=== PATIENT | male | born 1955 | race Caucasian/White ===

== ENCOUNTER 2018-01-02 11:51 | Day surgery (SDC) | payer BC ==
[2018-01-02 12:20] LABS: Absolute Lymphocytes (CBC) 0.6 K/uL (0.7-4.9); Absolute Monocytes 0.5 K/uL (0.1-1.3); Absolute Neutrophil 2.5 K/uL (1.8-8.0); Basophils % 0.7 % (0-1.3); Eosinophils % 2.8 % (0-4.4); Hematocrit 35.1 % (39.6-49.0); Lymphocytes % 15.8 % (15.3-44.8); MCH 28.7 pg (27.0-35.0); MCV 91.2 fL (80-100); Monocytes % 14.2 % (3.3-12.3); RBC Red Blood Cell Count 3.85 M/uL (4.33-5.43)
[2018-01-02 12:25] LABS: BUN Blood Urea Nitrogen 12 mg/dL (6-20); Bicarbonate 28 mEq/L (21-31); Glucose Level 103 mg/dL (65-120); Potassium 4.2 mEq/L (3.6-5.0); Sodium Level 137 mEq/L (135-145)
[2018-01-02] MEDS ORDERED: BUPIVACAINE 0.5% Inj,MDV 50 mL VIAL ONE (12:34)
[2018-01-02] MEDS ORDERED: Ringers Lactate 1,000 ML IV ONE (12:43)
[2018-01-02] MEDS ORDERED: CEFAZOLIN/SWI 1gm 1 GM/10 ML SYR ONE (12:43)
[2018-01-02] MEDS ORDERED: MIDAZOLAM HCL 2 MG/2 ML INJ ONE (12:54)
--- NOTE | 2018-01-02 13:01 | RAD REPORT ---
EXAM DESCRIPTION: RAD - Chest Pa And Lat (2 Views) - 01/02/2018 12:50 pm CLINICAL HISTORY: Preop chest, port removal and/ or replacement COMPARISON: None. TECHNIQUE: PA and lateral views of the chest were obtained. FINDINGS: The lungs are clear. Right-sided Port-A-Cath is in place. No suspicious port findings not ed. Heart size is normal and central vasculature is within normal limits. No pleural effusion or pne umothorax seen. No acute bony finding noted. No aortic abnormality. IMPRESSION: No acute cardiopulmonary process.
[2018-01-02] MEDS ORDERED: FENTANYL CITR 100 MCG/2 ML ONE (13:09)
[2018-01-02] MEDS ORDERED: PROPOFOL 200 MG/20 ML VIAL IV ONE (13:09)
[2018-01-02] MEDS ORDERED: ONDANSETRON HCL 40 MG/20 ML VIAL ONE (13:10)
--- NOTE | 2018-01-02 13:19 | EKG ---
Test Date: 2018-01-02 Test Time: 12:00:19 Envelope Fold Operator: KELLY MEASUREMENT RESULTS: Intervals: Rate: 53 NC: 160 QRSD: 90 QT: 430 QTc: 403 [place]: P: 63 NC: 160 QRS: 78 T: 70 INTERPRETIVE STATEMENTS: Sinus bradycardia Otherwise normal ECG Compared to ECG 08/07/2001 09:04:00 Sinus rhythm no longer present Electronically Signed On 01-02-18 13:18:47 CDT by Wes Rowell
--- NOTE | 2018-01-02 13:27 | P.BOP ---
Preoperative diagnosis: pancreatic cancer Postoperative diagnosis: same Primary procedure: Removal of portacath Estimated blood loss: <5cc Specimen: intact portacath Anesthesia: General Complications: None Drain(s): Other Transferred to: Recovery Room Condition: Good
--- NOTE | 2018-01-03 01:03 | OP ---
Date of Procedure: 01/02/2018 Surgeon: Brent Cruz MD Foreman Or Supervisor And Operator: None. Postoperative Diagnosis: Pancreatic cancer. Postoperative Diagnosis: Pancreatic cancer. Procedures: Pre removal of Port-A-Cath. Estimated Blood Loss: Less than 10 cc. Specimens: Port-A-Cath. Indications: This is a case of a 62-year-old patient, receiving chemotherapy through a Port-A-Cath b ut that Port-A-Cath, at least half of that is exposed. The skin on top of that disappear and needs t o be removed. The benefits, alternatives, and removal fully explained to the patient, which include but are not limited to infection, bleeding, damage to adjacent structures, anesthesia complication, M I, and even . He also understands this may not relieve any symptoms. He might need more than o ne surgical intervention. He understands he will require wound care. He signed a consent. Description Of Procedure: The patient was brought to the operating room, placed in the supine positi on. Anesthesia was done without complication. Right chest was prepped and draped in a sterile fashi on. A time-out was called. An incision was made in the skin. The Port-A-Cath was identified, so re ally identified with the skin because of the skin is necrotic already, so I removed the connection of the Port-A-Cath to the subcutaneous tissue and then pulled a Port-A-Cath intact and put pressure for 15 minutes in insertion site. The area was irrigated. No bleeding. The area was left to close by secondary intention put in a triple antibiotics and sterile dressings over the area. The patient glenna erated the procedure well. The patient was sent to recovery in stable condition. DISCHARGE SUMMARY Diagnosis: Pancreatic cancer. Procedure: Removal of Port-A-Cath. Disposition: Home. Activity: As tolerated. No heavy lifting. Followup: Followup in my office in 1 week. Call for appointment [phone]. Medications: The patient will use triple antibiotics that might need over the area twice a day may c lean the area with soap and water. MODESTO/ADRIANNA Voice ID: [id number] Report ID: [id number]
== END 2018-01-02 15:00 | disposition home or self-care (01) ==
LOC: OR 11:51
PROVIDERS: ATTEND Surgery
PROC: 0JPT0WZ Removal of Totally Implantable Vascular Access Device from Trunk Subcutaneous Tissue and Fascia, Open Approach (ICD-10-PCS; principal; 2018-01-02 13:15)
DX: Z45.2 Encounter for adjustment and management of vascular access device (principal); C25.9 Malignant neoplasm of pancreas, unspecified; Z88.6 Allergy status to analgesic agent
CPT/HCPCS: 36415; 71046; 80048; 85025; 88300; 93005; J0690; J2250; J2405; J3010

== ENCOUNTER 2018-01-11 08:33 | Day surgery (SDC) | payer BC ==
[2018-01-11] MEDS ORDERED: Ringers Lactate 1,000 ML IV ONE (08:46)
[2018-01-11] MEDS ORDERED: CEFAZOLIN/SWI 1gm 1 GM/10 ML SYR ONE (08:46)
[2018-01-11 09:01] LABS: Absolute Lymphocytes (CBC) 0.5 K/uL (0.7-4.9); Absolute Monocytes 0.4 K/uL (0.1-1.3); Absolute Neutrophil 1.8 K/uL (1.8-8.0); Basophils % 0.6 % (0-1.3); Hematocrit 35.1 % (39.6-49.0); Lymphocytes % 17.4 % (15.3-44.8); MCH 29.6 pg (27.0-35.0); MCV 89.5 fL (80-100); MPV 7.6 fL (7.6-11.3); Monocytes % 14.8 % (3.3-12.3); RBC Red Blood Cell Count 3.93 M/uL (4.33-5.43)
[2018-01-11 09:33] LABS: Bicarbonate 28 mEq/L (21-31); Glucose Level 116 mg/dL (65-120); Potassium 4.7 mEq/L (3.6-5.0); Sodium Level 139 mEq/L (135-145)
[2018-01-11 09:34] LABS: BUN Blood Urea Nitrogen 17 mg/dL (6-20)
[2018-01-11] MEDS ORDERED: NS 0.9% VIAL 20 ML ONE (11:11)
[2018-01-11] MEDS: LIDOCAINE 1% 20 ML MDV ONE ×2 (11:54→13:03)
[2018-01-11] MEDS: HEPARIN 5000 UNIT/ML 1 ML VIAL ONE ×2 (11:55→13:12)
[2018-01-11] MEDS ORDERED: MIDAZOLAM HCL 2 MG/2 ML INJ ONE (12:42)
[2018-01-11] MEDS ORDERED: PROPOFOL 200 MG/20 ML VIAL IV ONE (12:49)
[2018-01-11] MEDS ORDERED: FENTANYL CITR 100 MCG/2 ML ONE (12:49)
[2018-01-11] MEDS ORDERED: LIDOCAINE 1% MPF 5 ML VIAL ONE (12:49)
[2018-01-11] MEDS ORDERED: NEOSTIGMINE 1 MG/ML -5 ML SYRINGE ONE (13:23)
[2018-01-11] MEDS ORDERED: GLYCOPYRROLATE 0.2 MG/ML SYR ONE (13:23)
--- NOTE | 2018-01-11 13:30 | P.BOP ---
Preoperative diagnosis: pancratic cancer Postoperative diagnosis: same Primary procedure: 1. Placement of Portacath Secondary procedure: 2. interpretation of fluoroscopy Estimated blood loss: <10cc Specimen: none Anesthesia: General Complications: None Implants: single lumen portacath Transferred to: Recovery Room Condition: Good
--- NOTE | 2018-01-11 13:31 | RAD REPORT ---
EXAM DESCRIPTION: RAD - Fluoroscopy <1 Hour - 01/11/2018 1:25 pm FINDINGS: Fluoroscopy of the upper chest performed. Multiple portable C-arm views were obtained during fluoroscopic assisted placement of left subclavian Port-A-Cath. No suspicious or unexpected findings.
[2018-01-11] MEDS: MORPHINE 4 MG/ML SYR ONE ×2 (13:49→14:12)
--- NOTE | 2018-01-11 14:20 | RAD REPORT ---
EXAM DESCRIPTION: RAD - Chest Single View - 01/11/2018 2:06 pm CLINICAL HISTORY: Port-A-Cath placement COMPARISON: January 02, 2018 TECHNIQUE: AP portable chest image was obtained 1358 hours . FINDINGS: Since the last examination the right-sided Port-A-Cath has been removed. Left-sided Port-A -Cath has been placed. Tip is at the proximal most SVC. There is no left-sided pneumothorax or pleura l fluid collection. Lung lopez are clear. Cardiomediastinal silhouette within normal limits. IMPRESSION: Left subclavian Port-A-Cath with the tip in the proximal most SVC. No pneumothorax.
--- NOTE | 2018-01-13 05:24 | OP ---
Date of Procedure: 01/11/2018 Surgeon: Brent Cruz MD Preoperative Diagnosis: Pancreatic cancer. Postoperative Diagnosis: Pancreatic cancer. Procedures: 1.Placement of Port-A-Cath. 2.Interpretation of fluoroscopy. Estimated Blood Loss: Less than 10 cc. Specimen: None. Anesthesia: General plus local. Implant: A single-lumen Port-A-Cath in the left subclavian vein. Indications: This is the case of a 62-year-old patient with history of pancreatic cancer. He is rec eiving chemotherapy in another institution. Has a Port-A-Cath placed in another institution that hav e to be removed because of malfunction about a week ago. The patient was trying to see if he talks t o his oncologist about no chemotherapy or even using a PICC line. That was unsuccessful. He was sen t to us to have a Port-A-Cath placement. He was fully explained the benefits, alternatives, and risk s of Port-A-Cath placement which include, but not limited to infection, bleeding, damage to adjacent structures, anesthesia complication, pulmonary emboli, endocarditis, breaking of the catheter, deep v ein thrombosis, pneumothorax, CT, or even . He also understands this may not relieve the sympto ms. He might need more than one surgical intervention. He understood and signed the consent. Description Of Procedure: The patient was brought to the operating room, placed in supine position. Anesthesia was without complication. Left chest was prepped and draped in usual sterile fashion. A time-out was called. The patient was placed in Trendelenburg position. An 18-gauge needle was plac ed in the left subclavian vein at the first attempt. A guidewire was passed through, guided into the superior vena cava using fluoroscopy. The needle was removed. A small incision was made in the lef t upper chest with a cavity to allow the Port-A-Cath to be in. I placed an introducer sheath through the guidewire under direct fluoroscopy visualization, removed the guidewire, placed the catheter in, removed the introducer sheath. Then, the catheter was tunneled underneath the skin to meet the new incision to the left upper chest cut to proper size and connected to the Port-A-Cath using the manu cturer's specifications. Fluoroscopy once again was used. Looks to have good placement. Excellent backflow and inflow. The catheter was packed with heparin. The catheter was secured to the subcutan eous tissue and sutured to the subcutaneous tissue. The area was irrigated. Then after that we proc eeded to close the subcutaneous tissue with 3-0 chromic and skin in a subcuticular fashion with 3-0 c hromic and Steri-Strips on top. Sponge count and instrument counts were correct. The patient tolera latanya the procedure well. The patient was sent to recovery in stable condition. Chest x-ray was order ed stat. DISCHARGE SUMMARY Diagnosis: Pancreatic cancer. Procedure: Placement of a Port-A-Cath, interpretation under fluoroscopy. Disposition: Home. Activity: As tolerated. No heavy lifting. Followup: Follow up in my office in 1 week. Call for appointment [phone]. Keep area dry for 48 ho urs, then may shower. Keep Steri-Strips intact. May use the Port-A-Cath at any time. We are waitin g for labs pending and a chest x-ray to be negative. MODESTO/ADRIANNA Voice ID: [id number] Report ID: [id number]
== END 2018-01-11 14:50 | disposition home or self-care (01) ==
LOC: OR 08:33
PROVIDERS: ATTEND Surgery
PROC: 0JH60WZ Insertion of Totally Implantable Vascular Access Device into Chest Subcutaneous Tissue and Fascia, Open Approach (ICD-10-PCS; principal; 2018-01-11 11:30)
DX: C25.9 Malignant neoplasm of pancreas, unspecified (principal); Z88.6 Allergy status to analgesic agent
CPT/HCPCS: 36415; 71045; 76000; 80048; 85025; C1788; J0690; J1644; J2250; J2710; J3010

== ENCOUNTER 2018-05-02 16:45 | Emergency (ER) | payer BC ==
[2018-05-02 18:16] LABS: Absolute Lymphocytes (CBC) 0.3 K/uL (0.7-4.9); Absolute Monocytes 0.9 K/uL (0.1-1.3); Absolute Neutrophil 6.5 K/uL (1.8-8.0); Basophils % 0.2 % (0-1.3); Eosinophils % 0.2 % (0-4.4); Hematocrit 25.4 % (39.6-49.0); Lymphocytes % 3.8 % (15.3-44.8); MCV 83.1 fL (80-100); MPV 7.5 fL (7.6-11.3); Monocytes % 11.2 % (3.3-12.3); RBC Red Blood Cell Count 3.05 M/uL (4.33-5.43)
[2018-05-02 18:17] LABS: Protime INR 1.18
--- NOTE | 2018-05-02 18:26 | RAD REPORT ---
EXAM DESCRIPTION: CT - Head Brain Wo Cont - 05/02/2018 6:18 pm CLINICAL HISTORY: SYNCOPE Drowsiness COMPARISON: No comparisons TECHNIQUE: All CT scans are performed using dose optimization technique as appropriate and may inclu de automated exposure control or mA/KV adjustment according to patient size. FINDINGS: No intracranial hemorrhage, hydrocephalus or extra-axial fluid collection.No areas of brai n edema or evidence of midline shift. The paranasal sinuses and mastoids are clear. The calvarium is intact. IMPRESSION: No acute intracranial abnormality.
[2018-05-02 19:02] LABS: ALT/SGPT 37 U/L (12-78); AST/SGOT 25 U/L (15-37); Albumin 3.1 g/dL (3.4-5.0); Alkaline Phosphatase 109 U/L (45-117); BUN Blood Urea Nitrogen 20 mg/dL (7-18); Bicarbonate 23 mmol/L (21-32); Bilirubin Direct 0.1 mg/dL (0-0.2); Bilirubin Total 0.4 mg/dL (0.2-1.0); Glucose Level 201 mg/dL (74-106); Lipase 29 U/L (73-393); NT PRO-BNP 92 pg/mL (<125); Potassium 3.8 mmol/L (3.5-5.1); Sodium Level 141 mmol/L (136-145); Troponin (Emerg Dept Use Only) < 0.02 ng/mL (0.0-0.045)
[2018-05-02] MEDS ORDERED: NA CHLORIDE 0.9% 1,000 ML ONE ×2 (19:16→22:20)
--- NOTE | 2018-05-02 19:27 | RAD REPORT ---
EXAM DESCRIPTION: RAD - Chest Single View - 05/02/2018 7:01 pm CLINICAL HISTORY: COUGH Chest pain. COMPARISON: Chest Single View dated 01/11/2018; Chest Pa And Lat (2 Views) dated 01/02/2018 FINDINGS: Portable technique limits examination quality. The lungs are grossly clear. The heart is normal in size. No displaced fractures.Left-sided port cath eter its tip in the SVC. IMPRESSION: No acute intrathoracic process suspected.
--- NOTE | 2018-05-02 20:03 | RAD REPORT ---
EXAM DESCRIPTION: CT - Chest For Pe Angio - 05/02/2018 7:51 pm CLINICAL HISTORY: Chest pain. DYSPNEA COMPARISON: No comparisons TECHNIQUE: CT angiogram of the pulmonary arteries was performed with MIP. All CT scans are performed using dose optimization technique as appropriate and may include automated exposure control or mA/KV adjustment according to patient size. FINDINGS: No evidence of pulmonary thromboembolism. No acute aortic finding demonstrated. The lungs are clear. No significant pericardial or pleural fluid. No concerning bony finding. Poorly defined soft tissue is seen in the upper abdomen surrounding the region of the pancreas. 15 x 10 mm oval area of enhancement within these soft tissues likely represents a pseudoaneurysm. Thickeni ng of the distal esophagus is seen with mild dilatation. All of these findings are presumed to be rel ated to the given history of pancreatic carcinoma. No abdominal cross-sectional imaging is available for this patient at this institution. IMPRESSION: No evidence of pulmonary thromboembolism.
[2018-05-02 22:27] LABS: Urine Blood NEGATIVE (NEG); Urine Glucose NEGATIVE (NEG); Urine Protein NEGATIVE (NEG); Urine pH 6.5 (5.0-7.0)
--- NOTE | 2018-05-02 23:51 | ER ---
Nurse's Notes [facility] Name: Camden Soto Age: 62 yrs Sex: Male : 1955 Arrival Date: 05/02/2018 Time: 16:55 Bed 28 Private MD: Diagnosis: Weakness;Syncope and collapse;Volume depletion;Anemia, unspecified Presentation: 05/02 16:57 Presenting complaint: EMS states: patient was driving and became very weak, kr2 light-headed and nauseated. His blood pressure was 94/70s. He has a history of pancreatic cancer, diagnosed in August. Transition of care: patient was not received from another setting of care. Onset of symptoms was May 02, 2018. Risk Assessment: Do you want to hurt yourself or someone else? Patient reports no desire to harm self or others. Initial Sepsis Screen: Does the patient meet any 2 criteria? No. Patient's initial sepsis screen is negative. Does the patient have a suspected source of infection? No. Patient's initial sepsis screen is negative. Care prior to arrival: Medication(s) given: Normal saline infusion, 500 mL, zofran 4 mg. 16:57 Method Of Arrival: EMS: [facility] kr2 16:57 Acuity: MARIA TERESA 3 kr2 Triage Assessment: 17:02 General: Appears in no apparent distress. uncomfortable, slender, Behavior is kr2 cooperative, anxious, restless. Respiratory: Reports shortness of breath at rest on exertion Onset: The symptoms/episode began/occurred suddenly, the patient has mild shortness of breath. Historical: - Allergies: 17:06 No Known Allergies; kr2 - Home Meds: 17:06 Cipro Oral [Active]; kr2 - PMHx: 17:06 Cancer; Pancreatic; kr2 - Immunization history:: Adult Immunizations unknown. - Social history:: Smoking status: Patient/guardian denies using tobacco. - Ebola Screening: : No symptoms or risks identified at this time. - Family history:: not pertinent. Screenin:12 Abuse screen: Denies threats or abuse. Denies injuries from another. Nutritional kr2 screening: No deficits noted. Tuberculosis screening: No symptoms or risk factors identified. Fall Risk IV access (20 points). Assessment: 17:02 Pain: Denies pain. Cardiovascular: Rhythm is regular. Respiratory: Airway is patent kr2 Respiratory effort is even, unlabored, Respiratory pattern is regular, symmetrical, Breath sounds are clear bilaterally. 17:10 Reassessment: Patient was calm until family came to bedside, became anxious and stating kr2 that he needs his Cipro, "If I just get my Cipro the pain will go away in 5 minutes. He has a port-a-cath to left chest with catheter access in place but not secured. When asked what medication he receives through the port he stated, "My own stuff, that's none of your damn business, its my body I will do whatever I damn well please." Charge nurse notified. 19:15 Reassessment: Patient appears in no apparent distress at this time. Patient and/or rv family updated on plan of care and expected duration. Pain level reassessed. Patient is alert, oriented x 3, equal unlabored respirations, skin warm/dry/pink. 19:19 Reassessment: LEFT CONTACT NUMBER [id number]. rv 20:08 Reassessment: Patient appears in no apparent distress at this time. Patient and/or rv family updated on plan of care and expected duration. Pain level reassessed. Patient is alert, oriented x 3, equal unlabored respirations, skin warm/dry/pink. 21:19 Reassessment: Patient appears in no apparent distress at this time. Patient and/or rv family updated on plan of care and expected duration. Pain level reassessed. Patient is alert, oriented x 3, equal unlabored respirations, skin warm/dry/pink. 23:50 Reassessment: Patient appears in no apparent distress at this time. Patient and/or rv family updated on plan of care and expected duration. Pain level reassessed. Patient is alert, oriented x 3, equal unlabored respirations, skin warm/dry/pink. Vital Signs: 17:00 BP 104 / 70; Pulse 53; Resp 19; Temp 97.6; Pulse Ox 100% ; kr2 19:15 BP 98 / 63; Pulse 73; Resp 14; Pulse Ox 100% on R/A; rv 20:07 BP 112 / 54; Pulse 88; Pulse Ox 98% on R/A; rv 21:17 BP 103 / 69 Supine; Pulse 79; rv 21:17 BP 104 / 69 Sitting; Pulse 83; rv 21:17 BP 94 / 63 Standing; Pulse 102; rv 23:49 BP 105 / 64; Pulse 76; Resp 11; Pulse Ox 100% on R/A; rv 21:17 NO DIZZINESS rv 21:17 NO DIZZINESS rv 21:17 NO DIZZINESS rv ED Course: 16:55 Patient arrived in ED. kr2 16:57 Stephen Winchester MD is Attending Physician. douglas 16:59 Triage completed. kr2 17:01 Arm band placed on. kr2 17:05 Vee Larsen, RN is Primary Nurse. kr2 17:09 EKG done, by manufacturing process technician. reviewed by Stephen Winchester MD. sm3 17:13 Patient has correct armband on for positive identification. Bed in low position. Call kr2 light in reach. Side rails up X2. Adult w/ patient. configuration engineer on. Pulse ox on. NIBP on. Door closed. Warm blanket given. Head of bed elevated. 18:17 CT completed. Patient tolerated procedure well. Patient moved back from CT. jg6 18:18 CT Head Brain wo Cont In Process Unspecified. EDMS 18:40 Inserted saline lock: 20 gauge in right antecubital area, using aseptic technique. rv Blood collected. 19:01 XRAY Chest (1 view) In Process Unspecified. EDMS 19:18 Syed Michelle, MARILU is PHCP. pm1 19:[address] nj 19:51 CT Chest For PE Angio In Process Unspecified. EDMS 10 00:01 No provider procedures requiring assistance completed. IV discontinued, bleeding rv controlled, No redness/swelling at site. Pressure dressing applied. Administered Medications: 05/02 19:00 Drug: NS 0.9% 1000 ml Route: IV; Rate: 1 bolus; Site: right antecubital; rv 20:09 Follow up: IV Status: Completed infusion rv 22:18 Drug: NS 0.9% 1000 ml Route: IV; Rate: 1000 ml; Site: right antecubital; rv Outcome: 23:50 Discharge ordered by . pm1 05/03 00:02 Discharged to home via wheelchair. rv Condition: improved Discharge instructions given to patient, Instructed on discharge instructions, follow up and referral plans. medication usage, Demonstrated understanding of instructions, follow-up care, medications, Prescriptions given X 1. 00:02 Patient left the ED. rv Signatures: Dispatcher [employer] EDSC Stephen Winchester MD MD cha Marinas, Patrick, ADMINISTRATIVE ASSISTANT ADMINISTRATIVE ASSISTANT pm1 Mahendra Juarez Karey, RN RN kr2 Yamilak Henson 3 Zachary Suarez, RN RN Agustina Temple6 Corrections: (The following items were deleted from the chart) 05/02 17:16 17:10 Reassessment: Patient has a port-a-cath to left chest with catheter access in kr2 place. When asked what medication he receives through the port he stated, "My own stuff, that's none of your damn business, its my body I will do whatever I damn well please." kr2
--- NOTE | 2018-05-02 23:51 | EDPHYS ---
Physician Documentation [facility] Name: Camden Soto Age: 62 yrs Sex: Male : 1955 Arrival Date: 05/02/2018 Time: 16:55 Bed 28 Private MD: ED Physician Stephen Winchester HPI: 05/02 17:50 This 62 yrs old Male presents to ER via EMS with complaints of Near Syncope, douglas Shortness Of Breath. 17:50 The patient has experienced syncope, The patient has experienced near-syncope. Onset: douglas The symptoms/episode began/occurred just prior to arrival. Duration: This was a single episode, that lasted 20 second(s). Duration: This was a single episode. Context: the episode(s) was witnessed, by a bystander. Associated injury: The patient did not suffer any apparent associated injury. Associated signs and symptoms: The patient has no apparent associated signs or symptoms. Current symptoms: Currently, the patient is not experiencing any symptoms. The patient has experienced similar episodes in the past, a few times. Historical: - Allergies: 17:06 No Known Allergies; kr2 - Home Meds: 17:06 Cipro Oral [Active]; kr2 - PMHx: 17:06 Cancer; Pancreatic; kr2 - Immunization history:: Adult Immunizations unknown. - Social history:: Smoking status: Patient/guardian denies using tobacco. - Ebola Screening: : No symptoms or risks identified at this time. - Family history:: not pertinent. ROS: 17:50 Constitutional: Negative for fever, chills, and weight loss, Eyes: Negative for injury, douglas pain, redness, and discharge, ENT: Negative for injury, pain, and discharge, Neck: Negative for injury, pain, and swelling, Cardiovascular: Negative for chest pain, palpitations, and edema, Respiratory: Negative for shortness of breath, cough, wheezing, and pleuritic chest pain, Abdomen/GI: Negative for abdominal pain, nausea, vomiting, diarrhea, and constipation, Back: Negative for injury and pain, : Negative for injury, bleeding, discharge, and swelling, MS/Extremity: Negative for injury and deformity, Skin: Negative for injury, rash, and discoloration, Psych: Negative for depression, anxiety, suicide ideation, homicidal ideation, and hallucinations, Allergy/Immunology: Negative for hives, rash, and allergies, Endocrine: Negative for neck swelling, polydipsia, polyuria, polyphagia, and marked weight changes, Hematologic/Lymphatic: Negative for swollen nodes, abnormal bleeding, and unusual bruising. 17:50 Neuro: Positive for syncope, near syncope, weakness. Exam: 17:50 Constitutional: This is a well developed, well nourished patient who is awake, alert, douglas and in no acute distress. Head/Face: Normocephalic, atraumatic. Eyes: Pupils equal round and reactive to light, extra-ocular motions intact. Lids and lashes normal. Conjunctiva and sclera are non-icteric and not injected. Cornea within normal limits. Periorbital areas with no swelling, redness, or edema. ENT: Nares patent. No nasal discharge, no septal abnormalities noted. Tympanic membranes are normal and external auditory canals are clear. Oropharynx with no redness, swelling, or masses, exudates, or evidence of obstruction, uvula midline. Mucous membranes moist. Neck: Trachea midline, no thyromegaly or masses palpated, and no cervical lymphadenopathy. Supple, full range of motion without nuchal rigidity, or vertebral point tenderness. No Meningismus. Chest/axilla: Normal chest wall appearance and motion. Nontender with no deformity. No lesions are appreciated. Cardiovascular: Regular rate and rhythm with a normal S1 and S2. No gallops, murmurs, or rubs. Normal PMI, no JVD. No pulse deficits. Respiratory: Lungs have equal breath sounds bilaterally, clear to auscultation and percussion. No rales, rhonchi or wheezes noted. No increased work of breathing, no retractions or nasal flaring. Abdomen/GI: Soft, non-tender, with normal bowel sounds. No distension or tympany. No guarding or rebound. No evidence of tenderness throughout. Back: No spinal tenderness. No costovertebral tenderness. Full range of motion. Male : Normal genitalia with no discharge or lesions. Skin: Warm, dry with normal turgor. Normal color with no rashes, no lesions, and no evidence of cellulitis. MS/ Extremity: Pulses equal, no cyanosis. Neurovascular intact. Full, normal range of motion. Neuro: Awake and alert, GCS 15, oriented to person, place, time, and situation. Cranial nerves II-XII grossly intact. Motor strength 5/5 in all extremities. Sensory grossly intact. Cerebellar exam normal. Normal gait. Psych: Awake, alert, with orientation to person, place and time. Behavior, mood, and affect are within normal limits. 17:52 Chest/axilla: port a cath left , pt uses himself. douglas 19:19 Musculoskeletal/extremity: DVT Exam: No signs of deep vein thrombosis. no pain, no pm1 swelling, no tenderness, negative Homans' sign noted on exam, no appreciated bluish discoloration, no erythema, no increased warmth. Vital Signs: 17:00 BP 104 / 70; Pulse 53; Resp 19; Temp 97.6; Pulse Ox 100% ; kr2 19:15 BP 98 / 63; Pulse 73; Resp 14; Pulse Ox 100% on R/A; rv 20:07 BP 112 / 54; Pulse 88; Pulse Ox 98% on R/A; rv 21:17 BP 103 / 69 Supine; Pulse 79; rv 21:17 BP 104 / 69 Sitting; Pulse 83; rv 21:17 BP 94 / 63 Standing; Pulse 102; rv 23:49 BP 105 / 64; Pulse 76; Resp 11; Pulse Ox 100% on R/A; rv 21:17 NO DIZZINESS rv 21:17 NO DIZZINESS rv 21:17 NO DIZZINESS rv MDM: 16:57 Patient medically screened. douglas 17:53 Data reviewed: vital signs, nurses notes, lab test result(s), EKG, radiologic studies, douglas CT scan, plain films. 22:15 Counseling: I had a detailed discussion with the patient and/or guardian regarding: the pm1 historical points, exam findings, and any diagnostic results supporting the discharge/admit diagnosis, lab results, radiology results, the need for outpatient follow up, to return to the emergency department if symptoms worsen or persist or if there are any questions or concerns that arise at home. 23:49 Counseling: I had a detailed discussion with the patient and/or guardian regarding: the pm1 need for further work-up and treatment in the hospital. 23:49 Refusal of service: The patient/guardian displays adequate decision making capability pm1 and despite a detailed discussion of alternatives, benefits, risks, and consequences refuses: Admission to the hospital for further work-up and treatment, Does not want transfusion of blood or admission. Want to go home to continue his homeopathic medication regimen. 05/02 17:50 Order name: Basic Metabolic Panel; Complete Time: 19:03 [facility] 05/02 17:50 Order name: CBC with Diff; Complete Time: 18:20 douglas 05/02 17:50 Order name: LFT's; Complete Time: 19:03 [facility] 05/02 17:50 Order name: Magnesium; Complete Time: 19:03 [facility] 05/02 17:50 Order name: NT PRO-BNP; Complete Time: 19:03 [facility] 05/02 17:50 Order name: PT-INR; Complete Time: 18:20 [facility] 05/02 17:50 Order name: Troponin (emerg Dept Use Only); Complete Time: 19:03 [facility] 05/02 17:50 Order name: Lipase; Complete Time: 19:03 [facility] 05/02 17:50 Order name: Urine Culture [facility] 05/02 17:50 Order name: Blood Culture Adult (2) [facility] 05/02 18:22 Order name: D-Dimer; Complete Time: 19:02 [facility] 05/02 18:52 Order name: Type And Screen; Complete Time: 21:55 [facility] 05/02 20:28 Order name: ABO/RH no charge; Complete Time: 21:55 EDMS 05/02 22:06 Order name: Urine Dipstick--Ancillary (enter results); Complete Time: 22:36 mw2 05/02 17:50 Order name: XRAY Chest (1 view); Complete Time: 21:55 [facility] 05/02 17:50 Order name: EKG; Complete Time: 17:51 [facility] 05/02 17:50 Order name: Cardiac monitoring; Complete Time: 18:30 [facility] 05/02 17:50 Order name: EKG - Nurse/Tech; Complete Time: 22:21 [facility] 05/02 17:50 Order name: IV Saline Lock; Complete Time: 18:30 [facility] 05/02 17:50 Order name: Labs collected and sent; Complete Time: 18:30 [facility] 05/02 17:50 Order name: O2 Per Protocol; Complete Time: 18:30 [facility] 05/02 17:50 Order name: O2 Sat Monitoring; Complete Time: 18:30 [facility] 05/02 17:50 Order name: Urine Dipstick-Ancillary (obtain specimen); Complete Time: 22:21 [facility] 05/02 17:50 Order name: CT Head Brain wo Cont; Complete Time: 18:52 [facility] 05/02 18:53 Order name: Orthostatic Blood Pressure; Complete Time: 21:19 [facility] 05/02 19:03 Order name: CT Chest For PE Angio; Complete Time: 21:55 [facility] Administered Medications: 19:00 Drug: NS 0.9% 1000 ml Route: IV; Rate: 1 bolus; Site: right antecubital; rv 20:09 Follow up: IV Status: Completed infusion rv 22:18 Drug: NS 0.9% 1000 ml Route: IV; Rate: 1000 ml; Site: right antecubital; rv Disposition: 05/03 07:29 Co-signature as Attending Physician, Stephen Winchester MD I agree with the assessment and [facility] plan of care. Disposition: 05/02/18 23:50 Discharged to Home. Impression: Weakness, Syncope and collapse, Volume depletion, Anemia, unspecified. - Condition is Stable. - Discharge Instructions: Iron Deficiency Anemia, Adult, Anemia, Nonspecific, Syncope, Weakness, Near-Syncope, Mxfv-[id number]-Ishd, Syncope, Xzpc-qh-Ybyd, Weakness, Zzyx-vg-Sfuy, Iron Deficiency Anemia, Adult, Kkit-tb-Mgsi. - Prescriptions for Ferrous Sulfate 325 mg (65 mg Iron) Oral Tablet - take 1 tablet by ORAL route every 12 hours; 60 tablet. - Medication Reconciliation Form, Thank You Letter, Antibiotic Education, Prescription Opioid Use form. - Follow up: Private Physician; When: 2 - 3 days; Reason: Recheck today's complaints, Continuance of care, Re-evaluation by your physician. - Problem is new. - Symptoms have improved. Signatures: Dispatcher [employer] Stephen Sharp MD MD cha Marinas, Patrick, CHILD STUDY TEAM DIRECTOR CHILD STUDY TEAM DIRECTOR pm1 Vee Larsen RN RN kr2 Zachary Suarez RN RN rv Corrections: (The following items were deleted from the chart) 00:02 05/02 23:50 05/02/2018 23:50 Discharged to Home. Impression: Weakness; Syncope and rv collapse; Volume depletion; Anemia, unspecified. Condition is Stable. Discharge Instructions: Syncope, Weakness, Near-Syncope, Mquo-vo-Lnvn, Syncope, Bzmu-ke-Hksl, Weakness, Yndd-ns-Ymyj, Iron Deficiency Anemia, Adult, Anemia, Nonspecific, Iron Deficiency Anemia, Adult, Sazw-bm-Buws. Prescriptions for Ferrous Sulfate 325 mg (65 mg Iron) Oral Tablet - take 1 tablet by ORAL route every 12 hours; 60 tablet. and Forms are Medication Reconciliation Form, Thank You Letter, Antibiotic Education, Prescription Opioid Use. Follow up: Private Physician; When: 2 - 3 days; Reason: Recheck today's complaints, Continuance of care, Re-evaluation by your physician. Problem is new. Symptoms have improved. pm1
--- NOTE | 2018-05-03 06:51 | EKG ---
Test Date: 2018-05-02 Test Time: 17:04:56 Marketing Clerk: ARMANDO MEASUREMENT RESULTS: Intervals: Rate: 83 MD: 148 QRSD: 90 QT: 400 QTc: 470 [place]: P: 54 MD: 148 QRS: 62 T: 45 INTERPRETIVE STATEMENTS: Normal sinus rhythm Normal ECG Compared to ECG 01/02/2018 12:00:19 Sinus bradycardia no longer present Electronically Signed On 05-03-18 06:50:25 CDT by Shiv Bustos
== END 2018-05-03 00:02 | disposition home or self-care (01) ==
LOC: ER 16:45
DX: E86.9 Volume depletion, unspecified (principal); R53.1 Weakness; D64.9 Anemia, unspecified; Z85.07 Personal history of malignant neoplasm of pancreas
CPT/HCPCS: 36415; 70450; 71045; 71275; 80048; 80076; 81003; 83690; 83735; 83880; 84484; 85025; 85379; 85610; 86850; 86900; 86901; 87040; 87086; 87088; 93005; 96360; 99285; J7030; Q9967

== ENCOUNTER 2018-05-06 23:58 | Emergency (ER) | payer BC ==
[2018-05-07] MEDS ORDERED: LIDOCAINE VISCOUS 2% SOLN 15 ML UDC ONE (00:51)
[2018-05-07] MEDS ORDERED: PANTOPRAZOLE 40 MG INJ ONE (00:51)
[2018-05-07] MEDS ORDERED: NA CHLORIDE 0.9% 1,000 ML ONE (01:30)
[2018-05-07] MEDS ORDERED: NA CHLORIDE 0.9% 500 ML ONE ×2 (01:30→02:38)
[2018-05-07 01:32] LABS: Absolute Lymphocytes (CBC) 0.4 K/uL (0.7-4.9); Absolute Monocytes 0.5 K/uL (0.1-1.3); Basophils % 0.2 % (0-1.3); Eosinophils % 0.1 % (0-4.4); Lymphocytes % 7.4 % (15.3-44.8); MCH 28.8 pg (27.0-35.0); MCV 84.9 fL (80-100); MPV 7.7 fL (7.6-11.3); Monocytes % 10.1 % (3.3-12.3); RBC Red Blood Cell Count 1.84 M/uL (4.33-5.43)
[2018-05-07 01:46] LABS: Hematocrit 15.6 % (39.6-49.0)
[2018-05-07 01:52] LABS: ALT/SGPT 28 U/L (12-78); AST/SGOT 15 U/L (15-37); Albumin 2.7 g/dL (3.4-5.0); Alkaline Phosphatase 90 U/L (45-117); BUN Blood Urea Nitrogen 20 mg/dL (7-18); Bicarbonate 27 mmol/L (21-32); Bilirubin Direct 0.1 mg/dL (0-0.2); Bilirubin Total 0.2 mg/dL (0.2-1.0); Glucose Level 153 mg/dL (74-106); Lipase 36 U/L (73-393); Potassium 4.1 mmol/L (3.5-5.1); Protein, Total 5.2 g/dL (6.4-8.2); Sodium Level 140 mmol/L (136-145)
--- NOTE | 2018-05-07 02:35 | EDPHYS ---
Physician Documentation [facility] Name: Camden Soto Age: 62 yrs Sex: Male : 1955 Arrival Date: 05/07/2018 Time: 00:01 Bed 19 Private MD: ED Physician Jean Schroeder HPI: 05/07 00:52 This 62 yrs old Male presents to ER via EMS with unknown complaint. pkl 00:52 The patient presents to the emergency department with rectal bleeding, a moderate pkl amount, dark red blood with bowel movement. Onset: The symptoms/episode began/occurred 3 day(s) ago. Abdominal pain: located in the right upper quadrant, left upper quadrant, right lower quadrant and left lower quadrant. Associated signs and symptoms: Pertinent positives: syncope. Patient diagnosed with stage 4 pancreatic cancer in September 2017. Historical: - Allergies: 00:07 Codeine; tl2 - Home Meds: 00:07 Iron CR Oral [Active]; tl2 - PMHx: 00:07 stage 4 pancreatic cancer; tl2 - PSHx: 00:07 Appendectomy; tl2 - Immunization history:: Adult Immunizations up to date. - Social history:: Smoking status: Patient/guardian denies using tobacco. - Ebola Screening: : No symptoms or risks identified at this time. ROS: 00:52 Eyes: Negative for injury, pain, redness, and discharge, ENT: Negative for injury, pkl pain, and discharge, Neck: Negative for injury, pain, and swelling, Cardiovascular: Negative for chest pain, palpitations, and edema, Respiratory: Negative for shortness of breath, cough, wheezing, and pleuritic chest pain. 00:52 Abdomen/GI: Positive for abdominal pain, rectal bleeding, of the right upper quadrant, left upper quadrant, right lower quadrant and left lower quadrant. 00:52 Back: Negative for acute changes. 00:52 : Negative for urinary symptoms. 00:52 MS/extremity: Negative for acute changes. 00:52 Skin: Negative for rash. 00:52 Neuro: Positive for syncope. Exam: 00:52 Head/Face: Normocephalic, atraumatic. Eyes: Pupils equal round and reactive to light, pkl extra-ocular motions intact. Lids and lashes normal. Conjunctiva and sclera are non-icteric and not injected. Cornea within normal limits. Periorbital areas with no swelling, redness, or edema. ENT: Nares patent. No nasal discharge, no septal abnormalities noted. Tympanic membranes are normal and external auditory canals are clear. Oropharynx with no redness, swelling, or masses, exudates, or evidence of obstruction, uvula midline. Mucous membranes moist. Neck: Trachea midline, no thyromegaly or masses palpated, and no cervical lymphadenopathy. Supple, full range of motion without nuchal rigidity, or vertebral point tenderness. No Meningismus. Chest/axilla: Normal chest wall appearance and motion. Nontender with no deformity. No lesions are appreciated. Cardiovascular: Regular rate and rhythm with a normal S1 and S2. No gallops, murmurs, or rubs. Normal PMI, no JVD. No pulse deficits. Respiratory: Lungs have equal breath sounds bilaterally, clear to auscultation and percussion. No rales, rhonchi or wheezes noted. No increased work of breathing, no retractions or nasal flaring. 00:52 Abdomen/GI: Palpation: soft, mild abdominal tenderness, in all quadrants. 00:52 Abdomen/GI: Rectal exam: Stool: guaiac positive, the exam is chaperoned by the nurse. 00:52 Back: Exam negative for acute changes. 00:52 : Exam negative for acute changes. 00:52 Musculoskeletal/extremity: Exam is negative for acute changes. 00:52 Skin: Exam negative for rash. 00:52 Neuro: Orientation: is normal, Mentation: is normal, Cranial nerves: grossly normal, Motor: is normal. Vital Signs: 00:07 BP 101 / 54; Pulse 86; Resp 20; Temp 99.4(O); Pulse Ox 98% on R/A; Weight 52.62 kg; tl2 Height 5 ft. 4 in. (162.56 cm); Pain 8/10; 01:00 BP 91 / 60; Pulse 88; Resp 17 S; Pulse Ox 99% on 2 lpm NC; jd3 02:03 BP 103 / 63; Pulse 80; Resp 19 S; Pulse Ox 100% on 2 lpm NC; jd3 03:35 BP 94 / 60; Pulse 77; Resp 16 S; Pulse Ox 100% on 2 lpm NC; jd3 04:47 BP 91 / 64; Pulse 92; Resp 16 S; Pulse Ox 95% on R/A; jd3 00:07 Body Mass Index 19.91 (52.62 kg, 162.56 cm) tl2 MDM: 00:18 Patient medically screened. pkl 02:31 Data reviewed: vital signs, nurses notes, lab test result(s), EKG, radiologic studies, pkl plain films. ED course: Talked to Dr. Loo, transfer to [facility]. 05/07 00:38 Order name: Basic Metabolic Panel; Complete Time: :55 pkl 05/07 00:38 Order name: CBC with Diff; Complete Time: 55 pkl 05/07 00:38 Order name: Creatinine for Radiology; Complete Time: 55 pkl 05/07 00:38 Order name: Hepatic Function; Complete Time: pkl 05/07 00:38 Order name: Lipase; Complete Time: 55 pkl 05/07 00:39 Order name: Type And Screen pkl 05/07 02:01 Order name: Abdomen 1 View (KUB) EDMS 05/07 02:03 Order name: Chest Single View EDMS 05/07 02:22 Order name: Packed RBC Leukored -1 EDMS 05/07 00:36 Order name: EKG - Nurse/Tech; Complete Time: 00:37 ds4 05/07 00:36 Order name: EKG; Complete Time: 00:37 ds4 05/07 00:38 Order name: IV Saline Lock; Complete Time: 01:25 pkl 05/07 00:38 Order name: Labs collected and sent; Complete Time: 01:25 pkl 05/07 00:38 Order name: EKG; Complete Time: 00:39 pkl Administered Medications: 00:49 Drug: Viscous Lidocaine Liquid (4 %) 5 ml Route: Mucous Membrane; jd3 04:49 Follow up: Response: No adverse reaction jd3 01:35 Drug: NS 0.9% 500 ml Route: IV; Rate: bolus; Site: left antecubital; jd3 04:49 Follow up: Response: No adverse reaction; IV Status: Completed infusion; IV Intake: jd3 500ml 01:35 Drug: NS 0.9% 1000 ml Route: IV; Rate: 125 ml/hr; Site: left antecubital; jd3 05:28 Follow up: Response: No adverse reaction jd3 01:40 Drug: ProTONIX 40 mg Route: IVP; Site: left antecubital; jd3 04:48 Follow up: Response: No adverse reaction jd3 Disposition: 05/07/18 02:35 Transfer ordered to [facility]. Diagnosis is Rectal bleeding. Syncope. Stage 4 pancreatic cancer. - Reason for transfer: Higher level of care. - Accepting physician is Dr. Loo. - Condition is Stable. - Problem is new. - Symptoms are unchanged. Signatures: Dispatcher [employer] [facility] Jean Schroeder MD MD pkl Daniel Obregon ds4 Kelsea Jacinto, RN RN tl2 Owen Berg RN RN jd3 Corrections: (The following items were deleted from the chart) 02:01 00:39 Abdomen Acute Series+RAD.RAD.BRZ ordered. [facility] 05:28 02:35 05/07/2018 02:35 Transfer ordered to [facility]. Diagnosis is jd3 Rectal bleeding. Syncope. Stage 4 pancreatic cancer. Reason for transfer: Higher level of care. Accepting physician is Dr. Loo. Condition is Stable. Problem is new. Symptoms are unchanged. pkl
--- NOTE | 2018-05-07 02:35 | ER ---
Nurse's Notes [facility] Name: Camden Soto Age: 62 yrs Sex: Male : 1955 Arrival Date: 05/07/2018 Time: 00:01 Bed 19 Private MD: Diagnosis: Rectal bleeding. Syncope. Stage 4 pancreatic cancer Presentation: 05/07 00:05 Presenting complaint: EMS states: Pt passed out while using the restroom. Pt diagnosed tl2 with stage 4 pancreatic cancer in September. Pt reports rectal bleeding 3 days ago and states he passed a tumor while on a colonic machine on . . Pt AOx4, reports abdominal pain. Transition of care: patient was not received from another setting of care. Onset of symptoms was May 07, 2018. Risk Assessment: Do you want to hurt yourself or someone else? Patient reports no desire to harm self or others. Initial Sepsis Screen: Does the patient meet any 2 criteria? No. Patient's initial sepsis screen is negative. Does the patient have a suspected source of infection? No. Patient's initial sepsis screen is negative. Care prior to arrival: None. 00:05 Method Of Arrival: [facility] tl2 00:05 Acuity: MARIA TERESA 3 tl2 Historical: - Allergies: 00:07 Codeine; tl2 - Home Meds: 00:07 Iron CR Oral [Active]; tl2 - PMHx: 00:07 stage 4 pancreatic cancer; tl2 - PSHx: 00:07 Appendectomy; tl2 - Immunization history:: Adult Immunizations up to date. - Social history:: Smoking status: Patient/guardian denies using tobacco. - Ebola Screening: : No symptoms or risks identified at this time. Screenin:08 Abuse screen: Denies threats or abuse. Nutritional screening: No deficits noted. tl2 Tuberculosis screening: No symptoms or risk factors identified. Fall Risk Gait- Weak (10 pts.). Assessment: 00:20 General: Appears uncomfortable, Behavior is cooperative, anxious. Pain: Complains of jd3 pain in abdomen Quality of pain is described as aching, sharp. Neuro: Level of Consciousness is awake, alert, obeys commands, Oriented to person, place, time, situation, Reports dizziness, weakness. Cardiovascular: Capillary refill < 3 seconds Patient's skin is warm and dry. Respiratory: Reports shortness of breath Airway is patent Respiratory effort is even, unlabored, Respiratory pattern is regular, symmetrical, Breath sounds are clear bilaterally. GI: Abdomen is flat, Bowel sounds present X 4 quads. Abd is soft Abdomen is tender to palpation Reports bloody stool. : No signs and/or symptoms were reported regarding the genitourinary system. EENT: No signs and/or symptoms were reported regarding the EENT system. Derm: Skin is intact, Skin is dry, Skin is pale, Skin temperature is warm. Musculoskeletal: Circulation, motion, and sensation intact. Range of motion: intact in all extremities. 01:20 Reassessment: Patient appears in no apparent distress at this time. No changes from jd3 previously documented assessment. Patient and/or family updated on plan of care and expected duration. Pain level reassessed. Patient is alert, oriented x 3, equal unlabored respirations, skin warm/dry/pink. 02:03 Reassessment: Patient appears in no apparent distress at this time. No changes from jd3 previously documented assessment. Patient and/or family updated on plan of care and expected duration. Pain level reassessed. Patient is alert, oriented x 3, equal unlabored respirations, skin warm/dry/pink. 02:50 Reassessment: Patient appears in no apparent distress at this time. No changes from jd3 previously documented assessment. Patient and/or family updated on plan of care and expected duration. Pain level reassessed. Patient is alert, oriented x 3, equal unlabored respirations, skin warm/dry/pink. blood products started. 03:35 Reassessment: Patient appears in no apparent distress at this time. No changes from jd3 previously documented assessment. Patient and/or family updated on plan of care and expected duration. Pain level reassessed. Patient is alert, oriented x 3, equal unlabored respirations, skin warm/dry/pink. report given to Saba Barajas RN at [facility]. awaiting starting the second unit of blood before transfer. 04:25 Reassessment: Patient appears in no apparent distress at this time. Patient and/or jd3 family updated on plan of care and expected duration. Pain level reassessed. Patient is alert, oriented x 3, equal unlabored respirations, skin warm/dry/pink. second unit of blood started, EMS called for transport. 04:47 Reassessment: Patient appears in no apparent distress at this time. No changes from jd3 previously documented assessment. Patient and/or family updated on plan of care and expected duration. Pain level reassessed. Patient is alert, oriented x 3, equal unlabored respirations, skin warm/dry/pink. awaiting transport. 05:23 Reassessment: Patient appears in no apparent distress at this time. Patient and/or jd3 family updated on plan of care and expected duration. Pain level reassessed. Patient is alert, oriented x 3, equal unlabored respirations, skin warm/dry/pink. report given to EMS. Vital Signs: 00:07 BP 101 / 54; Pulse 86; Resp 20; Temp 99.4(O); Pulse Ox 98% on R/A; Weight 52.62 kg; tl2 Height 5 ft. 4 in. (162.56 cm); Pain 8/10; 01:00 BP 91 / 60; Pulse 88; Resp 17 S; Pulse Ox 99% on 2 lpm NC; jd3 02:03 BP 103 / 63; Pulse 80; Resp 19 S; Pulse Ox 100% on 2 lpm NC; jd3 03:35 BP 94 / 60; Pulse 77; Resp 16 S; Pulse Ox 100% on 2 lpm NC; jd3 04:47 BP 91 / 64; Pulse 92; Resp 16 S; Pulse Ox 95% on R/A; jd3 00:07 Body Mass Index 19.91 (52.62 kg, 162.56 cm) tl2 ED Course: 00:01 Patient arrived in ED. jd3 00:06 Triage completed. tl2 00:07 Arm band placed on right wrist. tl2 00:08 Patient has correct armband on for positive identification. Placed in gown. Bed in low tl2 position. Call light in reach. Side rails up X2. Adult w/ patient. 00:18 Jean Schroeder MD is Attending Physician. pkl 00:20 Owen Berg RN is Primary Nurse. jd3 00:35 EKG done, by ED staff, reviewed by Jean Schroeder MD. ds4 01:24 Inserted saline lock: 20 gauge in left antecubital area, using aseptic technique. Blood ds4 collected. 01:25 Basic Metabolic Panel Sent. ds4 01:25 Lipase Sent. ds4 01:25 CBC with Diff Sent. ds4 01:25 Hepatic Function Sent. ds4 01:25 Creatinine for Radiology Sent. ds4 01:25 Type And Screen Sent. 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 tm4 01:50 Notified ED physician of a critical lab result(s). hemoglobin 5.3 and hematocrit 15.6. jd3 01:55 Initiated transfer to [facility]. Spoke with Elisabeth Johnson. cc 02:06 Abdomen 1 View (KUB) In Process Unspecified. EDMS 02:06 Chest Single View In Process Unspecified. EDMS 02:29 Administrative approval for transfer to [facility] was given by Elisabeth Johnson. Bed cc assignment pending. 02:43 Received bed assignment: [place] [id number] MICU Bed 5. cc 05:24 No provider procedures requiring assistance completed. Patient transferred, IV remains jd3 in place. Administered Medications: 00:49 Drug: Viscous Lidocaine Liquid (4 %) 5 ml Route: Mucous Membrane; jd3 04:49 Follow up: Response: No adverse reaction jd3 01:35 Drug: NS 0.9% 500 ml Route: IV; Rate: bolus; Site: left antecubital; jd3 04:49 Follow up: Response: No adverse reaction; IV Status: Completed infusion; IV Intake: jd3 500ml 01:35 Drug: NS 0.9% 1000 ml Route: IV; Rate: 125 ml/hr; Site: left antecubital; jd3 05:28 Follow up: Response: No adverse reaction jd3 01:40 Drug: ProTONIX 40 mg Route: IVP; Site: left antecubital; jd3 04:48 Follow up: Response: No adverse reaction jd3 Intake: 04:49 IV: 500ml; Total: 500ml. jd3 Outcome: 02:35 ER care complete, transfer ordered by . pkisaias 05:24 Transferred by ground EMS to [facility], Transfer form completed. X-rays jd3 sent w/ patient. Note: report given Saba Barajas RN 05:24 Condition: stable 05:24 Instructed on the need for transfer, Demonstrated understanding of instructions. 05:28 Patient left the ED. jd3 Signatures: Dispatcher [employer] EDJean Barahona MD MD pkl Radha Ballard tm4 Rosa Laurent cc Daniel Obregon ds4 Kelsea Jacinto RN RN tl2 Owen Berg, PRITI RN jd3 Corrections: (The following items were deleted from the chart) 02:03 02:03 Reassessment: Patient appears in no apparent distress at this time. Patient jd3 and/or family updated on plan of care and expected duration. Pain level reassessed. Patient is alert, oriented x 3, equal unlabored respirations, skin warm/dry/pink. jd3 03:06 02:45 Reassessment: Patient appears in no apparent distress at this time. No changes jd3 from previously documented assessment. Patient and/or family updated on plan of care and expected duration. Pain level reassessed. Patient is alert, oriented x 3, equal unlabored respirations, skin warm/dry/pink. blood products started jd3 03:38 03:35 Reassessment: Patient appears in no apparent distress at this time. No changes jd3 from previously documented assessment. Patient and/or family updated on plan of care and expected duration. Pain level reassessed. Patient is alert, oriented x 3, equal unlabored respirations, skin warm/dry/pink. report given to Saba Barajas RN at [facility]. jd3
--- NOTE | 2018-05-07 11:42 | RAD REPORT ---
EXAM DESCRIPTION: RAD - Chest Single View - 05/07/2018 2:07 am CLINICAL HISTORY: PAIN Chest pain. COMPARISON: Abdomen 1 View (KUB) dated 05/07/2018; Chest Single View dated 05/02/2018; Chest Single Vi ew dated 01/11/2018; Chest Pa And Lat (2 Views) dated 01/02/2018 FINDINGS: Portable technique limits examination quality. The lungs are grossly clear. The heart is normal in size. No displaced fractures.Left-sided port cath eter its tip in the SVC. IMPRESSION: No acute intrathoracic process suspected.
--- NOTE | 2018-05-07 11:42 | RAD REPORT ---
EXAM DESCRIPTION: RAD - Abdomen 1 View (KUB) - 05/07/2018 2:07 am CLINICAL HISTORY: G.I.Bleeding;Abd pain Pain COMPARISON: No comparisons FINDINGS: The bowel gas pattern is non-obstructive. No evidence of free air or pneumatosis. No suspi cious calcifications. No significant bony findings. IMPRESSION: Negative examination.
--- NOTE | 2018-05-08 07:31 | EKG ---
Test Date: 2018-05-07 Test Time: 00:22:03 Hazmat Cdl Driver: KAYLAH MEASUREMENT RESULTS: Intervals: Rate: 81 FL: 136 QRSD: 96 QT: 396 QTc: 460 [place]: P: 52 FL: 136 QRS: 65 T: 67 INTERPRETIVE STATEMENTS: Normal sinus rhythm Normal ECG Compared to ECG 05/02/2018 17:04:56 No significant changes Electronically Signed On 05-08-18 07:30:41 CDT by Wes Rowell
== END 2018-05-07 05:28 | disposition short-term general hospital (02) ==
LOC: ER 23:58
DX: C25.9 Malignant neoplasm of pancreas, unspecified (principal); R55 Syncope and collapse; Z88.6 Allergy status to analgesic agent
CPT/HCPCS: 36415; 71045; 74018; 80048; 80076; 83690; 85025; 86850; 86900; 86901; 93005; 96361; 96374; 99285; C9113; J7030; P9016

== ENCOUNTER 2018-05-15 07:19 | Emergency (ER) | payer BC ==
[2018-05-15] MEDS ORDERED: PANTOPRAZOLE 40 MG INJ ONE (07:40)
[2018-05-15] MEDS ORDERED: NA CHLORIDE 0.9% 1,000 ML ONE ×4 (07:41→09:11)
[2018-05-15] MEDS ORDERED: MORPHINE 4 MG/ML SYR ONE (07:58)
[2018-05-15] MEDS ORDERED: ONDANSETRON 4 MG/2 ML VIAL ONE (07:58)
[2018-05-15 08:13] LABS: ALT/SGPT 23 U/L (12-78); AST/SGOT 26 U/L (15-37); Albumin 2.5 g/dL (3.4-5.0); Alkaline Phosphatase 93 U/L (45-117); BUN Blood Urea Nitrogen 22 mg/dL (7-18); Bicarbonate 23 mmol/L (21-32); Bilirubin Direct < 0.1 mg/dL (0-0.2); Bilirubin Total 0.3 mg/dL (0.2-1.0); Glucose Level 274 mg/dL (74-106); Lipase 38 U/L (73-393); Magnesium 2.4 mg/dL (1.8-2.4); NT PRO-BNP 34 pg/mL (<125); Potassium 5.3 mmol/L (3.5-5.1); Protein, Total 5.5 g/dL (6.4-8.2); Sodium Level 133 mmol/L (136-145); Troponin (Emerg Dept Use Only) < 0.02 ng/mL (0.0-0.045)
--- NOTE | 2018-05-15 08:15 | RAD REPORT ---
EXAM DESCRIPTION: RAD - Chest Single View - 05/15/2018 7:51 am CLINICAL HISTORY: Cough, shortness of breath COMPARISON: May 07 TECHNIQUE: AP portable chest image was obtained 0736 hours . FINDINGS: No consolidation, mass or failure finding suspected. Slight increase in opacification in t he right apex is believed to be a summation artifact of overlying structures. This can be monitored a s clinical findings warrant. Left subclavian Port-A-Cath is unchanged in position. Heart and vasculat ure are normal. No measurable pleural effusion and no pneumothorax. No acute bony abnormality seen. N o acute aortic findings suspected. IMPRESSION: No acute cardiopulmonary process. Subtle increased opacification at the right lung apex is believed to be summation artifact but can be monitored if the patient remains symptomatic.
[2018-05-15] MEDS ORDERED: PIPER/TAZO/NS 3.375gm 3.375 GM/100 ML BAG ONE (08:19)
[2018-05-15 08:24] LABS: Absolute Lymphocytes (CBC) 0.3 K/uL (0.7-4.9); Absolute Monocytes 0.6 K/uL (0.1-1.3); MPV 8.1 fL (7.6-11.3)
[2018-05-15 08:28] LABS: Absolute Neutrophil 11.4 K/uL (1.8-8.0); Basophils % 0.4 % (0-1.3); Eosinophils % 0.1 % (0-4.4); Lymphocytes % 2.3 % (15.3-44.8); MCV 85.3 fL (80-100); Monocytes % 5.1 % (3.3-12.3); RBC Red Blood Cell Count 2.09 M/uL (4.33-5.43)
[2018-05-15 08:34] LABS: Protime INR 1.29
[2018-05-15 08:34] LABS: Hematocrit 17.8 % (39.6-49.0)
--- NOTE | 2018-05-15 08:36 | ER ---
Nurse's Notes [facility] Name: Camden Soto Age: 62 yrs Sex: Male : 1955 Arrival Date: 05/15/2018 Time: 07:20 Bed 4 Private MD: Diagnosis: Abdominal tenderness;Gastrointestinal hemorrhage, unspecified;Anemia, unspecified;Hypotension Presentation: 05/15 07:11 Presenting complaint: EMS states: pt is from home, lives with family, has Pancreatic tw2 Cancer, was diagnosed in September, recently hospitalized at [facility], would like to go there today, having dark tarry stools since yesterday morning, does not take any meds and has no treatment, pt states " the pain was so bad i took a supradol from [facility]" , initial BP was 73/50, pt went to stand and did have a syncopal episode, home o2 as needed was 88% for us, we placed on a non-rebreather, he is pale with poor cap refill, c/o pain /10, he refused IV access, he has a PORT A CATH upper LEFT Chest that he accesses himself and it is currently accessed, allergy to Codeine. Transition of care: patient was not received from another setting of care. Onset of symptoms was May 15, 2018. Risk Assessment: Do you want to hurt yourself or someone else? Patient reports no desire to harm self or others. Initial Sepsis Screen: Does the patient meet any 2 criteria? Systolic BP < 90 mmHg. Mean Arterial Pressure (MAP) < 65. HR > 90 bpm. Yes. 07:11 Method Of Arrival: EMS: [facility] tw2 07:11 Acuity: MARIA TERESA 2 tw2 07:11 Initial Sepsis Screen: Does the patient have a suspected source of infection? Yes: tw2 Other: unknown. Care prior to arrival: Oxygen administered. via a non-rebreather mask. Historical: - Allergies: 08:09 Codeine; tw2 - PMHx: 08:09 stage 4 pancreatic cancer; tw2 - PSHx: 08:09 Appendectomy; tw2 - Immunization history:: Adult Immunizations. - Social history:: Smoking status: . - Family history:: not pertinent. - Ebola Screening: : Patient denies travel to an Ebola-affected area in the 21 days before illness onset. Screenin:19 Abuse screen: Denies threats or abuse. Nutritional screening: No deficits noted. tw2 Tuberculosis screening: No symptoms or risk factors identified. Fall Risk Secondary diagnosis (15 points) impaired mobility, IV access (20 points). Assessment: 07:15 General: Appears uncomfortable, ill, Behavior is anxious, fussy. Pain: Complains of tw2 pain in left upper quadrant and right upper quadrant and epigastric area. Neuro: Level of Consciousness is awake, alert, obeys commands, Oriented to person, place, situation. Cardiovascular: Heart tones S1 S2 Capillary refill is > 3 seconds is sluggish Patient's skin is warm and dry. Rhythm is sinus rhythm. Respiratory: Airway is patent Respiratory effort is even, unlabored, Respiratory pattern is regular, symmetrical, Breath sounds are clear bilaterally. GI: Abdomen is flat, Bowel sounds present X 4 quads. GI: Reports since yesterday morning tarry stools. : No signs and/or symptoms were reported regarding the genitourinary system. EENT: No signs and/or symptoms were reported regarding the EENT system. Derm: Skin is fragile, is thin, Skin is pale. Musculoskeletal: Range of motion: intact in all extremities. 07:25 Reassessment: pt states "i access my own port a cath at home and i put heparin in it tw2 too", dressing was wet at this time, site cleaned with chlorhexidine and new tegaderm dressing applied per PRITI Govea. 07:57 Reassessment: pt refusing blood draw from lab after one unsuccessful iv attempt, tw2 provider notified, medicated as ordered, pt states "after i get some pain medicine i will let them draw the blood". 08:06 Reassessment: Zosyn and Protonix NOT compatible per clinical pharmacology and per tw2 Roosevelt Bang in pharmacy, provider notified, provider at bedside attempted EJ at this time. 08:31 Reassessment: Patient and/or family updated on plan of care and expected duration. Pain tw2 level reassessed. Patient states feeling better. 09:08 Reassessment: No changes from previously documented assessment. tw2 09:50 Reassessment: SEE BLOOD TRANSFUSION RECORD. tw2 10:11 Reassessment: No changes from previously documented assessment. Patient and/or family tw2 updated on plan of care and expected duration. Pain level reassessed. See transfusion record, blood product checked off with - EMS. Vital Signs: 07:27 BP 89 / 54; Pulse 102; Resp 20; Temp 98.3(O); Pulse Ox 98% on R/A; Weight 50.8 kg (R); tw2 Height 0 ft. 1 in. (4 cm); Pain 8/10; 07:59 BP 86 / 54; Pulse 90; Resp 20; Pulse Ox 100% on R/A; tw2 08:29 BP 103 / 62; Pulse 79; Resp 12; Pulse Ox 100% on 2 lpm NC; tw2 09:07 BP 80 / 41; Pulse 83; Resp 16; Pulse Ox 100% on R/A; tw2 09:34 BP 102 / 61; Pulse 77; Resp 21; Pulse Ox 99% ; em1 10:05 BP 107 / 58; Pulse 80; Resp 13; Temp 97.8(TE); Pulse Ox 100% on 2 lpm NC; tw2 07:27 Body Mass Index 44062.47 (50.80 kg, 4 cm) tw2 07:59 provider notified. no further orders at this time. tw2 08:29 pt requested o2, pt was 99% on RA, pt placed on 2 L nc tw2 09:07 provider notified. tw2 ED Course: 07:12 Placed in gown. Bed in low position. Side rails up X 1. Adult w/ patient. Cardiac tw2 monitor on. Pulse ox on. NIBP on. Warm blanket given. 07:20 Patient arrived in ED. tw2 07:23 Stephen Winchester MD is Attending Physician. [facility] 07:26 Tona Frausto, PRITI is Primary Nurse. tw2 07:27 Arm band placed on. tw2 07:28 Triage completed. tw2 07:30 Missed attempt(s): 24 gauge in left forearm. per PRITI Govea. lab notified for need of tw2 blood draw. Bleeding controlled, band aid applied, catheter tip intact. 07:52 XRAY Chest (1 view) In Process Unspecified. EDMS 08:03 Oxygen administration via nasal cannula \\T\\ 2L/min. em1 08:10 Inserted saline lock: 18 gauge in left EJ, using aseptic technique. ,using aseptic tw2 technique. per Dr. Winchester Blood collected. 08:37 Notified ED physician of a critical lab result(s). HGB 6.1, HCT 17.8. hb 10:23 No provider procedures requiring assistance completed. Patient transferred, IV remains tw2 in place. Administered Medications: 07:40 Drug: NS 0.9% 1000 ml Route: IV; Rate: 1 bolus; Site: Port-a-cath; tw2 09:00 Follow up: IV Status: Completed infusion; IV Intake: 1000ml tw2 07:40 Drug: ProTONIX 80 mg Route: IVP; Site: Port-a-cath; tw2 08:05 Follow up: Response: No adverse reaction tw2 07:53 Drug: Zofran 4 mg Route: IVP; Site: Port-a-cath; tw2 10:00 Follow up: Response: No adverse reaction tw2 07:55 Drug: morphine 2 mg Route: IVP; Site: Port-a-cath; tw2 10:20 Follow up: Response: No adverse reaction tw2 07:56 Drug: ProTONIX 8 mg/hr Route: IV; Rate: 25 ml/hr; Site: Port-a-cath; tw2 10:11 Follow up: IV Status: Infusion continued upon transfer tw2 08:18 Not Given (Patient Refused): Zosyn 3.375 grams IVPB once over 60 mins; (mix in NS 100 tw2 mL) 09:07 Drug: NS 0.9% 1000 ml Route: IV; Rate: 1 bolus; Site: Port-a-cath; tw2 10:18 Follow up: Response: No adverse reaction; IV Status: Completed infusion; IV Intake: tw2 1000ml 09:40 Drug: Tylenol Suppository 650 mg {Note: Jim,Tech served as white goods appliance tech.} Route: MA; tw2 10:21 Follow up: Response: No adverse reaction tw2 09:40 Drug: hydrOXYzine 25 mg {Note: Right deltoid, IM available only from pharmacy.} Route: tw2 PO; 10:21 Follow up: Response: No adverse reaction tw2 09:45 Drug: NS 0.9% 1000 ml Route: IV; Rate: 125 ml/hr; Site: Port-a-cath; tw2 10:15 Drug: morphine 2 mg Route: IVP; Site: Port-a-cath; tw2 10:15 Follow up: Response: No adverse reaction tw2 10:22 Not Given (this was for use after blood products finished): NS 0.9% 500 ml IV at bolus tw2 once Point of Care Testing: Blood Glucose: 07:32 Blood Glucose: 332 mg/dL; tw2 07:32 per Roosevelt Fernandez tw2 Ranges: Intake: 09:00 IV: 1000ml; Total: 1000ml. tw2 10:18 IV: 1000ml; Total: 2000ml. tw2 Outcome: 08:35 ER care complete, transfer ordered by MD. cole 10:11 Transferred by ground EMS to [facility]. tw2 10:11 Condition: stable 10:11 Instructed on the need for transfer. 10:26 Patient left the ED. tw2 Signatures: Dispatcher [employer] EDStephen Ness MD MD cha Martinez, Jim em1 Talia Jim, RN RN Tona Frausto RN RN tw2 Corrections: (The following items were deleted from the chart) 07:48 07:30 Blood Glucose: Notes=per Roosevelt Fernandez, Blood Glucose Hsbyhgq=539 mg/dL. tw2 tw2
--- NOTE | 2018-05-15 08:36 | EDPHYS ---
Physician Documentation [facility] Name: Camden Soto Age: 62 yrs Sex: Male : 1955 Arrival Date: 05/15/2018 Time: 07:20 Bed 4 Private MD: ED Physician Stephen Winchester HPI: 05/15 07:58 This 62 yrs old Male presents to ER via EMS with complaints of Black/Tarry douglas Stools, Syncope. 07:58 The patient has experienced syncope, collapsed. Onset: The symptoms/episode douglas began/occurred just prior to arrival, this morning. Duration: This was a single episode, that lasted 15 second(s). Historical: - Allergies: 08:09 Codeine; tw2 - PMHx: 08:09 stage 4 pancreatic cancer; tw2 - PSHx: 08:09 Appendectomy; tw2 - Immunization history:: Adult Immunizations. - Social history:: Smoking status: . - Family history:: not pertinent. - Ebola Screening: : Patient denies travel to an Ebola-affected area in the 21 days before illness onset. ROS: 07:59 Constitutional: Negative for fever, chills, and weight loss, Eyes: Negative for injury, douglas pain, redness, and discharge, ENT: Negative for injury, pain, and discharge, Neck: Negative for injury, pain, and swelling, Cardiovascular: Negative for chest pain, palpitations, and edema, Respiratory: Negative for shortness of breath, cough, wheezing, and pleuritic chest pain, Back: Negative for injury and pain, : Negative for injury, bleeding, discharge, and swelling, MS/Extremity: Negative for injury and deformity, Neuro: Negative for headache, weakness, numbness, tingling, and seizure, Psych: Negative for depression, anxiety, suicide ideation, homicidal ideation, and hallucinations, Allergy/Immunology: Negative for hives, rash, and allergies, Endocrine: Negative for neck swelling, polydipsia, polyuria, polyphagia, and marked weight changes, Hematologic/Lymphatic: Negative for swollen nodes, abnormal bleeding, and unusual bruising. 07:59 Abdomen/GI: Positive for abdominal pain. Exam: 08:00 Constitutional: This is a well developed, well nourished patient who is awake, alert, douglas and in no acute distress. Head/Face: Normocephalic, atraumatic. Eyes: Pupils equal round and reactive to light, extra-ocular motions intact. Lids and lashes normal. Conjunctiva and sclera are non-icteric and not injected. Cornea within normal limits. Periorbital areas with no swelling, redness, or edema. ENT: Nares patent. No nasal discharge, no septal abnormalities noted. Tympanic membranes are normal and external auditory canals are clear. Oropharynx with no redness, swelling, or masses, exudates, or evidence of obstruction, uvula midline. Mucous membranes moist. Neck: Trachea midline, no thyromegaly or masses palpated, and no cervical lymphadenopathy. Supple, full range of motion without nuchal rigidity, or vertebral point tenderness. No Meningismus. Chest/axilla: Normal chest wall appearance and motion. Nontender with no deformity. No lesions are appreciated. Cardiovascular: Regular rate and rhythm with a normal S1 and S2. No gallops, murmurs, or rubs. Normal PMI, no JVD. No pulse deficits. Respiratory: Lungs have equal breath sounds bilaterally, clear to auscultation and percussion. No rales, rhonchi or wheezes noted. No increased work of breathing, no retractions or nasal flaring. MS/ Extremity: Pulses equal, no cyanosis. Neurovascular intact. Full, normal range of motion. Neuro: Awake and alert, GCS 15, oriented to person, place, time, and situation. Cranial nerves II-XII grossly intact. Motor strength 5/5 in all extremities. Sensory grossly intact. Cerebellar exam normal. Normal gait. Psych: Awake, alert, with orientation to person, place and time. Behavior, mood, and affect are within normal limits. 08:00 Abdomen/GI: Inspection: abdomen appears normal, Bowel sounds: normal, Palpation: moderate abdominal tenderness, in the epigastric area, right upper quadrant and left upper quadrant, Rectal exam: Stool: guaiac positive, black, Liver: no appreciated palpable abnormalities, Hernia: not appreciated. 08:00 Skin: Appearance: Color: pale. Vital Signs: 07:27 BP 89 / 54; Pulse 102; Resp 20; Temp 98.3(O); Pulse Ox 98% on R/A; Weight 50.8 kg (R); tw2 Height 0 ft. 1 in. (4 cm); Pain 8/10; 07:59 BP 86 / 54; Pulse 90; Resp 20; Pulse Ox 100% on R/A; tw2 08:29 BP 103 / 62; Pulse 79; Resp 12; Pulse Ox 100% on 2 lpm NC; tw2 09:07 BP 80 / 41; Pulse 83; Resp 16; Pulse Ox 100% on R/A; tw2 09:34 BP 102 / 61; Pulse 77; Resp 21; Pulse Ox 99% ; em1 10:05 BP 107 / 58; Pulse 80; Resp 13; Temp 97.8(TE); Pulse Ox 100% on 2 lpm NC; tw2 07:27 Body Mass Index 95667.47 (50.80 kg, 4 cm) tw2 07:59 provider notified. no further orders at this time. tw2 08:29 pt requested o2, pt was 99% on RA, pt placed on 2 L nc tw2 09:07 provider notified. tw2 Procedures: 08:18 Peripheral line: by aseptic technique a peripheral line was placed in the left external douglas jugular vein. MDM: 07:23 Patient medically screened. [facility] 08:02 Data reviewed: vital signs, nurses notes, lab test result(s), EKG, radiologic studies, [facility] CT scan, plain films. 05/15 07:25 Order name: Basic Metabolic Panel; Complete Time: 08:30 [facility] 05/15 07:25 Order name: CBC with Diff [facility] 05/15 07:25 Order name: LFT's; Complete Time: 08:30 [facility] 05/15 07:25 Order name: Magnesium; Complete Time: 08:30 [facility] 05/15 07:25 Order name: NT PRO-BNP; Complete Time: 08:30 [facility] 05/15 07:25 Order name: PT-INR; Complete Time: 08:46 [facility] 05/15 07:25 Order name: Troponin (emerg Dept Use Only); Complete Time: 08:30 [facility] 05/15 07:25 Order name: Lipase; Complete Time: 08:30 [facility] 05/15 07:25 Order name: Type And Screen [facility] 05/15 07:32 Order name: Glucose, Ancillary Testing; Complete Time: 08:30 EDMS 05/15 08:34 Order name: Manual Differential EDMS 05/15 08:40 Order name: Bb Add On bd 05/15 07:25 Order name: XRAY Chest (1 view); Complete Time: 08:30 [facility] 05/15 09:14 Order name: Packed RBCs (Additional Unit) EDMS 05/15 07:25 Order name: Cardiac monitoring; Complete Time: 07:29 [facility] 05/15 07:25 Order name: EKG - Nurse/Tech; Complete Time: 07:46 [facility] 05/15 07:25 Order name: IV Saline Lock; Complete Time: 10:22 [facility] 05/15 07:25 Order name: Labs collected and sent; Complete Time: 10:22 [facility] 05/15 07:25 Order name: O2 Per Protocol; Complete Time: 07:29 [facility] 05/15 07:25 Order name: O2 Sat Monitoring; Complete Time: 07:29 [facility] 05/15 08:35 Order name: Transfuse; Complete Time: 10:20 [facility] Administered Medications: 07:40 Drug: NS 0.9% 1000 ml Route: IV; Rate: 1 bolus; Site: Port-a-cath; tw2 09:00 Follow up: IV Status: Completed infusion; IV Intake: 1000ml tw2 07:40 Drug: ProTONIX 80 mg Route: IVP; Site: Port-a-cath; tw2 08:05 Follow up: Response: No adverse reaction tw2 07:53 Drug: Zofran 4 mg Route: IVP; Site: Port-a-cath; tw2 10:00 Follow up: Response: No adverse reaction tw2 07:55 Drug: morphine 2 mg Route: IVP; Site: Port-a-cath; tw2 10:20 Follow up: Response: No adverse reaction tw2 07:56 Drug: ProTONIX 8 mg/hr Route: IV; Rate: 25 ml/hr; Site: Port-a-cath; tw2 10:11 Follow up: IV Status: Infusion continued upon transfer tw2 08:18 Not Given (Patient Refused): Zosyn 3.375 grams IVPB once over 60 mins; (mix in NS 100 tw2 mL) 09:07 Drug: NS 0.9% 1000 ml Route: IV; Rate: 1 bolus; Site: Port-a-cath; tw2 10:18 Follow up: Response: No adverse reaction; IV Status: Completed infusion; IV Intake: tw2 1000ml 09:40 Drug: Tylenol Suppository 650 mg {Note: 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,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.} Route: MO; tw2 10:21 Follow up: Response: No adverse reaction tw2 09:40 Drug: hydrOXYzine 25 mg {Note: Right deltoid, IM available only from pharmacy.} Route: tw2 PO; 10:21 Follow up: Response: No adverse reaction tw2 09:45 Drug: NS 0.9% 1000 ml Route: IV; Rate: 125 ml/hr; Site: Port-a-cath; tw2 10:15 Drug: morphine 2 mg Route: IVP; Site: Port-a-cath; tw2 10:15 Follow up: Response: No adverse reaction tw2 10:22 Not Given (this was for use after blood products finished): NS 0.9% 500 ml IV at bolus tw2 once Point of Care Testing: Blood Glucose: 07:32 Blood Glucose: 332 mg/dL; tw2 07:32 per Roosevelt Fernandez tw2 Ranges: Critical Glucose Levels:Adult <50 mg/dl or >400 mg/dl <40 mg/dl or >180 mg/dl Disposition: 05/15/18 08:35 Transfer ordered to [facility]. Diagnosis are Abdominal tenderness, Gastrointestinal hemorrhage, unspecified, Anemia, unspecified, Hypotension. - Reason for transfer: Higher level of care. - Accepting physician is to icu,sabianism. - Condition is Serious. - Problem is new. - Symptoms are unchanged. Signatures: Dispatcher [employer] EDCT Stephen Winchester MD MD cha Wise, Tara RN RN tw2 Corrections: (The following items were deleted from the chart) 08:18 07:59 Abdomen Pelvis W Con+CT.RAD.BRZ ordered. [facility] EDCT 08:41 08:18 Chest Abdomen Pelvis W Cont ordered. [facility] EDCT 09:10 08:20 Chest Abdomen Pelvis W Con+CT.RAD.BRZ ordered. [facility] 10:26 08:35 05/15/2018 08:35 Transfer ordered to [facility]. Diagnosis is tw2 Abdominal tenderness; Gastrointestinal hemorrhage, unspecified; Anemia, unspecified; Hypotension. Reason for transfer: Higher level of care. Accepting physician is to icu,sabianism. Condition is Serious. Problem is new. Symptoms are unchanged. douglas
[2018-05-15] MEDS ORDERED: PANTOPRAZOLE INJ 80 MG in NA CHLORIDE 0.9% 250 ML IV ONE (08:45)
[2018-05-15 08:48] LABS: Anisocytosis 1+; Blood Morphology Comment NOTED (NOT SEEN); Burr Cells 1+; Hypochromasia 2+; Platelet Estimate ADEQ; Polychromasia 1+
[2018-05-15] MEDS ORDERED: NA CHLORIDE 0.9% 500 ML ONE (09:11)
[2018-05-15] MEDS ORDERED: ACETAMINOPHEN 325 MG TABLET ONE (09:37)
[2018-05-15] MEDS ORDERED: hydrOXYzine HCl 50 MG/ML VIAL IM ONE (09:41)
[2018-05-15] MEDS ORDERED: ACETAMINOPHEN 650MG/RECT SUPP PR ONE (09:41)
== END 2018-05-15 10:26 | disposition short-term general hospital (02) ==
LOC: ER 07:19
PROC: 05HQ33Z Insertion of Infusion Device into Left External Jugular Vein, Percutaneous Approach (ICD-10-PCS; principal; 2018-05-15)
PROC: 30233N1 Transfusion of Nonautologous Red Blood Cells into Peripheral Vein, Percutaneous Approach (ICD-10-PCS; 2018-05-15)
DX: K92.2 Gastrointestinal hemorrhage, unspecified (principal); D64.9 Anemia, unspecified; I95.9 Hypotension, unspecified; Z85.07 Personal history of malignant neoplasm of pancreas; Z88.5 Allergy status to narcotic agent
CPT/HCPCS: 36415; 71045; 80048; 80076; 82962; 83690; 83735; 83880; 84484; 85025; 85610; 86850; 86900; 86901; 96365; 96366; 96375; 99285; C9113; J2405; J2543; J3410; J7030; P9016

== ENCOUNTER 2018-12-28 19:43 | Inpatient (IN) | payer BC, OTHER ==
--- OUTSIDE RECORDS SUMMARY | 2018-12-28 19:56 | XMS REPORT | Clinical Summary ---
:1955 Author Organization [facility] Address [address] [place] [address] Care Team Providers Name Role Phone Umesh Araujo MD Primary Care Provider Allergies Active Allergy Reactions Severity Noted Date Comments Codeine GI Intolerance Medium 10/19/2017 Medications Medication Sig Dispensed Refills Start Date End Date Status 5-hydroxytryptophan, Take by mouth. 0 Discontinued 5-HTP, (5-HTP ORAL) Take 1 9 tablet/capsule twice daily omeprazole Take 1 capsule 60 capsule 0 05/11/2018 (PriLOSEC) 20 MG (20 mg total) 8 capsule by mouth 2 (two) times a day for 30 days. fluconazole Take 1 tablet 0 07/26/2018 Discontinued (DIFLUCAN) 100 MG by mouth 2 9 tablet (two) times a day. 3 days of therapy left ondansetron ODT Take 1 tablet 30 tablet 0 08/17/2018 Discontinued (ZOFRAN-ODT) 4 MG via PEG tube 9 disintegrating as needed for tablet nausea ever 6 hours keTOROlac (TORadol) Take 1 tablet 20 tablet 0 08/17/2018 10 mg tablet (10 mg total) 9 by mouth every 6 (six) hours as needed for moderate pain for up to 5 days. Hospital, Clinic, or Ordered Dose Route Frequency Start Date End Date Status Other Facility Administered Medication keTOROlac (TORadol) 10 mg oral every 6 hours PRN 08/17/2018 08/22/2018 Ended tablet 10 mg Active Problems Problem Noted Date Acute postoperative pain 12/17/2018 Colonic obstruction 12/17/2018 Pancytopenia 12/17/2018 Malignant neoplasm of pancreas 12/15/2018 Complete intestinal obstruction 12/15/2018 Overview: Added automatically from request for surgery [id number] Claire infection, oral 08/13/2018 Other dysphagia 08/12/2018 Primary pancreatic cancer 05/08/2018 Esophageal dysphagia 05/08/2018 Anemia associated with acute blood loss 05/08/2018 Pancreatic adenocarcinoma 05/08/2018 Upper GI bleed 05/07/2018 Melena 05/07/2018 Overview: Added automatically from request for surgery [id number] Gastric mass 10/13/2017 Encounters Date Type Specialty Care Team Description 12/18/19 Anesthesia Surgical Intensive Anitha Sarabia Event David Carlisle MD 12/17/19 Surgery General Surgery [place], EXPLORATORY LAPAROTOMY, 19 Zak Traore MD SUBTOTAL COLECTOMY 12/17/19 Anesthesia General Surgery Anitha Sarabia Event MD Maylin 12/16/19 [facility] Surgery Jayden Melissa, Malignant neoplasm of pancreas, unspecified location of malignancy (HCC) (Primary Dx); 19 - Encounter Complete intestinal obstruction, unspecified cause (HCC); 12/29/19 Jones Walker Anemia, unspecified type; Gina Rawls MD Hypokalemia; Acute vomiting; Intestinal obstruction (HCC) 11/02/19 Lab Lab Lyle Watt 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 (HCC) (Primary Dx) 11/02/19 Transcribe Access Lyle Watt Malignant neoplasm of head of 19 Adele Cota MD pancreas (HCC) (Primary Dx) 08/15/19 Surgery Gastroenterology Lyle Watt INSERTION OR REMOVAL PEG Gina Cota MD 08/15/19 Anesthesia Gastroenterology Payal, 19 Event Shelley Persaud NP 08/12/19 [facility] Internal Benny Olivia Other dysphagia (Primary Dx ); 19 - Encounter Annabelle Madrid MD Malignant neoplasm of pancreas, unspecified location of malignancy (HCC); 08/17/19 [place], Dehydration; Gina Rodriguez MD Esophageal dysphagia; Primary pancreatic cancer (HCC); Gastric mass 05/15/20 Intake Access N/A 18 05/11/20 Patient Quality Rayo Hopper RN 05/08/20 Anesthesia Gastroenterology Cory Dsouza 18 Event MD Karl 05/08/20 Surgery Gastroenterology Lyle Watt ESOPHAGOGASTRODUODENOSCOPY Rayo Cota MD (EGD) 05/07/20 [facility] General Internal LeonardoJennifer Schwab (Primary Dx); 18 - Encounter Medicine Krystal Zavala, Acute blood loss anemia; 05/11/20 Pancreatic adenocarcinoma (HCC) 18 Jennifer Ray MD Force, Christopher Ryan, MD 05/07/20 Intake Access N/A 18 04/26/20 [facility] Radiology Lyle Watt Dysphagia, unspecified type 18 Encounter MD Cipriano 04/21/20 Transcribe Access Lyle Watt Dysphagia, unspecified type 18 Orders MD Cipriano (Primary Dx) 02/22/20 Lab Lab Jon Hercules MD after 12/27/2017 Social History Tobacco Use Types Packs/Day Years Used Date Never Smoker Smokeless Tobacco: Never Used Alcohol Use Drinks/Week oz/Week Comments No Sex Assigned at Date Recorded Not on file Job Start Date Occupation Industry Not on file Not on file Not on file Travel History Travel Start Travel End No recent travel history available. Last Filed Vital Signs Vital Sign Reading Time Taken Blood Pressure 101/54 12/28/2018 4:23 PM CDT Pulse 111 12/28/2018 4:23 PM CDT Temperature 35.3 C (95.5 F) 12/28/2018 4:23 PM CDT Respiratory Rate 8 12/28/2018 4:23 PM CDT Oxygen Saturation 86% 12/28/2018 4:23 PM CDT Inhaled Oxygen Concentration - - Weight 47.1 kg (103 lb 12.8 oz) 12/15/2018 10:51 PM CDT Height 162.6 cm (5' 4") 12/15/2018 1:39 PM CDT Body Mass Index 17.82 12/15/2018 1:39 PM CDT Plan of Treatment Health Maintenance Due Date Last Done Comments COLON CANCER SCREENING 2004 SHINGLES VACCINES (#1) 2004 INFLUENZA VACCINE 03/01/2019 Implants Implanted Type Area Microwave Oven Assembler Device Shelf Model / Identifier Expiration Serial / Date Lot Port Imlpntbl Smart Port W/ Dtchd 0.4ml 6.6fr 55cm 1.4x2.2mm - [id number] Implantable N/A: ANGIODYNAMICS 2020 [id number] / Implanted: 10/19/2017 (Quantity not on file) Infusion Ports N/A INC / or Accessories [id number] Port Imlpntbl Smart Port W/ Dtchd 0.4ml 6.6fr 55cm W/ Sheath - [id number] Implantable N/A: ANGIODYNAMICS 03/31/2021 [id number] / Implanted: 08/17/2018 (Quantity not on file) Infusion Ports N/A INC / or Accessories [id number] Plate Plate Neck Procedures Procedure Name Priority Date/Time Associated Comments Diagnosis MANUAL DIFFERENTIAL Routine 12/28/2018 4:40 Results for this AM CDT procedure are in the results section. CBC WITH PLATELET AND Routine 12/28/2018 4:40 Results for this DIFFERENTIAL AM CDT procedure are in the results section. ESTIMATED GFR Routine 12/28/2018 4:00 Results for this AM CDT procedure are in the results section. PHOSPHORUS LEVEL Routine 12/28/2018 4:00 Results for this AM CDT procedure are in the results section. MAGNESIUM LEVEL Routine 12/28/2018 4:00 Results for this AM CDT procedure are in the results section. BASIC METABOLIC PANEL Routine 12/28/2018 4:00 Results for this AM CDT procedure are in the results section. HC COMPLETE BLD COUNT Routine 12/27/2018 8:15 Results for this W/AUTO DIFF AM CDT procedure are in the results section. PHOSPHORUS LEVEL Routine 12/27/2018 7:20 Results for this AM CDT procedure are in the results section. MAGNESIUM LEVEL Routine 12/27/2018 7:20 Results for this AM CDT procedure are in the results section. ESTIMATED GFR Routine 12/27/2018 7:19 Results for this AM CDT procedure are in the results section. BASIC METABOLIC PANEL Routine 12/27/2018 7:19 Results for this AM CDT procedure are in the results section. ESTIMATED GFR Routine 12/27/2018 6:00 Results for this AM CDT procedure are in the results section. PHOSPHORUS LEVEL Routine 12/27/2018 6:00 Results for this AM CDT procedure are in the results section. MAGNESIUM LEVEL Routine 12/27/2018 6:00 Results for this AM CDT procedure are in the results section. CBC WITH PLATELET AND Routine 12/27/2018 6:00 Results for this DIFFERENTIAL AM CDT procedure are in the results section. BASIC METABOLIC PANEL Routine 12/27/2018 6:00 Results for this AM CDT procedure are in the results section. POC GLUCOSE Routine 12/26/2018 7:39 Results for this PM CDT procedure are in the results section. POC GLUCOSE Routine 12/26/2018 3:53 Results for this PM CDT procedure are in the results section. POC GLUCOSE Routine 12/26/2018 12:24 Results for this PM CDT procedure are in the results section. POC GLUCOSE Routine 12/26/2018 9:56 Results for this AM CDT procedure are in the results section. ESTIMATED GFR Routine 12/26/2018 6:20 Results for this AM CDT procedure are in the results section. PHOSPHORUS LEVEL Routine 12/26/2018 6:20 Results for this AM CDT procedure are in the results section. MAGNESIUM LEVEL Routine 12/26/2018 6:20 Results for this AM CDT procedure are in the results section. HC COMPLETE BLD COUNT Routine 12/26/2018 6:20 Results for this W/AUTO DIFF AM CDT procedure are in the results section. BASIC METABOLIC PANEL Routine 12/26/2018 6:20 Results for this AM CDT procedure are in the results section. POC GLUCOSE Routine 12/26/2018 4:04 Results for this AM CDT procedure are in the results section. POC GLUCOSE Routine 12/25/2018 10:06 Results for this PM CDT procedure are in the results section. HC COMPLETE BLD COUNT STAT 12/25/2018 7:20 Results for this W/AUTO DIFF AM CDT procedure are in the results section. ESTIMATED GFR STAT 12/25/2018 7:06 Results for this AM CDT procedure are in the results section. PHOSPHORUS LEVEL STAT 12/25/2018 7:06 Results for this AM CDT procedure are in the results section. MAGNESIUM LEVEL STAT 12/25/2018 7:06 Results for this AM CDT procedure are in the results section. BASIC METABOLIC PANEL STAT 12/25/2018 7:06 Results for this AM CDT procedure are in the results section. POC GLUCOSE Routine 12/25/2018 5:12 Results for this AM CDT procedure are in the results section. POC GLUCOSE Routine 12/24/2018 11:36 Results for this AM CDT procedure are in the results section. POC GLUCOSE Routine 12/24/2018 7:41 Results for this AM CDT procedure are in the results section. CT ABDOMEN PELVIS W STAT 12/24/2018 6:47 Results for this CONTRAST AM CDT procedure are in the results section. HC COMPLETE BLD COUNT Routine 12/24/2018 4:20 Results for this W/AUTO DIFF AM CDT procedure are in the results section. COMPREHENSIVE METABOLIC Routine 12/24/2018 4:00 Results for this PANEL AM CDT procedure are in the results section. ESTIMATED GFR Routine 12/24/2018 4:00 Results for this AM CDT procedure are in the results section. PHOSPHORUS LEVEL Routine 12/24/2018 4:00 Results for this AM CDT procedure are in the results section. MAGNESIUM LEVEL Routine 12/24/2018 4:00 Results for this AM CDT procedure are in the results section. XR ABDOMEN 1 VW STAT 12/24/2018 3:08 Results for this AM CDT procedure are in the results section. LACTIC ACID LEVEL, Timed 12/24/2018 2:44 Results for this SEPSIS - NOW AND REPEAT AM CDT procedure are in 2X EVERY 3 HOURS the results section. LACTIC ACID LEVEL STAT 12/24/2018 1:06 Results for this AM CDT procedure are in the results section. POC GLUCOSE Routine 12/24/2018 12:25 Results for this AM CDT procedure are in the results section. POC GLUCOSE Routine 12/23/2018 7:53 Results for this PM CDT procedure are in the results section. ESTIMATED GFR Routine 12/23/2018 4:00 Results for this AM CDT procedure are in the results section. PHOSPHORUS LEVEL Routine 12/23/2018 4:00 Results for this AM CDT procedure are in the results section. MAGNESIUM LEVEL Routine 12/23/2018 4:00 Results for this AM CDT procedure are in the results section. HC COMPLETE BLD COUNT Routine 12/23/2018 4:00 Results for this W/AUTO DIFF AM CDT procedure are in the results section. BASIC METABOLIC PANEL Routine 12/23/2018 4:00 Results for this AM CDT procedure are in the results section. POC GLUCOSE Routine 12/23/2018 12:22 Results for this AM CDT procedure are in the results section. POC GLUCOSE Routine 12/22/2018 8:13 Results for this PM CDT procedure are in the results section. CYTOLOGY Routine 12/22/2018 12:22 Results for this (NON-GYNECOLOGICAL) PM CDT procedure are in REQUEST the results section. CYTOLOGY Routine 12/22/2018 12:22 Results for this (NON-GYNECOLOGICAL) PM CDT procedure are in REQUEST the results section. US ABDOMINAL Routine 12/22/2018 11:36 Results for this PARACENTESIS IMAGING AM CDT procedure are in the results section. ALBUMIN, MISC FLUID Routine 12/22/2018 11:24 Results for this AM CDT procedure are in the results section. CELL COUNT AND Routine 12/22/2018 11:24 Results for this DIFFERENTIAL, BODY AM CDT procedure are in FLUID the results section. PROTEIN, MISC FLUID Routine 12/22/2018 11:24 Results for this AM CDT procedure are in the results section. LDH, MISC FLUID Routine 12/22/2018 11:24 Results for this AM CDT procedure are in the results section. FUNGUS SMEAR Routine 12/22/2018 11:24 Results for this AM CDT procedure are in the results section. GRAM STAIN Routine 12/22/2018 11:24 Results for this AM CDT procedure are in the results section. FUNGUS CULTURE Routine 12/22/2018 11:24 AM CDT ANAEROBIC CULTURE Routine 12/22/2018 11:24 Results for this AM CDT procedure are in the results section. AEROBIC CULTURE Routine 12/22/2018 11:24 Results for this AM CDT procedure are in the results section. ESTIMATED GFR Routine 12/22/2018 5:47 Results for this AM CDT procedure are in the results section. PHOSPHORUS LEVEL Routine 12/22/2018 5:47 Results for this AM CDT procedure are in the results section. MAGNESIUM LEVEL Routine 12/22/2018 5:47 Results for this AM CDT procedure are in the results section. HC COMPLETE BLD COUNT Routine 12/22/2018 5:47 Results for this W/AUTO DIFF AM CDT procedure are in the results section. BASIC METABOLIC PANEL Routine 12/22/2018 5:47 Results for this AM CDT procedure are in the results section. PARTIAL THROMBOPLASTIN Routine 12/22/2018 5:47 Results for this TIME (PTT) AM CDT procedure are in the results section. PROTHROMBIN TIME WITH Routine 12/22/2018 5:47 Results for this INR AM CDT procedure are in the results section. POC GLUCOSE Routine 12/22/2018 5:45 Results for this AM CDT procedure are in the results section. POC GLUCOSE Routine 12/21/2018 11:45 Results for this PM CDT procedure are in the results section. POC GLUCOSE Routine 12/21/2018 9:20 Results for this PM CDT procedure are in the results section. US SCROTAL Routine 12/21/2018 6:14 Results for this PM CDT procedure are in the results section. POC GLUCOSE Routine 12/21/2018 4:19 Results for this PM CDT procedure are in the results section. POC GLUCOSE Routine 12/21/2018 12:43 Results for this PM CDT procedure are in the results section. CT ABDOMEN PELVIS W STAT 12/21/2018 11:15 Results for this CONTRAST AM CDT procedure are in the results section. POC GLUCOSE Routine 12/21/2018 8:48 Results for this AM CDT procedure are in the results section. ESTIMATED GFR Routine 12/21/2018 5:00 Results for this AM CDT procedure are in the results section. PHOSPHORUS LEVEL Routine 12/21/2018 5:00 Results for this AM CDT procedure are in the results section. MAGNESIUM LEVEL Routine 12/21/2018 5:00 Results for this AM CDT procedure are in the results section. HC COMPLETE BLD COUNT Routine 12/21/2018 5:00 Results for this W/AUTO DIFF AM CDT procedure are in the results section. BASIC METABOLIC PANEL Routine 12/21/2018 5:00 Results for this AM CDT procedure are in the results section. POC GLUCOSE Routine 12/21/2018 4:45 Results for this AM CDT procedure are in the results section. POC GLUCOSE Routine 12/21/2018 12:15 Results for this AM CDT procedure are in the results section. POC GLUCOSE Routine 12/20/2018 10:01 Results for this PM CDT procedure are in the results section. POC GLUCOSE Routine 12/20/2018 5:06 Results for this PM CDT procedure are in the results section. POC GLUCOSE Routine 12/20/2018 12:57 Results for this PM CDT procedure are in the results section. POC GLUCOSE Routine 12/20/2018 7:33 Results for this AM CDT procedure are in the results section. POC GLUCOSE Routine 12/20/2018 5:11 Results for this AM CDT procedure are in the results section. HC COMPLETE BLD COUNT Routine 12/20/2018 5:10 Results for this W/AUTO DIFF AM CDT procedure are in the results section. ESTIMATED GFR Routine 12/20/2018 4:00 Results for this AM CDT procedure are in the results section. PHOSPHORUS LEVEL Routine 12/20/2018 4:00 Results for this AM CDT procedure are in the results section. MAGNESIUM LEVEL Routine 12/20/2018 4:00 Results for this AM CDT procedure are in the results section. BASIC METABOLIC PANEL Routine 12/20/2018 4:00 Results for this AM CDT procedure are in the results section. POC GLUCOSE Routine 12/19/2018 11:41 Results for this PM CDT procedure are in the results section. POC GLUCOSE Routine 12/19/2018 8:17 Results for this PM CDT procedure are in the results section. POC GLUCOSE Routine 12/19/2018 4:32 Results for this PM CDT procedure are in the results section. POC GLUCOSE Routine 12/19/2018 12:12 Results for this PM CDT procedure are in the results section. POC GLUCOSE Routine 12/19/2018 8:01 Results for this AM CDT procedure are in the results section. XR ABDOMEN 1 VW STAT 12/19/2018 6:23 Results for this PORTABLE AM CDT procedure are in the results section. ESTIMATED GFR Routine 12/19/2018 4:00 Results for this AM CDT procedure are in the results section. PHOSPHORUS LEVEL Routine 12/19/2018 4:00 Results for this AM CDT procedure are in the results section. MAGNESIUM LEVEL Routine 12/19/2018 4:00 Results for this AM CDT procedure are in the results section. HC COMPLETE BLD COUNT Routine 12/19/2018 4:00 Results for this W/AUTO DIFF AM CDT procedure are in the results section. BASIC METABOLIC PANEL Routine 12/19/2018 4:00 Results for this AM CDT procedure are in the results section. POC GLUCOSE Routine 12/19/2018 3:33 Results for this AM CDT procedure are in the results section. POC GLUCOSE Routine 12/18/2018 11:05 Results for this PM CDT procedure are in the results section. POC GLUCOSE Routine 12/18/2018 9:02 Results for this PM CDT procedure are in the results section. POC GLUCOSE Routine 12/18/2018 4:30 Results for this PM CDT procedure are in the results section. HEMOGLOBIN & HEMATOCRIT Routine 12/18/2018 12:30 Results for this PM CDT procedure are in the results section. POC GLUCOSE Routine 12/18/2018 12:17 Results for this PM CDT procedure are in the results section. POC GLUCOSE Routine 12/18/2018 11:20 Results for this AM CDT procedure are in the results section. POC GLUCOSE Routine 12/18/2018 7:07 Results for this AM CDT procedure are in the results section. POC GLUCOSE Routine 12/18/2018 5:05 Results for this AM CDT procedure are in the results section. POC GLUCOSE Routine 12/18/2018 1:32 Results for this AM CDT procedure are in the results section. SMEAR REVIEW Routine 12/18/2018 12:25 Results for this AM CDT procedure are in the results section. ESTIMATED GFR Routine 12/18/2018 12:25 Results for this AM CDT procedure are in the results section. HEPATIC FUNCTION PANEL Routine 12/18/2018 12:25 Results for this AM CDT procedure are in the results section. IONIZED CALCIUM Routine 12/18/2018 12:25 Results for this AM CDT procedure are in the results section. PROTHROMBIN TIME WITH Routine 12/18/2018 12:25 Results for this INR AM CDT procedure are in the results section. PARTIAL THROMBOPLASTIN Routine 12/18/2018 12:25 Results for this TIME (PTT) AM CDT procedure are in the results section. PHOSPHORUS LEVEL Routine 12/18/2018 12:25 Results for this AM CDT procedure are in the results section. MAGNESIUM LEVEL Routine 12/18/2018 12:25 Results for this AM CDT procedure are in the results section. HC COMPLETE BLD COUNT Routine 12/18/2018 12:25 Results for this W/AUTO DIFF AM CDT procedure are in the results section. BASIC METABOLIC PANEL Routine 12/18/2018 12:25 Results for this AM CDT procedure are in the results section. POC GLUCOSE Routine 12/17/2018 8:26 Results for this PM CDT procedure are in the results section. POC GLUCOSE Routine 12/17/2018 3:45 Results for this PM CDT procedure are in the results section. MANUAL DIFFERENTIAL STAT 12/17/2018 1:22 Results for this PM CDT procedure are in the results section. PROTHROMBIN TIME WITH STAT 12/17/2018 1:22 Results for this INR PM CDT procedure are in the results section. PARTIAL THROMBOPLASTIN STAT 12/17/2018 1:22 Results for this TIME (PTT) PM CDT procedure are in the results section. CBC WITH PLATELET AND STAT 12/17/2018 1:22 Results for this DIFFERENTIAL PM CDT procedure are in the results section. POC GLUCOSE Routine 12/17/2018 11:56 Results for this AM CDT procedure are in the results section. SURGICAL PATHOLOGY Routine 12/17/2018 8:36 Results for this REQUEST AM CDT procedure are in the results section. POC GLUCOSE Routine 12/17/2018 8:05 Results for this AM CDT procedure are in the results section. XR ABDOMEN 1 VW STAT 12/17/2018 5:43 Results for this PORTABLE AM CDT procedure are in the results section. POC GLUCOSE Routine 12/17/2018 4:43 Results for this AM CDT procedure are in the results section. HC COMPLETE BLD COUNT Routine 12/17/2018 3:15 Results for this W/AUTO DIFF AM CDT procedure are in the results section. FIBRINOGEN STAT 12/17/2018 2:20 Results for this AM CDT procedure are in the results section. ESTIMATED GFR STAT 12/17/2018 2:20 Results for this AM CDT procedure are in the results section. PROTHROMBIN TIME WITH STAT 12/17/2018 2:20 Results for this INR AM CDT procedure are in the results section. PARTIAL THROMBOPLASTIN STAT 12/17/2018 2:20 Results for this TIME (PTT) AM CDT procedure are in the results section. CBC WITH PLATELET AND STAT 12/17/2018 2:20 Results for this DIFFERENTIAL AM CDT procedure are in the results section. PHOSPHORUS LEVEL STAT 12/17/2018 2:20 Results for this AM CDT procedure are in the results section. LACTIC ACID LEVEL STAT 12/17/2018 2:20 Results for this AM CDT procedure are in the results section. MAGNESIUM LEVEL STAT 12/17/2018 2:20 Results for this AM CDT procedure are in the results section. BASIC METABOLIC PANEL STAT 12/17/2018 2:20 Results for this AM CDT procedure are in the results section. IONIZED CALCIUM STAT 12/17/2018 2:20 Results for this AM CDT procedure are in the results section. URINALYSIS, AUTOMATED Routine 12/17/2018 2:20 Results for this WITH MICROSCOPY AM CDT procedure are in the results section. POC GLUCOSE Routine 12/17/2018 2:19 Results for this AM CDT procedure are in the results section. CONSULT TO OSTOMY CARE Routine 12/17/2018 1:42 NURSE AM CDT MAGNESIUM LEVEL STAT 12/16/2018 11:32 Results for this PM CDT procedure are in the results section. GLUCOSE LEVEL, SYRINGE STAT 12/16/2018 11:32 Results for this PM CDT procedure are in the results section. IONIZED CALCIUM, STAT 12/16/2018 11:32 Results for this ARTERIAL PM CDT procedure are in the results section. HEMOGLOBIN, SYRINGE STAT 12/16/2018 11:32 Results for this PM CDT procedure are in the results section. SODIUM LEVEL, SYRINGE STAT 12/16/2018 11:32 Results for this PM CDT procedure are in the results section. POTASSIUM, SYRINGE STAT 12/16/2018 11:32 Results for this PM CDT procedure are in the results section. ARTERIAL BLOOD GAS, STAT 12/16/2018 11:32 Results for this CORRECTED PM CDT procedure are in the results section. ARTERIAL LINE Routine 12/16/2018 10:34 PM CDT Procedure Note - Anitha Sarabia MD - 12/16/2018 10:34 PM CDT Arterial line Performed by: Anitha Sarabia MD Authorized by: Anitha Sarabia MD Patient Location: OR Start Time: 12/16/2018 10:10 PM End Time: 12/16/2018 10:12 PM Staff: Anesthesiologist: Anitha Sarabia MD Performed by: Anesthesiologist Pre-procedure: patient identified, IV checked, site and side verified, risks and benefits discussed, procedure verified, surgical consent complete, patient position confirmed, monitors and equipment checked and pre-op evaluation complete MSBT: antiseptic used, all elements of maximal sterile barrier technique followed and hand hygiene performed TIme Out Performed: 12/16/2018 10:10 PM Indications: Indications: hemodynamic monitoring Anesthesia: Anesthesia: General Procedure Details: Arterial Line placement: Placed post induction Line placement site: Radial Line placement side: Right Arterial line gauge: 20 G Number of attempts: 1 Ultrasound guidance used: No Post-procedure: Post-procedure: Sterile dressing applied Post procedure circulation, sensation, movement: Normal and unchanged Patient tolerance: Patient tolerated the procedure well with no immediate complications MN AN ELECTIVE ENDOTRACHEAL AIRWAY Routine 12/16/2018 10:31 PM CDT Procedure Note - Anitha Sarabia MD - 12/16/2018 10:31 PM CDT Airway Date/Time: 12/16/2018 10:06 PM Performed by: Anitha Sarabia MD Authorized by: Anitha Sarabia MD Location: OR Urgency: Elective Difficult Airway: No Preoxygenated with 100% O2: Yes C-spine Precautions Maintained Throughout: Yes Mask Ventilation: Easy mask Final Airway Type: Endotracheal airway Final Endotracheal Airway: ETT Cuffed: Yes Technique Used: Direct laryngoscopy Devices/Methods Used in Placement: Intubating stylet Insertion Site: Oral Blade Type: Cho Laryngoscope Blade/Videolaryngoscope Blade Size: 2 ETT Size (mm): 8.0 Cuff at minimum occlusion pressure: Yes Measured from: Teeth ETT to Teeth (cm): 22 Placement Verified by: CO2 detection, direct visualization and equal breath sounds Laryngoscopic view: Grade IIa - partial view of glottis Modified RSI: Yes Number of Attempts at Approach: 1 ILEOSTOMY 12/16/2018 10:00 . PM CDT LAPAROTOMY, EXPLORATORY 12/16/2018 10:00 . PM CDT PREPARE RBC STAT 12/16/2018 9:40 Results for PM CDT this procedure are in the results section. PREPARE FRESH FROZEN PLASMA STAT 12/16/2018 9:40 Results for PM CDT this procedure are in the results section. PREPARE RBC STAT 12/16/2018 9:40 Results for PM CDT this procedure are in the results section. TYPE AND SCREEN STAT 12/16/2018 9:40 Results for PM CDT this procedure are in the results section. ESTIMATED GFR STAT 12/16/2018 8:20 Results for PM CDT this procedure are in the results section. LACTIC ACID LEVEL, SEPSIS - NOW Timed 12/16/2018 8:20 Results for AND REPEAT 2X EVERY 3 HOURS PM CDT this procedure are in the results section. PARTIAL THROMBOPLASTIN TIME STAT 12/16/2018 8:20 Results for (PTT) PM CDT this procedure are in the results section. PROTHROMBIN TIME WITH INR STAT 12/16/2018 8:20 Results for PM CDT this procedure are in the results section. COMPREHENSIVE METABOLIC PANEL STAT 12/16/2018 8:20 Results for PM CDT this procedure are in the results section. HC COMPLETE BLD COUNT W/AUTO STAT 12/16/2018 8:20 Results for DIFF PM CDT this procedure are in the results section. CT ABDOMEN PELVIS W CONTRAST STAT 12/16/2018 6:59 Results for PM CDT this procedure are in the results section. POC GLUCOSE Routine 12/16/2018 5:40 Results for PM CDT this procedure are in the results section. URINALYSIS SCREEN AND Routine 12/16/2018 6:39 Results for MICROSCOPY, WITH REFLEX TO AM CDT this procedure CULTURE are in the results section. URINE CULTURE Routine 12/16/2018 6:30 Results for AM CDT this procedure are in the results section. ESTIMATED GFR Routine 12/16/2018 3:31 Results for AM CDT this procedure are in the results section. HC COMPLETE BLD COUNT W/AUTO Routine 12/16/2018 3:31 Results for DIFF AM CDT this procedure are in the results section. BASIC METABOLIC PANEL Routine 12/16/2018 3:31 Results for AM CDT this procedure are in the results section. VARICELLA ZOSTER BY PCR Routine 12/16/2018 3:31 Results for AM CDT this procedure are in the results section. CANCER ANTIGEN 19-9 Routine 12/16/2018 3:31 Results for AM CDT this procedure are in the results section. ANAEROBIC CULTURE Routine 12/16/2018 2:30 Results for AM CDT this procedure are in the results section. GRAM STAIN Routine 12/16/2018 2:30 Results for AM CDT this procedure are in the results section. AEROBIC CULTURE Routine 12/16/2018 2:30 Results for AM CDT this procedure are in the results section. CT ABDOMEN PELVIS W CONTRAST STAT 12/15/2018 3:57 Results for PM CDT this procedure are in the results section. ECG 12-LEAD STAT 12/15/2018 3:29 Results for PM CDT this procedure are in the results section. ESTIMATED GFR STAT 12/15/2018 2:39 Results for PM CDT this procedure are in the results section. AMYLASE LEVEL STAT 12/15/2018 2:39 Results for PM CDT this procedure are in the results section. LIPASE LEVEL STAT 12/15/2018 2:39 Results for PM CDT this procedure are in the results section. B NATRIURETIC PEPTIDE STAT 12/15/2018 2:39 Results for PM CDT this procedure are in the results section. TROPONIN STAT 12/15/2018 2:39 Results for PM CDT this procedure are in the results section. PARTIAL THROMBOPLASTIN TIME STAT 12/15/2018 2:39 Results for (PTT) PM CDT this procedure are in the results section. PROTHROMBIN TIME WITH INR STAT 12/15/2018 2:39 Results for PM CDT this procedure are in the results section. LACTIC ACID LEVEL, SEPSIS - NOW STAT 12/15/2018 2:39 Results for AND REPEAT 2X EVERY 3 HOURS PM CDT this procedure are in the results section. COMPREHENSIVE METABOLIC PANEL STAT 12/15/2018 2:39 Results for PM CDT this procedure are in the results section. HC COMPLETE BLD COUNT W/AUTO STAT 12/15/2018 2:39 Results for DIFF PM CDT this procedure are in the results section. ECG ED PRELIMINARY Routine 12/15/2018 2:10 Results for INTERPRETATION PM CDT this procedure are in the results section. MN CRITICAL CARE, E/M 30-74 Routine 12/15/2018 2:10 Results for MINUTES PM CDT this procedure are in the results section. ESTIMATED GFR Routine 11/01/2018 11:22 Results for AM CDT this procedure are in the results section. URINALYSIS, AUTOMATED WITH Routine 11/01/2018 11:22 Malignant Results for MICROSCOPY AM CDT neoplasm of this procedure head of are in the pancreas (HCC) results section. HC COMPLETE BLD COUNT W/AUTO Routine 11/01/2018 11:22 Malignant Results for DIFF AM CDT neoplasm of this procedure head of are in the pancreas (HCC) results section. COMPREHENSIVE METABOLIC PANEL Routine 11/01/2018 11:22 Malignant Results for AM CDT neoplasm of this procedure head of are in the pancreas (HCC) results section. IR PORT REMOVAL Routine 08/17/2018 10:37 Results for AM [employer] this procedure are in the results section. IR PORT PLACEMENT Routine 08/17/2018 10:36 Results for AM [employer] this procedure are in the results section. POC GLUCOSE Routine 08/17/2018 7:56 Results for AM [employer] this procedure are in the results section. HC COMPLETE BLD COUNT W/AUTO Routine 08/17/2018 5:30 Results for DIFF AM [employer] this procedure are in the results section. ESTIMATED GFR Routine 08/17/2018 4:00 Results for AM [employer] this procedure are in the results section. BASIC METABOLIC PANEL Routine 08/17/2018 4:00 Results for AM [employer] this procedure are in the results section. IONIZED CALCIUM Routine 08/17/2018 4:00 Results for AM [employer] this procedure are in the results section. URIC ACID LEVEL Routine 08/17/2018 4:00 Results for AM [employer] this procedure are in the results section. PHOSPHORUS LEVEL Routine 08/17/2018 4:00 Results for AM [employer] this procedure are in the results section. MAGNESIUM LEVEL Routine 08/17/2018 4:00 Results for AM [employer] this procedure are in the results section. POC GLUCOSE Routine 08/16/2018 9:07 Results for PM [employer] this procedure are in the results section. POC GLUCOSE Routine 08/16/2018 12:15 Results for PM [employer] this procedure are in the results section. MRI PELVIS W WO CONTRAST Routine 08/16/2018 9:17 Results for AM [employer] this procedure are in the results section. MRI ABDOMEN W WO CONTRAST Routine 08/16/2018 9:17 Results for AM [employer] this procedure are in the results section. POC GLUCOSE Routine 08/15/2018 9:00 Results for PM [employer] this procedure are in the results section. POC GLUCOSE Routine 08/15/2018 12:24 Results for PM [employer] this procedure are in the results section. POC GLUCOSE Routine 08/15/2018 8:41 Results for AM [employer] this procedure are in the results section. INSERTION OR REMOVAL PEG 08/15/2018 7:00 Esophageal AM [employer] dysphagia HC COMPLETE BLD COUNT W/AUTO Routine 08/15/2018 4:30 Results for DIFF AM [employer] this procedure are in the results section. ESTIMATED GFR Routine 08/15/2018 4:00 Results for AM [employer] this procedure are in the results section. CANCER ANTIGEN 19-9 Routine 08/15/2018 4:00 Results for AM [employer] this procedure are in the results section. BASIC METABOLIC PANEL Routine 08/15/2018 4:00 Results for AM [employer] this procedure are in the results section. POC GLUCOSE Routine 08/14/2018 10:09 Results for PM [employer] this procedure are in the results section. ESTIMATED GFR Routine 08/14/2018 4:10 Results for AM [employer] this procedure are in the results section. HC COMPLETE BLD COUNT W/AUTO Routine 08/14/2018 4:10 Results for DIFF AM [employer] this procedure are in the results section. BASIC METABOLIC PANEL Routine 08/14/2018 4:10 Results for AM [employer] this procedure are in the results section. PHOSPHORUS LEVEL Routine 08/14/2018 4:10 Results for AM [employer] this procedure are in the results section. MAGNESIUM LEVEL Routine 08/14/2018 4:10 Results for AM [employer] this procedure are in the results section. ECG 12-LEAD Routine 08/13/2018 9:13 Results for AM [employer] this procedure are in the results section. ESTIMATED GFR Routine 08/13/2018 6:00 Results for AM [employer] this procedure are in the results section. BASIC METABOLIC PANEL Routine 08/13/2018 6:00 Results for AM [employer] this procedure are in the results section. PARTIAL THROMBOPLASTIN TIME Routine 08/13/2018 6:00 Results for (PTT) AM [employer] this procedure are in the results section. PROTHROMBIN TIME WITH INR Routine 08/13/2018 6:00 Results for AM [employer] this procedure are in the results section. HC COMPLETE BLD COUNT W/AUTO Routine 08/13/2018 6:00 Results for DIFF AM [employer] this procedure are in the results section. CT CHEST WO CONTRAST ABDOMEN WO STAT 08/12/2018 4:27 Results for CONTRAST PELVIS WO CONTRAST PM [employer] this procedure are in the results section. ESTIMATED GFR STAT 08/12/2018 3:37 Results for PM [employer] this procedure are in the results section. HC COMPLETE BLD COUNT W/AUTO STAT 08/12/2018 3:37 Results for DIFF PM [employer] this procedure are in the results section. COMPREHENSIVE METABOLIC PANEL STAT 08/12/2018 3:37 Results for PM [employer] this procedure are in the results section. PET CT SKULL BASE TO MID THIGH Routine 05/11/2018 12:45 Results for PM CDT this procedure are in the results section. POC GLUCOSE Routine 05/11/2018 11:13 Results for AM CDT this procedure are in the results section. XR CHEST 2 VW Routine 05/10/2018 7:59 Results for PM CDT this procedure are in the results section. ADRENOCORTICOTROPIC HORMONE Routine 05/10/2018 6:00 Results for PM CDT this procedure are in the results section. CORTISOL, 60 MINUTES Routine 05/10/2018 6:00 Results for PM CDT this procedure are in the results section. CORTISOL, 30 MINUTES Routine 05/10/2018 5:30 Results for PM CDT this procedure are in the results section. ADRENOCORTICOTROPIC HORMONE Routine 05/10/2018 5:30 Results for PM CDT this procedure are in the results section. ADRENOCORTICOTROPIC HORMONE Routine 05/10/2018 5:00 Results for PM CDT this procedure are in the results section. AMYLASE LEVEL Routine 05/10/2018 5:00 Results for PM CDT this procedure are in the results section. LIPASE LEVEL Routine 05/10/2018 5:00 Results for PM CDT this procedure are in the results section. ESTIMATED GFR Routine 05/10/2018 5:00 Results for PM CDT this procedure are in the results section. LACTIC ACID LEVEL Routine 05/10/2018 5:00 Results for PM CDT this procedure are in the results section. COMPREHENSIVE METABOLIC PANEL Routine 05/10/2018 5:00 Results for PM CDT this procedure are in the results section. HC COMPLETE BLD COUNT W/AUTO Routine 05/10/2018 5:00 Results for DIFF PM CDT this procedure are in the results section. MRI BRAIN W WO CONTRAST Routine 05/10/2018 7:58 Results for AM CDT this procedure are in the results section. MRI ABDOMEN W WO CONTRAST Routine 05/10/2018 7:25 Results for AM CDT this procedure are in the results section. CORTISOL, 00 MINUTES Routine 05/09/2018 5:00 Results for PM CDT this procedure are in the results section. LACTIC ACID LEVEL Routine 05/09/2018 4:00 Results for AM CDT this procedure are in the results section. CORTISOL LEVEL, RANDOM Routine 05/09/2018 4:00 Results for AM CDT this procedure are in the results section. ESTIMATED GFR Routine 05/09/2018 4:00 Results for AM CDT this procedure are in the results section. BASIC METABOLIC PANEL Routine 05/09/2018 4:00 Results for AM CDT this procedure are in the results section. HC COMPLETE BLD COUNT W/AUTO Routine 05/09/2018 4:00 Results for DIFF AM CDT this procedure are in the results section. POC GLUCOSE Routine 05/08/2018 8:43 Results for PM CDT this procedure are in the results section. POC GLUCOSE Routine 05/08/2018 5:30 Results for PM CDT this procedure are in the results section. CANCER ANTIGEN 19-9 Routine 05/08/2018 5:30 Results for PM CDT this procedure are in the results section. HEMOGLOBIN & HEMATOCRIT Routine 05/08/2018 5:30 Results for PM CDT this procedure are in the results section. ESOPHAGOGASTRODUODENOSCOPY (EGD) 05/08/2018 3:00 Melena PM CDT Special Needs DO @ BEDSIDE URINALYSIS SCREEN AND Routine 05/08/2018 11:32 Results for this MICROSCOPY, WITH REFLEX AM CDT procedure are in TO CULTURE the results section. URINE CULTURE Routine 05/08/2018 11:32 Results for this AM CDT procedure are in the results section. SURGICAL PATHOLOGY Routine 05/08/2018 9:02 Results for this REQUEST AM CDT procedure are in the results section. SURGICAL PATHOLOGY Routine 05/08/2018 9:02 Results for this REQUEST AM CDT procedure are in the results section. PHOSPHORUS LEVEL Routine 05/08/2018 3:05 Results for this AM CDT procedure are in the results section. MAGNESIUM LEVEL Routine 05/08/2018 3:05 Results for this AM CDT procedure are in the results section. PROTHROMBIN TIME WITH Routine 05/08/2018 3:05 Results for this INR AM CDT procedure are in the results section. PARTIAL THROMBOPLASTIN Routine 05/08/2018 3:05 Results for this TIME (PTT) AM CDT procedure are in the results section. ESTIMATED GFR Routine 05/08/2018 3:05 Results for this AM CDT procedure are in the results section. BASIC METABOLIC PANEL Routine 05/08/2018 3:05 Results for this AM CDT procedure are in the results section. HC COMPLETE BLD COUNT Routine 05/08/2018 3:05 Results for this W/AUTO DIFF AM CDT procedure are in the results section. CT ABDOMEN PELVIS W WO Routine 05/08/2018 2:49 Results for this CONTRAST AM CDT procedure are in the results section. TRANSFUSE RED BLOOD Routine 05/08/2018 1:33 CELLS AM CDT MN INSERT NON-TUNNEL CV Routine 05/07/2018 11:55 Acute blood loss Results for this CATH PM CDT anemia procedure are in the results section. POC GLUCOSE Routine 05/07/2018 8:18 Results for this PM CDT procedure are in the results section. HEMOGLOBIN & HEMATOCRIT Routine 05/07/2018 7:44 Results for this PM CDT procedure are in the results section. POC GLUCOSE Routine 05/07/2018 4:28 Results for this PM CDT procedure are in the results section. POC GLUCOSE Routine 05/07/2018 12:26 Results for this PM CDT procedure are in the results section. XR CHEST 1 VW PORTABLE STAT 05/07/2018 11:00 Results for this AM CDT procedure are in the results section. PREPARE RBC Timed 05/07/2018 10:45 Results for this AM CDT procedure are in the results section. SMEAR REVIEW Routine 05/07/2018 10:45 Results for this AM CDT procedure are in the results section. TYPE AND SCREEN Routine 05/07/2018 10:45 Results for this AM CDT procedure are in the results section. ESTIMATED GFR Routine 05/07/2018 10:45 Results for this AM CDT procedure are in the results section. CARCINOEMBRYONIC ANTIGEN Routine 05/07/2018 10:45 Results for this (CEA) AM CDT procedure are in the results section. PROTHROMBIN TIME WITH Routine 05/07/2018 10:45 Results for this INR AM CDT procedure are in the results section. PARTIAL THROMBOPLASTIN Routine 05/07/2018 10:45 Results for this TIME (PTT) AM CDT procedure are in the results section. COMPREHENSIVE METABOLIC Routine 05/07/2018 10:45 Results for this PANEL AM CDT procedure are in the results section. HC COMPLETE BLD COUNT Routine 05/07/2018 10:45 Results for this W/AUTO DIFF AM CDT procedure are in the results section. POC GLUCOSE Routine 05/07/2018 8:37 Results for this AM CDT procedure are in the results section. FL ESOPHAGRAM COMPLETE Routine 04/26/2018 9:57 Dysphagia, Results for this AM CDT unspecified type procedure are in the results section. CT CHEST EXTERNAL STUDY Routine 04/12/2018 9:41 Results for this AM CDT procedure are in the results section. after 12/27/2017 Results Manual differential (12/28/2018 4:40 AM CDT)Only the most recent of2 resultswithin the time period is included. Manual differential PERFORMED [facility] Neutrophils 91.0 (H) 39.0 - 69.0 % [facility] Lymphocytes 6.0 (L) 25.0 - 45.0 % [facility] Monocytes 3.0 0.0 - 10.0 % [facility] Eosinophils 0.0 0.0 - 5.0 % [facility] Basophils 0.0 0.0 - 1.0 % [facility] Metamyelocytes 0 % [facility] Promyelocytes 0 % [facility] Platelet slide review [place] adequate [facility] Anisocytosis Moderate [facility] Enlarged platelets Moderate (A) [facility] Specimen Performing Organization Address City/State/Zipcode Phone Number [facility] DEPARTMENT OF PATHOLOGY AND [address] [place] [address] [facility] [address] [place] [address] CBC with platelet and differential (12/28/2018 4:40 AM CDT)Only the most recent of28 resultswithin the time period is included. WBC 14.99 (H) 4.50 - 11.00 k/uL [facility] RBC 2.57 (L) 4.40 - 6.00 m/uL [facility] HGB 7.5 (L) 14.0 - 18.0 g/dL [facility] HCT 24.4 (L) 41.0 - 51.0 % [facility] MCV 94.9 82.0 - 100.[address] [facility] MCH 29.2 27.0 - 34.[address] [facility] MCHC 30.7 (L) 31.0 - 37.0 g/dL [facility] RDW - SD 47.2 37.0 - 55.[address] [facility] MPV 10.4 8.8 - 13.[address] [facility] Platelet count 343 150 - 400 k/uL [facility] Nucleated RBC 0.00 /[address] [facility] Neutrophils 91.0 (H) 39.0 - 69.0 % [facility] Lymphocytes 6.0 (L) 25.0 - 45.0 % [facility] Monocytes 3.0 0.0 - 10.0 % [facility] Eosinophils 0.0 0.0 - 5.0 % [facility] Basophils 0.0 0.0 - 1.0 % [facility] Specimen Blood Performing Organization Address City/State/Zipcode Phone Number [facility] DEPARTMENT OF PATHOLOGY AND [address] [place] [address] GENOMIC MEDIC[address] [address] Estimated GFR (12/28/2018 4:00 AM CDT)Only the most recent of26 resultswithin the time period is included. Estimated GFR 53 (A) mL/min/1.73 [facility] Comment: m2 [facility] CatergoryUnitsInterpretation G1 >=90 Normal or high G2 60-89Mildly decreased [id number] to moderately decreased G4o00-10Fchopmyyxu to severely decreased G4 15-29Severely decreased G5 <15Kidney failure The eGFR was calculated using the Chronic Kidney Disease Epidemiology Collaboration (CKD-EPI) equation. Interpretation is based on recommendations of the National Kidney Foundation-Kidney Disease Outcomes Quality Initiative (NKF-KDOQI) published in 2014. Specimen Plasma specimen Performing Organization Address City/[facility]/Zipcode Phone Number [facility] DEPARTMENT OF PATHOLOGY AND [address] [place] [id number] [place] [phone] Phosphorus level (12/28/2018 4:00 AM CDT)Only the most recent of16 resultswithin the time period is included. Phosphorus 5.9 (H) 2.4 - 4.5 mg/dL [facility] Specimen Plasma specimen Performing Organization Address City/[facility] Phone Number [facility] DEPARTMENT OF PATHOLOGY AND [address] [place] [phone] [place] [phone] Magnesium level (12/28/2018 4:00 AM CDT)Only the most recent of17 resultswithin the time period is included. Magnesium 1.9 1.6 - 2.4 mg/dL [facility] Specimen Plasma specimen Performing Organization Address [facility] Phone Number [facility] DEPARTMENT OF PATHOLOGY AND [address] [place] [phone] Basic metabolic panel (12/28/2018 4:00 AM CDT)Only the most recent of19 resultswithin the time period is included. Sodium 137 135 - 148 mEq/L [facility] Potassium 5.3 (H) 3.5 - 5.0 mEq/L [facility] Chloride 101 98 - 112 mEq/L [facility] CO2 19 (L) 24 - 31 mEq/L [facility] Anion gap 17@ANIO (H) 7 - 15 mEq/L [facility] BUN 34 (H) 8 - 23 mg/dL [facility] Creatinine 1.40 (H) 0.70 - 1.20 mg/dL [facility] Glucose 119 (H) 65 - 99 mg/dL [facility] Calcium 7.1 (L) 8.8 - 10.2 mg/dL [facility] Specimen Plasma specimen Performing Organization Address [facility] Centercode Phone Number [facility] DEPARTMENT OF PATHOLOGY AND [address] [place] [address] [address] [place] [address] POC glucose (12/26/2018 7:39 PM CDT)Only the most recent of61 resultswithin the time period is included. POC glucose 75 65 - 99 mg/dL [facility] Comment: [facility] Notified RN Meter ID: [id number] Stoker Mechanic: Ole Garrison Specimen Performing Organization Address City/State/Zipcode Phone Number [facility] DEPARTMENT OF PATHOLOGY AND [address] [place] [phone] [address] [address] Abdomen Pelvis W Contrast (12/24/2018 6:47 AM CDT)Only the most recent of4 resultswithin the time period is included. Specimen Narrative Performed At EXAMINATION:CT ABDOMEN PELVIS W CONTRAST [facility]IANT CLINICAL HISTORY: 63 yearsMale Abd painunspecified TECHNIQUE: Multiple axial images of the abdomen and pelvis were obtained following intravenous administration of iodinated contrast. Sagittal and coronal computerized reformatted images were also obtained. CT imaging was performed with iterative reconstruction techniques and/or automated exposure control to reduce radiation dose. COMPARISON:Comparison made with CT dated 12/21/2018. IMPRESSION: LOWER CHEST: Moderate to large bilateral pleural effusions are present with bibasilar atelectasis. ABDOMEN: Liver: The liver is normal in size and contour without discrete mass. Gallbladder/Biliary: The gallbladder is normal. There is no evidence of intra or extrahepatic biliary ductal dilatation. Spleen: The spleen is normal in size. Pancreas: A primary pancreatic tumor with encasement of the celiac and main portal vein most portion of the SMA is reidentified, and resulting in moderate bilobar intrahepatic biliary ductal dilatation. Adrenal Glands: The adrenal glands are unremarkable. Kidneys: The kidneys are unremarkable. No mass, hydronephrosis or calculi. Vascular: The abdominal aorta is nonaneurysmal. Nodes: No enlarged retroperitoneal or mesenteric lymphadenopathy. Bowel: Patient is again seen to be status post subtotal colectomy with a right lower quadrant colostomy and left lower quadrant mucous fistula. A gastrostomy tube is present within a distended stomach. The bowel is otherwise unobstructed.Scattered peritoneal metastatic deposits are noted including a 3.3 cm deposit deep in the pelvis. Ascites/fluid collections: Large volume ascites with additional superimposed moderate pneumoperitoneum is similar to prior study, which may be postsurgical. PELVIS: Lymphovascular:No adenopathy. Reproductive organs: Unremarkable. Bladder: The urinary bladder is decompressed by Wolfe catheter. Other:None. MUSCULOSKELETAL: Sclerotic lesion in the left inferior pubic ramus, likely metastatic. There is diffuse body wall edema/anasarca. SUMMARY: 1.No significant change from prior study, with persistent gastric distention. 2.Post surgical changes related to subtotal colectomy and mucous fistula with large volume ascites and metastatic pancreatic carcinoma reidentified. [facility]-[id number] Procedure Note [facility], Radiology Results Incoming - 12/24/2018 7:54 AM CDT EXAMINATION: CT ABDOMEN PELVIS W CONTRAST CLINICAL HISTORY: 63 yearsMale Abd pain unspecified TECHNIQUE: Multiple axial images of the abdomen and pelvis were obtained following intravenous administration of iodinated contrast. Sagittal and coronal computerized reformatted images were also obtained. CT imaging was performed with iterative reconstruction techniques and/or automated exposure control to reduce radiation dose. COMPARISON: Comparison made with CT dated 12/21/2018. IMPRESSION: LOWER CHEST: Moderate to large bilateral pleural effusions are present with bibasilar atelectasis. ABDOMEN: Liver: The liver is normal in size and contour without discrete mass. Gallbladder/Biliary: The gallbladder is normal. There is no evidence of intra or extrahepatic biliary ductal dilatation. Spleen: The spleen is normal in size. Pancreas: A primary pancreatic tumor with encasement of the celiac and main portal vein most portion of the SMA is reidentified, and resulting in moderate bilobar intrahepatic biliary ductal dilatation. Adrenal Glands: The adrenal glands are unremarkable. Kidneys: The kidneys are unremarkable. No mass, hydronephrosis or calculi. Vascular: The abdominal aorta is nonaneurysmal. Nodes: No enlarged retroperitoneal or mesenteric lymphadenopathy. Bowel: Patient is again seen to be status post subtotal colectomy with a right lower quadrant colostomy and left lower quadrant mucous fistula. A gastrostomy tube is present within a distended stomach. The bowel is otherwise unobstructed. Scattered peritoneal metastatic deposits are noted including a 3.3 cm deposit deep in the pelvis. Ascites/fluid collections: Large volume ascites with additional superimposed moderate pneumoperitoneum is similar to prior study, which may be postsurgical. PELVIS: Lymphovascular: No adenopathy. Reproductive organs: Unremarkable. Bladder: The urinary bladder is decompressed by Wolfe catheter. Other: None. MUSCULOSKELETAL: Sclerotic lesion in the left inferior pubic ramus, likely metastatic. There is diffuse body wall edema/anasarca. SUMMARY: 1. No significant change from prior study, with persistent gastric distention. 2. 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 [facility]-[id number] Performing Organization Address City/State/Zipcode Phone Number JANE [address] [place] [address] Comprehensive metabolic panel (12/24/2018 4:00 AM CDT)Only the most recent of7 resultswithin the time period is included. Sodium 136 135 - 148 [facility] mEq/L [facility] Potassium 5.0 3.5 - 5.0 [facility] mEq/L [facility] Chloride 105 98 - 112 mEq/L [facility] CO2 21 (L) 24 - 31 mEq/L [facility] Anion gap 10@ANIO 7 - 15 mEq/L [facility] BUN 15 8 - 23 mg/dL [facility] Creatinine 0.41 (L) 0.70 - 1.20 [facility] mg/dL HOSPITAL Glucose 190 (H) 65 - 99 mg/dL [facility] Calcium 7.6 (L) 8.8 - 10.2 [facility] mg/dL [facility] Protein 4.3 (L) 6.3 - 8.3 g/dL [facility] Comment: HOSPITAL 4.6-7.0 g/dL 1 week 4.4-7.6 g/dL 7 months-1year5.1-7.3 g/dL 1-2 years5.6-7.5 g/dL >3 years6.0-8.0 g/dL 18-150 6.3-8.3 g/dL Albumin 1.4 (L) 3.5 - 5.0 g/dL [facility] A/G ratio 0.5 (L) 0.7 - 3.8 [facility] Alkaline phosphatase 435 (H) 40 - 129 U/L [facility] AST 77 (H) 10 - 50 U/L [facility] ALT 123 (H) 5 - 50 U/L [facility] Total bilirubin 0.5 0.0 - 1.2 [facility] mg/dL [facility] Specimen Plasma specimen Performing Organization Address City/State/Zipcode Phone Number [facility] DEPARTMENT OF PATHOLOGY AND [address] [place] [address] [facility] [address] [place] [address] XR Abdomen 1 Vw (12/24/2018 3:08 AM CDT) Specimen Narrative Performed At Examination:XR ABDOMEN 1 VW [facility] Clinical History: Abd painunspecified Comparison: 12/19/2018 Findings: Single frontal view of the abdomen is obtained. Stomach is slightly distended. There are some prominent loops of bowel also noted in the mid abdomen. Free intraperitoneal air is noted. This was also seen on the prior study. Gastrostomy tube is noted. IMPRESSION: 1. Nonspecific prominent or distended bowel loops centrally. 2. Free intraperitoneal air which was also seen on the prior study. This may be related to recent surgery. Anastomotic leak cannot be excluded. Clinical and surgical correlation is recommended. Dr. Khanna was informed of these findings on 12/24/2018 3:39 AM and acknowledged understanding of the findings. [facility]-[id number] Procedure Note Interface, Radiology Results Incoming - 12/24/2018 3:43 AM CDT Examination: XR ABDOMEN 1 VW Clinical History: Abd pain unspecified Comparison: 12/19/2018 Findings: Single frontal view of the abdomen is obtained. Stomach is slightly distended. There are some prominent loops of bowel also noted in the mid abdomen. Free intraperitoneal air is noted. This was also seen on the prior study. Gastrostomy tube is noted. IMPRESSION: 1. Nonspecific prominent or distended bowel loops centrally. 2. Free intraperitoneal air which was also seen on the prior study. This may be related to recent surgery. Anastomotic leak cannot be excluded. Clinical and surgical correlation is recommended. Dr. Khanna was informed of these findings on 12/24/2018 3:39 AM and acknowledged understanding of the findings. [facility]-[id number] Performing Organization Address City/[facility]/Zipcode Phone Number [facility] [address] [place] [address] Lactic acid level, SEPSIS - Now and repeat 2x every 3 hours (12/24/2018 2:44 AM CDT)Only the most recent of3 resultswithin the time period is included. Lactic acid 1.7 0.5 - 2.2 mmol/L [facility] Specimen Blood Performing Organization Address City/State/Zipcode Phone Number [facility] DEPARTMENT OF PATHOLOGY AND [address] [place] [address] GENOMIC MEDICINE [address] [address] Lactic acid level (12/24/2018 1:06 AM CDT)Only the most recent of4 resultswithin the time period is included. Lactic acid 3.0 (H) 0.5 - 2.2 mmol/L [facility] Specimen Blood Performing Organization Address City/State/Zipcode Phone Number [facility] DEPARTMENT OF PATHOLOGY AND [address] [place] [address] [address] Cytology (non-gynecological) request (12/22/2018 12:22 PM CDT)Only the most recent of2 resultswithin the time period is included. [facility] DEPARTMENT OF PATHOLOGY AND GENOMIC MEDICINE Cytology See link below for [facility] DEPARTMENT OF (non-gynecological PDF Lab Report PATHOLOGY AND ) report GENOMIC MEDICINE Result status This is Supplemental [facility] DEPARTMENT OF Report for PATHOLOGY AND [id number] GENOMIC MEDICINE Specimen Performing Organization Address [facility] Phone Number [facility] DEPARTMENT OF PATHOLOGY AND [address] [place] [address] [place], [place] [phone] GENOMIC MEDICINE US Abdominal Paracentesis Imaging (12/22/2018 11:36 AM CDT) Specimen Narrative Performed At EXAMINATION:US ABDOMINAL PARACENTESIS IMAGING [facility] CLINICAL HISTORY: ASCITES COMPARISON:None. TECHNIQUE: The procedure's risks, benefits, and alternatives were discussed with the patient and written, informed consent was obtained. Using ultrasound guidance, a site for needle entry was selected and the overlying skin was prepped and draped in the usual sterile fashion. 1% buffered lidocaine was used for local anesthesia. A 5 [place] Yueh catheter was inserted into the peritoneal cavity and 2.3 L of peritoneal fluid was removed. The fluid was sent to the lab for the requested studies.The patient tolerated the procedure without difficulty and was discharged to the radiology recovery area for monitoring prior to discharge. EBL: None. COMPLICATIONS: None. SPECIMENS: As above. ASSISTANTS: None. IMPRESSION: Uncomplicated ultrasound-guided diagnostic and therapeutic paracentesis. [facility]-[id number] Procedure Note Hm Interface, Radiology Results Incoming - 12/22/2018 2:42 PM CDT EXAMINATION: US ABDOMINAL PARACENTESIS IMAGING CLINICAL HISTORY: ASCITES COMPARISON:None. TECHNIQUE: The procedure's risks, benefits, and alternatives were discussed with the patient and written, informed consent was obtained. Using ultrasound guidance, a site for needle entry was selected and the overlying skin was prepped and draped in the usual sterile fashion. 1% buffered lidocaine was used for local anesthesia. A 5 [place] Yueh catheter was inserted into the peritoneal cavity and 2.3 L of peritoneal fluid was removed. The fluid was sent to the lab for the requested studies. The patient tolerated the procedure without difficulty and was discharged to the radiology recovery area for monitoring prior to discharge. EBL: None. COMPLICATIONS: None. SPECIMENS: As above. ASSISTANTS: None. IMPRESSION: Uncomplicated ultrasound-guided diagnostic and therapeutic paracentesis. [facility]-[id number] Performing Organization Address [facility]/Zipcode Phone Number [facility] [address] [place] [address] Fungus smear (12/22/2018 11:24 AM CDT) Fungus smear No fungi observed. [facility] Comment: HOSPITAL Specimen Information Specimen Source: Peritoneal fluid Specimen Site: Abdomen Specimen Peritoneal fluid - Abdomen Performing Organization Address [facility] Phone Number [facility] DEPARTMENT OF PATHOLOGY AND [address] [place] [phone] [place] [address] Aerobic culture (12/22/2018 11:24 AM CDT)Only the most recent of2 resultswithin the time period is included. Aerobic culture No growth after 72 hours [facility] isolate Comment: HOSPITAL Specimen Information Specimen Source: Peritoneal fluid Specimen Site: Abdomen Specimen Peritoneal fluid - Abdomen Performing Organization Address [facility]/Zipcode Phone Number [facility] DEPARTMENT OF PATHOLOGY AND [address] [place] [phone] [place] [phone] Gram stain (12/22/2018 11:24 AM CDT)Only the most recent of2 resultswithin the time period is included. Gram stain isolate Occasional WBC's [facility] No organisms seen HOSPITAL Comment: Specimen Information Specimen Source: Peritoneal fluid Specimen Site: Abdomen Specimen Peritoneal fluid - Abdomen Performing Organization Address [facility] Phone Number [facility] DEPARTMENT OF PATHOLOGY AND [address] [place] [phone] [place] [address] Anaerobic culture (12/22/2018 11:24 AM CDT)Only the most recent of2 resultswithin the time period is included. Anaerobic culture No anaerobic organisms isolated. [facility] isolate Comment: HOSPITAL Specimen Information Specimen Source: Peritoneal fluid Specimen Site: Abdomen Specimen Peritoneal fluid - Abdomen Performing Organization Address [facility] Phone Number [facility] DEPARTMENT OF PATHOLOGY AND [address] [place] [phone] [place] [phone] Cell count and differential, body fluid (12/22/2018 11:24 AM CDT) Misc fluid type Peritoneal [facility] Color, fluid Yellow [facility] Appearance, fluid Cloudy (A) [facility] RBC, fluid SEE COMMENTComment: /CMM [facility] 3+ (10,000 - 20,000 [facility] RBC/CMM) Nucleated cells, 545 /CMM [facility] Fluid mononuclear See Diff [facility] Neutrophils, fluid 30 % [facility] Lymphocytes, fluid 11 % [facility] Macrophages, fluid 57 % [facility] Plasma cells, fluid 2 % [facility] Specimen Fluid Performing Organization Address [facility] Phone Number [facility] DEPARTMENT OF PATHOLOGY AND [address] [place] [address] [address] Protein, misc fluid (12/22/2018 11:24 AM CDT) Fluid type Peritoneal [facility] Protein, fluid 1.7 g/dL [facility] Comment: HOSPITAL The reference interval(s) and other method performance specifications have not been established for this body fluid. The test results must be integrated into the clinical context for interpretation. Specimen Fluid Performing Organization Address [facility] Phone Number [facility] DEPARTMENT OF PATHOLOGY AND [address] [place] [address] [address] LDH, misc fluid (12/22/2018 11:24 AM CDT) Pathologist [facility] Fluid type Peritoneal [facility] LDH, fluid 294 U/L [facility] Comment: [facility] The reference interval(s) and other method performance specifications have not been established for this body fluid. The test results must be integrated into the clinical context for interpretation. Specimen Fluid Performing Organization Address [facility] Phone Number [facility] DEPARTMENT OF PATHOLOGY AND [address] [place] [address] Albumin, misc fluid (12/22/2018 11:24 AM CDT) Pathologist [facility] Fluid type Peritoneal [facility] Albumin, fluid 0.9 g/dL [facility] Comment: [facility] The reference interval(s) and other method performance specifications have not been established for this body fluid. The test results must be integrated into the clinical context for interpretation. Specimen Fluid Performing Organization Address [facility] Phone Number [facility] DEPARTMENT OF PATHOLOGY AND [address] [place] [address] Partial thromboplastin time, activated (12/22/2018 5:47 AM CDT)Only the most recent of9 resultswithin the time period is included. [facility] PTT 35.1 23.0 - 36.0 [facility] Comment: [facility] PTT therapeutic range for unfractionated heparin is 61.0-112.0 seconds which corresponds to Anti-Xa 0.3-0.7 U/ml. Specimen Blood Performing Organization Address [facility] Phone Number [facility] DEPARTMENT OF PATHOLOGY AND [address] [place] [address] Prothrombin time with INR (12/22/2018 5:47 AM CDT)Only the most recent of9 resultswithin the time period is included. [facility] Prothrombin time 15.9 (H) 11.5 - 14.5 [facility] INR 1.3 [facility] Comment: KAYLA The International Normalized Ratio (INR) is a therapeutic HOSPITAL monitoring tool for patients who are stable on oral anticoagulant therapy. An INR of 2.0-3.0 is suggested for deep vein thrombosis/pulmonary embolism. Specimen Blood Performing Organization Address City/State/Zipcode Phone Number [facility] DEPARTMENT OF PATHOLOGY AND [address] [place] [address] [facility] [address] [place] [address] [place] Scrotal (12/21/2018 6:14 PM CDT) Specimen Narrative Performed At EXAMINATION:US SCROTAL [facility] CLINICAL HISTORY:Scrotal painnontraumatic, swelling COMPARISON:None. TECHNIQUE:Sonographic evaluation of the scrotum. Real-time B mode grayscale, Doppler spectral analysis and Doppler color flow imaging was used to assess testicular vasculature. FINDINGS: There is diffuse marked edema throughout the subcutaneous tissues of the scrotum compatible with infiltrating infection.No jose abscesses are identified. RIGHT HEMISCROTUM: The right testicle measures 3.3 x 2.6 x 2.3 cm.. Testicular echogenicity is normal. No intratesticular masses are identified. There is normal color and duplex Doppler flow. The right epididymis is unremarkable.There is a tiny 3 mm cyst There is minimal hydrocele. There is no varicocele. LEFT HEMISCROTUM: The left testicle measures 3.1 x 2.3 x 2.2 cm.. Testicular echogenicity is normal. No intratesticular masses are identified. There is normal color and duplex Doppler flow. The left epididymis is unremarkable. There is minimal hydrocele. There is no varicocele. IMPRESSION: Scrotal cellulitis. [facility]-[id number] Procedure Note Interface, Radiology Results Incoming - 12/21/2018 6:36 PM CDT EXAMINATION: US SCROTAL CLINICAL HISTORY: Scrotal pain nontraumatic, swelling COMPARISON: None. TECHNIQUE: Sonographic evaluation of the scrotum. Real-time B mode grayscale, Doppler spectral analysis and Doppler color flow imaging was used to assess testicular vasculature. FINDINGS: There is diffuse marked edema throughout the subcutaneous tissues of the scrotum compatible with infiltrating infection. No jose abscesses are identified. RIGHT HEMISCROTUM: The right testicle measures 3.3 x 2.6 x 2.3 cm.. Testicular echogenicity is normal. No intratesticular masses are identified. There is normal color and duplex Doppler flow. The right epididymis is unremarkable. There is a tiny 3 mm cyst There is minimal hydrocele. There is no varicocele. LEFT HEMISCROTUM: The left testicle measures 3.1 x 2.3 x 2.2 cm.. Testicular echogenicity is normal. No intratesticular masses are identified. There is normal color and duplex Doppler flow. The left epididymis is unremarkable. There is minimal hydrocele. There is no varicocele. IMPRESSION: Scrotal cellulitis. [facility]-[id number] Performing Organization Address [facility] Phone Number [facility] [address] [place] [address] XR Abdomen 1 Vw Portable (12/19/2018 6:23 AM CDT)Only the most recent of2 resultswithin the time period is included. Specimen Narrative Performed At EXAMINATION:XR ABDOMEN 1 VW PORTABLE [facility] CLINICAL HISTORY:s p ex lapcolectomyworsening abd pain COMPARISON:12/19/2018 IMPRESSION: 1.Gastrostomy tube remains in place. 2.Opaque contrast material is noted in the lower right abdomen. The bowel gas pattern is nonspecific.There are operative changes related to midline laparotomy. There is persistent free intraperitoneal air. 3.Minimal atelectasis is present at the right lung base. There are no pleural effusions. 4.Regional skeletal structures are within normal limits. [id number] Procedure Note Hm Interface, Radiology Results Incoming - 12/19/2018 7:01 AM CDT EXAMINATION: XR ABDOMEN 1 VW PORTABLE CLINICAL HISTORY: s p ex lap colectomy worsening abd pain COMPARISON: 12/19/2018 IMPRESSION: 1. Gastrostomy tube remains in place. 2. Opaque contrast material is noted in the lower right abdomen. The bowel gas pattern is nonspecific. There are operative changes related to midline laparotomy. There is persistent free intraperitoneal air. 3. Minimal atelectasis is present at the right lung base. There are no pleural effusions. 4. Regional skeletal structures are within normal limits. [facility]-[id number] Performing Organization Address [facility] Phone Number [facility] [address] [place] [address] Hemoglobin & hematocrit (12/18/2018 12:30 PM CDT)Only the most recent of3 resultswithin the time period is included. HGB 8.3 (L) 14.0 - 18.0 g/dL [facility] HCT 25.7 (L) 41.0 - 51.0 % [facility] Specimen Blood Performing Organization Address City/[facility] Cent[facility]ode Phone Number [facility] DEPARTMENT OF PATHOLOGY AND [address] [place] [phone] [place] [phone] Smear review (12/18/2018 12:25 AM CDT)Only the most recent of2 resultswithin the time period is included. Platelet slide review [place] slt decr [facility] Anisocytosis Moderate [facility] Polychromasia Moderate [facility] Specimen Performing Organization Address City/[facility] Phone Number [facility] DEPARTMENT OF PATHOLOGY AND [address] [place] [phone] [place] [phone] Ionized calcium (12/18/2018 12:25 AM CDT)Only the most recent of3 resultswithin the time period is included. pH 7.49 [facility] Ionized calcium 1.16 1.11 - 1.32 mmol/L [facility] Specimen Plasma specimen Performing Organization Address [facility] Phone Number [facility] DEPARTMENT OF PATHOLOGY AND [address] [place] [phone] [address] Hepatic function panel (12/18/2018 12:25 AM CDT) Albumin 2.4 (L) 3.5 - 5.0 g/dL [facility] Total bilirubin 0.4 0.0 - 1.2 [facility] mg/dL [facility] Bilirubin direct <0.2 0.0 - 0.3 [facility] mg/dL [facility] Alkaline phosphatase 89 40 - 129 U/L [facility] Protein 4.7 (L) 6.3 - 8.3 g/dL [facility] Comment: HOSPITAL 4.6-7.0 g/dL 1 week 4.4-7.6 g/dL 7 months-1year5.1-7.3 g/dL 1-2 years5.6-7.5 g/dL >3 years6.0-8.0 g/dL 18-150 6.3-8.3 g/dL ALT 16 5 - 50 U/L [facility] AST 37 10 - 50 U/L [facility] Specimen Plasma specimen Performing Organization Address City/State/Zipcode Phone Number [facility] DEPARTMENT OF PATHOLOGY AND [address] [place] [address] [address] Surgical pathology request (12/17/2018 8:36 AM CDT)Only the most recent of3 resultswithin the time period is included. [facility] DEPARTMENT OF PATHOLOGY AND GENOMIC MEDICINE Surgical pathology See link below [facility] DEPARTMENT OF report for PDF Lab PATHOLOGY AND Report GENOMIC MEDICINE Result status This is Final [facility] DEPARTMENT OF Report for PATHOLOGY AND [id number] GENOMIC MEDICINE Specimen Performing Organization Address City/[facility] Phone Number [facility] DEPARTMENT OF PATHOLOGY AND [address] [place] [phone] [place] [address] Urinalysis, automated with microscopy (12/17/2018 2:20 AM CDT)Only the most recent of2 resultswithin the time period is included. Color, UA Straw [facility] Appearance, UA Clear [facility] Specific gravity, UA 1.038 (H) 1.001 - 1.035 [facility] pH, UA 5.0 5.0 - 8.5 [facility] Protein, UA Negative Negative [facility] Glucose, UA 1+ (A) Negative [facility] Ketones, UA Trace (A) Negative [facility] Bilirubin, UA Negative Negative [facility] Blood, UA Moderate (A) Negative [facility] Nitrite, UA Negative Negative [facility] Urobilinogen, UA <2.[address] <[address] [facility] Leukocyte esterase, Negative Negative [facility] Epithelial cells, UA 1 /HPF [facility] WBC, UA 3 (H) 0 - 1 /HPF [facility] RBC, UA 80 (H) 0 - 5 /HPF [facility] Bacteria, UA Few None seen [facility] Yeast, UA None seen [facility] Yeast with None seen [facility] pseudohyphae, [facility]A [facility]OSPITAL Specimen Urine Performing Organization Address City/[facility]/Zipcode Phone Number [facility] DEPARTMENT OF PATHOLOGY AND [address] [place] [address] [place] [address] Fibrinogen (12/17/2018 2:20 AM CDT) Fibrinogen 273 200 - 450 mg/dL [facility] Specimen Blood Performing Organization Address City/[facility] Phone Number [facility] DEPARTMENT OF PATHOLOGY AND [address] [place] [phone] [place] [phone] Sodium level, syringe (12/16/2018 11:32 PM CDT) Sodium, syringe 136 135 - 148 mEq/L [facility] Specimen Blood Performing Organization Address City/[facility] Phone Number [facility] DEPARTMENT OF PATHOLOGY AND [address] [place] [phone] [place] [phone] Potassium, syringe (12/16/2018 11:32 PM CDT) Potassium, syringe 4.4 3.5 - 5.0 mEq/L [facility] Specimen Blood Performing Organization Address [facility] Phone Number [facility] DEPARTMENT OF PATHOLOGY AND [address] [place] [phone] Ionized calcium, arterial (12/16/2018 11:32 PM CDT) Ionized calcium, 1.01 (L) 1.11 - 1.32 [facility] arterial mmol/L [facility] Specimen Blood Performing Organization Address City/[facility] Phone Number [facility] DEPARTMENT OF PATHOLOGY AND [address] [place] [address] Hemoglobin, syringe (12/16/2018 11:32 PM CDT) Hemoglobin, syringe 9.0 (L) 14.0 - 18.0 g/dL [facility] Specimen Blood Performing Organization Address City[facility] Phone Number [facility] DEPARTMENT OF PATHOLOGY AND [address] [place] [address] [address] Glucose level, syringe (12/16/2018 11:32 PM CDT) Glucose, syringe 149 (H) 65 - 99 mg/dL [facility] Specimen Blood Performing Organization Address [facility] Phone Number [facility] DEPARTMENT OF PATHOLOGY AND [address] [place] [address] Arterial blood gas, corrected (12/16/2018 11:32 PM CDT) pH, arterial 7.34 (L) 7.35 - 7.45 [facility] pCO2, arterial 41 35 - [address] [facility] pO2, arterial 260 (H) 80 - [address] [facility] Temperature, Celsius 37.[address] [facility] O2 saturation, 99 95 - 100 % [facility] arterial HOSPITAL pH, arterial 7.34 [facility]PITAL pCO2, arterial 41 mmHg [facility]ITAL pO2, arterial 260 mmHg [facility] H[facility]ITAL Base excess, arterial -3 (L) -2 - 2 mEq/L [facility] Specimen Blood Performing Organization Address City/[facility] Phone Number [facility] DEPARTMENT OF PATHOLOGY AND [address] [place] [address] Prepare fresh frozen plasma (12/16/2018 9:40 PM CDT) Product name Thawed Plasma [facility] Unit number [id number] [facility] Product code [id number] [facility] Dispense status Transfused [facility] Blood expiration date [facility] Blood type code 6200 [facility] Blood type A POSITIVE [facility] Product name Thawed Plasma [facility] Unit number [id number] [facility] Product code [id number] [facility] Dispense status Transfused [facility] Blood expiration date [facility] Blood type code 6200 [facility] Blood type A POSITIVE [facility] Specimen Performing Organization Address City/[facility] Phone Number [facility] DEPARTMENT OF PATHOLOGY AND [address] [place] [address] Prepare RBC, 1 Units (12/16/2018 9:40 PM CDT)Only the most recent of3 resultswithin the time period is included. Product name Red Cells AS1 [facility] Leukored [facility] Unit number [id number] [facility] Product code [id number] [facility] Dispense status Transfused [facility] Blood expiration [id number] [facility] Blood type code 0600 [facility] Blood type A NEGATIVE [facility] Specimen Blood Performing Organization Address City/[facility] Phone Number [facility] DEPARTMENT OF PATHOLOGY AND [address] [place] [address] Type and screen (12/16/2018 9:40 PM CDT)Only the most recent of2 resultswithin the time period is included. ABO grouping A [facility] Rh type NEG [facility] Antibody screen (gel) NEG [facility] Specimen Blood Performing Organization Address [facility] Phone Number [facility] DEPARTMENT OF PATHOLOGY AND [address] [place] [address] Urinalysis screen and microscopy, with reflex to culture (12/16/2018 6:39 AM CDT)Only the most recent of2 resultswithin the time period is included. Specimen site Catheterized [facility] Color, UA Yellow [facility] Appearance, UA Clear [facility] Specific gravity, 1.035 1.001 - 1.035 [facility] pH, UA 5.0 5.0 - 8.5 [facility] Protein, UA Negative Negative [facility] Glucose, UA Negative Negative [facility] Ketones, UA Trace (A) Negative [facility] Bilirubin, UA Negative Negative [facility] Blood, UA Negative Negative [facility] Nitrite, UA Negative Negative [facility] Urobilinogen, UA <2.[address] [facility] Leukocyte esterase, Negative Negative [facility] WBC, UA <1 0 - 1 /HPF [facility] RBC, UA <1 0 - 5 /HPF [facility] Bacteria, UA Few None seen [facility] Yeast, UA None seen [facility] Yeast with None seen [facility] pseudohyphae, [facility] Specimen Urine Performing Organization Address [facility]/Zipcode Phone Number [facility] DEPARTMENT OF PATHOLOGY AND [address] [place] [phone] [place] [address] Urine culture (12/16/2018 6:30 AM CDT)Only the most recent of2 resultswithin the time period is included. [facility] Urine culture SEE COMMENTComment: [facility] Bacteriuria screen HOSPITAL negative. Specimen Performing Organization Address City/[facility] Phone Number [facility] DEPARTMENT OF PATHOLOGY AND [address] [place] [address] Varicella zoster by PCR (12/16/2018 3:31 AM CDT) [facility] VZV result Not-Detected Not-Detected [facility] copies/mL [facility] Varicella zoster, See link below [facility] pcr for PDF Lab HOSPITAL ReportComment: Specimen Performing Organization Address [facility] Phone Number [facility] DEPARTMENT OF PATHOLOGY AND [address] [place] [address] Cancer antigen 19-9 (12/16/2018 3:31 AM CDT)Only the most recent of3 resultswithin the time period is included. [facility] CA 19-9 5,023 (H) 0 - 35 U/mL [facility] Comment: HOSPITAL The [employer] 8000 CA19-9 immunoassay was used. Results obtained with different assay methods or kits should not be used interchangeably and may be different. Specimen Plasma specimen Performing Organization Address [facility] Phone Number [facility] DEPARTMENT OF PATHOLOGY AND [address] [place] [address] ECG 12 lead (12/15/2018 3:29 PM CDT)Only the most recent of2 resultswithin the time period is included. Pathologist [facility] Ventricular rate 70 [facility] Atrial rate 70 [facility] MN interval 162 [facility] QRSD interval 98 [facility] QT interval 416 [facility] QTC interval 449 [facility] P axis 1 72 [facility] QRS axis 1 60 [facility] T wave axis [address] [facility] MUSE EKG impression Normal sinus [facility] MUSE rhythm-Normal ECG-No previous ECGs available-Electronicall y Signed By Pedro Miller MD ([id number]) on 12/16/2018 10:09:06 PM Specimen Narrative Performed At Performing Organization Address City/[facility]/Zipcode Phone Number [facility] MUSE [address] [place] [address] Troponin (12/15/2018 2:39 PM CDT) Troponin <0.006 0.000 - 0.040 [facility] Comment: ng/mL [facility] changed methodology effective: 12/05/2018 at 10:00 am The new method has a 99th percentile cutoff of 0.040 ng/mL Specimen Plasma specimen Performing Organization Address [facility] Phone Number [facility] DEPARTMENT OF PATHOLOGY AND [address] [place] [phone] [place] [phone] B natriuretic peptide (12/15/2018 2:39 PM CDT) BNP 24 0 - 100 pg/mL [facility] Specimen Blood Performing Organization Address [facility] Phone Number [facility] DEPARTMENT OF PATHOLOGY AND [address] [place] [address] Lipase level (12/15/2018 2:39 PM CDT)Only the most recent of2 resultswithin the time period is included. Lipase 5 (L) 13 - 60 U/L [facility] Specimen Plasma specimen Performing Organization Address [facility] Phone Number [facility] DEPARTMENT OF PATHOLOGY AND [address] [place] [address] [address] Amylase level (12/15/2018 2:39 PM CDT)Only the most recent of2 resultswithin the time period is included. Amylase 24 (L) 28 - 100 U/L [facility] Specimen Plasma specimen Performing Organization Address City/[facility] Phone Number [facility] DEPARTMENT OF PATHOLOGY AND [address] [place] [phone] [place] [address] ECG ED Preliminary Interpretation - Not an Order (12/15/2018 2:10 PM CDT) Narrative Performed At Melissa Carpenter MD 12/16/2018 10:48 AM ECG ED Preliminary Interpretation - Not an Order Performed by: Kalani Garcia PA-C Authorized by: Melissa Carpenter MD ECG reviewed by ED Physician in the absence of a processing inspector: yes Previous ECG: Previous ECG:Compared to current Similarity:No change Interpretation: Interpretation: normal Rate: ECG rate:70 ECG rate assessment: normal Rhythm: Rhythm: sinus rhythm Ectopy: Ectopy: none QRS: QRS axis:Normal Conduction: Conduction: normal ST segments: ST segments:Normal T waves: T waves: normal CRITICAL CARE (12/15/2018 2:10 PM CDT) Narrative Performed At Melissa Carpenter MD 12/16/2018 10:48 AM Critical Care Performed by: Kalani Garcia PA-C Authorized by: Melissa Carpenter MD Critical care provider statement: Critical care time (minutes):35 Critical care time was exclusive of:Separately billable procedures and treating other patients and teaching time Critical care was necessary to treat or prevent imminent or life-threatening deterioration of the following conditions:Dehydration Critical care was time spent personally by me on the following activities:Development of treatment plan with patient or surrogate, discussions with consultants, discussions with primary provider, evaluation of patient's response to treatment, examination of patient, obtaining history from patient or surrogate, review of old charts, re-evaluation of patient's condition, pulse oximetry, ordering and review of radiographic studies, ordering and review of laboratory studies and ordering and performing treatments and interventions IR Port Removal (08/17/2018 10:37 AM WORKERS COMPENSATION ATTORNEY) Specimen Narrative Performed At PERFORMING RADIOLOGIST: MODESTO Carreon MD ASSISTANTS: None ANESTHESIA TIME: Intraservice moderate sedation was administered by the procedure nurse and monitored by the procedure physician for 57 minutes. Lidocaine 1% and lidocaine 1% mixed epinephrine were used for local anesthetic. PRE PROCEDURE DIAGNOSIS: Left chest port malfunctioning. POST PROCEDURE DIAGNOSIS: Status post subcutaneous left chest port removal. PROCEDURE: Subcutaneous left chest port removal. TECHNIQUE: Written informed consent was obtained prior to the procedure. The patient was placed in a supine position on the procedure table. The left chest was sterilely prepared and draped in the routine manner. All elements of maximal sterile barrier technique were followed. A help desk assistant fluoroscopic image of the chest was then obtained. Lidocaine 1% and lidocaine 1% mixed with epinephrine were used for local anesthetic. A skin incision was made over the indwelling subcutaneous left chest port, and using combination of sharp-blunt dissection, the port was freed and removed. The pocket incision was irrigated with normal saline and closed using a deep to superficial layer of interrupted 3-0 Vicryl suture and Dermabond. Fluoroscopic imaging of the chest following port removal demonstrates no complications. The patient tolerated the procedure well. RADIATION DOSE: Ka,r=2 mGy COMPLICATIONS: None SPECIMENS REMOVED: As described above. ESTIMATED BLOOD LOSS: Less than 3 mL BLOOD PRODUCTS ADMINISTERED: None GRAFTS/IMPLANTS: None IMPRESSION: 1. Existing subcutaneous left chest port with catheter tip terminating at the superior cavoatrial junction. 2. Successful removal of the subcutaneous left chest port. 3. Post removal radiograph demonstrates removal of the entire port without evidence of retained foreign body. PLAN: - After post sedation monitoring, patient will be discharged home. - Patient has been instructed to not submerge the incision until it has completely healed. [facility]-[id number] Procedure Note [facility], Radiology Results Incoming - 08/17/2018 11:24 AM WORKERS COMPENSATION ATTORNEY PERFORMING RADIOLOGIST: aKren Carreon MD ASSISTANTS: None ANESTHESIA TIME: Intraservice moderate sedation was administered by the procedure nurse and monitored by the procedure physician for 57 minutes. Lidocaine 1% and lidocaine 1% mixed epinephrine were used for local anesthetic. PRE PROCEDURE DIAGNOSIS: Left chest port malfunctioning. POST PROCEDURE DIAGNOSIS: Status post subcutaneous left chest port removal. PROCEDURE: Subcutaneous left chest port removal. TECHNIQUE: Written informed consent was obtained prior to the procedure. The patient was placed in a supine position on the procedure table. The left chest was sterilely prepared and draped in the routine manner. All elements of maximal sterile barrier technique were followed. A help desk assistant fluoroscopic image of the chest was then obtained. Lidocaine 1% and lidocaine 1% mixed with epinephrine were used for local anesthetic. A skin incision was made over the indwelling subcutaneous left chest port, and using combination of sharp-blunt dissection, the port was freed and removed. The pocket incision was irrigated with normal saline and closed using a deep to superficial layer of interrupted 3-0 Vicryl suture and Dermabond. Fluoroscopic imaging of the chest following port removal demonstrates no complications. The patient tolerated the procedure well. RADIATION DOSE: Ka,r=2 mGy COMPLICATIONS: None SPECIMENS REMOVED: As described above. ESTIMATED BLOOD LOSS: Less than 3 mL BLOOD PRODUCTS ADMINISTERED: None GRAFTS/IMPLANTS: None IMPRESSION: 1. Existing subcutaneous left chest port with catheter tip terminating at the superior cavoatrial junction. 2. Successful removal of the subcutaneous left chest port. 3. Post removal radiograph demonstrates removal of the entire port without evidence of retained foreign body. PLAN: - After post sedation monitoring, patient will be discharged home. - Patient has been instructed to not submerge the incision until it has completely healed. [facility]-[id number] Performing Organization Address City/State/Zipcode Phone Number [address] [place] [address] IR Port Placement (08/17/2018 10:36 AM WORKERS COMPENSATION ATTORNEY) Specimen Narrative Performed At PERFORMING RADIOLOGIST: MODESTO Carreon MD ASSISTANTS: None ANESTHESIA TYPE: Intraservice moderate sedation was administered by the procedure nurse and monitored by the procedure physician for 57 minutes. Lidocaine 1% and lidocaine 1% mixed with epinephrine were used for local anesthetic. ANTIBIOTICS: Ancef 1 g IV. 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 PROCEDURE: Subcutaneous chest port placement. TECHNIQUE: After explaining the procedure as well as benefits and risks including but not limited to bleeding, infection, and damage to adjacent structures, all of the patient's questions were answered to apparent satisfaction and written informed consent was then obtained. The patient was taken to the angiography suite and placed supine on the table. The rightneck and chest were prepped and draped in usual sterile fashion. Maximal sterile barrier, hand hygiene, and skin preparation technique was followed. Lidocaine was administered locally. Under ultrasound guidance, documentation of vessel patency, needle access with permanent recording, and reporting are performed followed by placement of a sheath in the rightinternal jugular vein. Using ultrasound guidance, the rightinternal jugular vein was punctured with a 21-gauge needle allowing placement of a 0.018 inch guidewire. The needle was removed and a micropuncture sheath was then placed over the guidewire. The guidewire was used to measure the location of the superior cavoatrial junction. It was then exchanged for a 0.035 inch J-wire. A subcutaneous pocket was then created at the infraclavicular fossa using sharp and blunt dissection. The pocket was then irrigated with copious amounts of dilute antibiotic solution. A tunnel was made between the pocket and the venotomy site, through which the 6-[place] port catheter was placed. The [employer] Smart port CT was placed in the pocket. Using the previous measurement, the catheter was cut to length. The venotomy was sequentially dilated to accept a peel-away sheath. The catheter was advanced to the peel-away sheath. Peel-away sheath was removed. Spot radiograph confirmed that the catheter tip is located at the superior cavoatrial junction. The port was accessed and found to flush and aspirate freely. The port incision was closed using a deep layer of interrupted 3-0 Vicryl suture and Dermabond. The small venotomy incision was closed with Dermabond. After closure, percutaneous port access was performed. It flushed and aspirated freely. It was packed with heparin. No immediate complications. RADIATION DOSE: Ka,r=2 mGy COMPLICATIONS: None. SPECIMENS: None. ESTIMATED BLOOD LOSS: Less than 2 mL. BLOOD PRODUCTS ADMINISTERED: None. GRAFTS/IMPLANTS: As described in the above report. IMPRESSION: Successful fluoroscopic-guided placement of a subcutaneous chest port via the right internal jugular vein with catheter tip located at superior cavoatrial junction. PLAN: -Port is ready for immediate use. [facility]-[id number] Procedure Note [facility], Radiology Results Incoming - 08/17/2018 11:24 AM WORKERS COMPENSATION ATTORNEY PERFORMING RADIOLOGIST: Karen Carreon MD ASSISTANTS: None ANESTHESIA TYPE: Intraservice moderate sedation was administered by the procedure nurse and monitored by the procedure physician for 57 minutes. Lidocaine 1% and lidocaine 1% mixed with epinephrine were used for local anesthetic. ANTIBIOTICS: Ancef 1 g IV. 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 PROCEDURE: Subcutaneous chest port placement. TECHNIQUE: After explaining the procedure as well as benefits and risks including but not limited to bleeding, infection, and damage to adjacent structures, all of the patient's questions were answered to apparent satisfaction and written informed consent was then obtained. The patient was taken to the angiography suite and placed supine on the table. The right neck and chest were prepped and draped in usual sterile fashion. Maximal sterile barrier, hand hygiene, and skin preparation technique was followed. Lidocaine was administered locally. Under ultrasound guidance, documentation of vessel patency, needle access with permanent recording, and reporting are performed followed by placement of a sheath in the right internal jugular vein. Using ultrasound guidance, the right internal jugular vein was punctured with a 21-gauge needle allowing placement of a 0.018 inch guidewire. The needle was removed and a micropuncture sheath was then placed over the guidewire. The guidewire was used to measure the location of the superior cavoatrial junction. It was then exchanged for a 0.035 inch J-wire. A subcutaneous pocket was then created at the infraclavicular fossa using sharp and blunt dissection. The pocket was then irrigated with copious amounts of dilute antibiotic solution. A tunnel was made between the pocket and the venotomy site, through which the 6-[place] port catheter was placed. The [employer] Smart port CT was placed in the pocket. Using the previous measurement, the catheter was cut to length. The venotomy was sequentially dilated to accept a peel-away sheath. The catheter was advanced to the peel-away sheath. Peel-away sheath was removed. Spot radiograph confirmed that the catheter tip is located at the superior cavoatrial junction. The port was accessed and found to flush and aspirate freely. The port incision was closed using a deep layer of interrupted 3-0 Vicryl suture and Dermabond. The small venotomy incision was closed with Dermabond. After closure, percutaneous port access was performed. It flushed and aspirated freely. It was packed with heparin. No immediate complications. RADIATION DOSE: Ka,r=2 mGy COMPLICATIONS: None. SPECIMENS: None. ESTIMATED BLOOD LOSS: Less than 2 mL. BLOOD PRODUCTS ADMINISTERED: None. GRAFTS/IMPLANTS: As described in the above report. IMPRESSION: Successful fluoroscopic-guided placement of a subcutaneous chest port via the right internal jugular vein with catheter tip located at superior cavoatrial junction. PLAN: -Port is ready for immediate use. [facility]-[id number] Performing Organization Address City/State/Zipcode Phone Number [facility] [address] [place] [address] Uric acid level (08/17/2018 4:00 AM [employer] ATTORNEY) Uric acid 1.7 (L) 3.4 - 7.0 mg/dL [facility] Specimen Plasma specimen Performing Organization Address City/State/Zipcode Phone Number [facility] DEPARTMENT OF PATHOLOGY AND [address] [place] [address] [facility] [address] [place] [address] MRI Abdomen W Wo Contrast (08/16/2018 9:17 AM [employer]ORNEY)Only the most recent of2 resultswithin the time period is included. Specimen Narrative Performed At EXAMINATION:MRI ABDOMEN W WO CONTRAST [facility] CLINICAL HISTORY:Neoplasmabdomenmetastaticsuspected TECHNIQUE: Multiplanar multisequence MR images of the abdomen were obtained pre- and post dynamic intravenous administration of Gadolinium. COMPARISON:MRI from 05/10/[address] from 08/12/2018 IMPRESSION: 1.Pancreatic head is severely atrophic. There is abnormal ill-defined soft tissue mass at the level of the pancreatic neck involving the gastroesophageal junction measuring 2.4 x 2.5 cm (series 10 image 222). This is consistent with combination of infiltrative tumor and area of posttreatment change and fibrosis. The mass measured approximately 2 x 2.1 cm on prior MRI from 05/10/2018. The mass is along the superior margin of the celiac trunk and occludes the splenic vein. Portal vein and superior mesenteric vein are patent. 2.There is no suspicious liver mass. Scattered small liver cysts present. Gallbladder and biliary tree are normal. Spleen is normal in size. There is a 2.4 cm adenoma in the right adrenal gland. Left adrenal gland and kidneys are within normal limits. 3.Gastrostomy catheter present. There is no intestinal obstruction. There is thickening of the distal esophagus. 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 4.No retroperitoneal adenopathy noted separate from the pancreatic mass. There is no ascites. 5.Regional marrow signal is normal. Summary: 2.4 x 2.5 cm pancreatic mass involving gastroesophageal junction and occluding the splenic vein consistent with combination of infiltrative tumor and posttreatment change, slightly increased in size from 05/10/2018. [facility]-[id number] Procedure Note Interface, Radiology Results Incoming - 08/16/2018 11:03 AM [employer]NEY EXAMINATION: MRI ABDOMEN W WO CONTRAST CLINICAL HISTORY: Neoplasm abdomen metastatic suspected TECHNIQUE: Multiplanar multisequence MR images of the abdomen were obtained pre - and post dynamic intravenous administration of Gadolinium. COMPARISON: MRI from 05/10/[address] from 08/12/2018 IMPRESSION: 1. Pancreatic head is severely atrophic. There is abnormal ill-defined soft tissue mass at the level of the pancreatic neck involving the gastroesophageal junction measuring 2.4 x 2.5 cm (series 10 image 222). This is consistent with combination of infiltrative tumor and area of posttreatment change and fibrosis. The mass measured approximately 2 x 2.1 cm on prior MRI from 05/10/2018. The mass is along the superior margin of the celiac trunk and occludes the splenic vein. Portal vein and superior mesenteric vein are patent. 2. There is no suspicious liver mass. Scattered small liver cysts present. Gallbladder and biliary tree are normal. Spleen is normal in size. There is a 2.4 cm adenoma in the right adrenal gland. Left adrenal gland and kidneys are within normal limits. 3. Gastrostomy catheter present. There is no intestinal obstruction. There is thickening of the distal esophagus. 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 4. No retroperitoneal adenopathy noted separate from the pancreatic mass. There is no ascites. 5. Regional marrow signal is normal. Summary: 2.4 x 2.5 cm pancreatic mass involving gastroesophageal junction and occluding the splenic vein consistent with combination of infiltrative tumor and posttreatment change, slightly increased in size from 05/10/2018. 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 COMPARISON:CT scan August 12, 2018, PET/CT dated May 11, 2020 IMPRESSION: 1. Multiple peritoneal/serosal tumor deposits are present. There is a 2.1 x 3.2 cm deposit involving the anterior rectal wall at the peritoneal reflection. A second area of involvement measuring [place] roximately 2.3 cm is seen in the left lower quadrant at the descending/sigmoid colonic junction. A third deposit is seen involving the cecum measuring 2.7 cm. These are unchanged from immediately prior CT, but the rectal deposit may be slightly larger when compared with the PET/CT. 2. The urinary bladder is unremarkable. 3.The prostate is normal in size. 4.No suspicious osseous lesions are seen. 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 COMPARISON: CT scan August 12, 2018, PET/CT dated May 11, 2020 IMPRESSION: 1. Multiple peritoneal/serosal tumor deposits are present. There is a 2.1 x 3.2 cm deposit involving the anterior rectal wall at the peritoneal reflection. A second area of involvement measuring approximately 2.3 cm is seen in the left lower quadrant at the descending/sigmoid colonic junction. A third deposit is seen involving the cecum measuring 2.7 cm. These are unchanged from immediately prior CT, but the rectal deposit may be slightly larger when compared with the PET/CT. 2. The urinary bladder is unremarkable. 3. The prostate is normal in size. 4. No suspicious osseous lesions are seen. [facility]-[id number] Performing Organization Address City/State/Zipcode Phone Number [facility] [address] [place] [address] CT Chest Wo Contrast Abdomen Wo Contrast Pelvis Wo Contrast (08/12/2018 4:27 PM [employer]NEY) Specimen Narrative Performed At EXAMINATION:CT CHEST WO CONTRAST ABDOMEN WO CONTRAST PELVIS WO [facility] CONTRAST CLINICAL HISTORY:Esophageal reflux TECHNIQUE:Multiple axial images of the chest, abdomen, and pelvis were obtained without intravenous contrast. The lack of intravenous contrast reduces the sensitivity of detecting solid organ disease. Sagittal and coronal computerized reformatted images were obtained. CT images were obtained using low-dose technique with automated exposure control. COMPARISON:CT from 05/08/[address] from 10/17/2017 IMPRESSION: Chest: 1. There is a 5 mm nodule in the right upper lobe (series 3 image 29), not present on CT from 10/17/2017. Lungs are otherwise clear. 2.There is no thoracic adenopathy. 3.There is no pleural effusion. Physiologic trace pericardial fluid noted. 4.Heart is normal in size. There is moderate coronary calcification. Thoracic aorta is normal in caliber. 5.There is a left jugular chest port extending to the cephalic SVC junction. 6.There is small hiatal hernia with thickening of distal esophagus. Correlate with endoscopy. Abdomen and Pelvis: 1. There couple of subcentimeter cysts in the right lobe of the liver. Spleen is normal in size. 2.Pancreas is atrophic and not well seen. Area of pancreatic mass at the level of the proximal stomach is obscured and not adequately evaluated without contrast. 3.There is a 2.5 cm right adrenal adenoma. There is no hydronephrosis or nephrolithiasis. 4.There is no abdominal or pelvic adenopathy or ascites. Aorta is normal in caliber with atherosclerotic calcification. 5.There is abnormal soft tissue density area along the anterior rectal wall extending towards the prostate gland measuring 2.1 x 3.3 cm, which may be involving the seminal vesicle. This is not further evaluated and this exam. Prostate is mildly enlarged. Bladder is unremarkable. There is no intestinal obstruction. 6. No suspicious osseous lesion noted. Summary: 1.Limited unenhanced CT. 2.Indeterminate 5 mm nodule right upper lobe, new from 10/17/2017. 3.Atrophic pancreas with abnormal soft tissue anterior to the gastroesophageal junction which may reflect combination of posttreatment change and/or residual tumor/scarring. 4.There is small hiatal hernia with thickening of distal esophagus, not further evaluated. 5.Indeterminate soft tissue tissue density area anterior to the rectum, as noted above. [facility]-[id number] Procedure Note Interface, Radiology Results Incoming - 08/12/2018 5:34 PM [employer]NEY EXAMINATION: CT CHEST WO CONTRAST ABDOMEN WO CONTRAST PELVIS WO CONTRAST CLINICAL HISTORY: Esophageal reflux TECHNIQUE: Multiple axial images of the chest, abdomen, and pelvis were obtained without intravenous contrast. The lack of intravenous contrast reduces the sensitivity of detecting solid organ disease. Sagittal and coronal computerized reformatted images were obtained. CT images were obtained using low-dose technique with automated exposure control. COMPARISON: CT from 05/08/[address] from 10/17/2017 IMPRESSION: Chest: 1. There is a 5 mm nodule in the right upper lobe (series 3 image 29), not present on CT from 10/17/2017. Lungs are otherwise clear. 2. There is no thoracic adenopathy. 3. There is no pleural effusion. Physiologic trace pericardial fluid noted. 4. Heart is normal in size. There is moderate coronary calcification. Thoracic aorta is normal in caliber. 5. There is a left jugular chest port extending to the cephalic SVC junction. 6. There is small hiatal hernia with thickening of distal esophagus. Correlate with endoscopy. Abdomen and Pelvis: 1. There couple of subcentimeter cysts in the right lobe of the liver. Spleen is normal in size. 2. Pancreas is atrophic and not well seen. Area of pancreatic mass at the level of the proximal stomach is obscured and not adequately evaluated without contrast. 3. There is a 2.5 cm right adrenal adenoma. There is no hydronephrosis or nephrolithiasis. 4. There is no abdominal or pelvic adenopathy or ascites. Aorta is normal in caliber with atherosclerotic calcification. 5. There is abnormal soft tissue density area along the anterior rectal wall extending towards the prostate gland measuring 2.1 x 3.3 cm, which may be involving the seminal vesicle. This is not further evaluated and this exam. Prostate is mildly enlarged. Bladder is unremarkable. There is no intestinal obstruction. 6. No suspicious osseous lesion noted. Summary: 1. Limited unenhanced CT. 2. Indeterminate 5 mm nodule right upper lobe, new from 10/17/2017. 3. Atrophic pancreas with abnormal soft tissue anterior to the gastroesophageal junction which may reflect combination of posttreatment change and/or residual tumor/scarring. 4. There is small hiatal hernia with thickening of distal esophagus, not further evaluated. 5. Indeterminate soft tissue tissue density area anterior to the rectum, as noted above. [id number] Performing Organization Address City/State/Zipcode Phone Number [facility] [address] [place] [address] PET/CT Skull Base To Mid Thigh (05/11/2018 12:45 PM CDT) Specimen Narrative Performed At EXAMINATION:PET CT SKULL BASE TO MID THIGH [facility] CLINICAL HISTORY: Neoplasmpancreasrx monitor or follow up, lungnodules ; [facility] COMPARISON:No prior PET scans available for comparison. MRI abdomen yesterday, CT abdomen and pelvis 05/08/2018, outside CT chest 04/12/2018 TECHNIQUE: The patient received 10-15 mCi 18-FDG intravenously. 1 hour later, PET/CT scanning from the orbits to the mid thighs was performed. CT scanning was nondiagnostic and used for attenuation correction purposes and to aid in localization of any abnormal findings on the PET images. Automated dose exposure control was utilized. Blood glncvex=[id number]. FINDINGS: Head and Neck There is no suspicious lymph node uptake and is no evidence of malignancy in the visualized brain. Chest A small focus of injected radiotracer is incidentally noted in the distal aspect of the Port-A-Cath. The uptake is of no clinical significance, but the central line does not quite reach the SVC. Atelectasis and/or infiltrate posterior left lower lobe with mild uptake (SUV=4.2), new from outside chest CT. A few foci of uptake around the left chest represent radiotracer within tubing outside the body, of no clinical significance. One focus of mild uptake is present in the subcutaneous area/musculature in the posterior left upper chest, with no corresponding abnormality on CT (SUV=2.7), likely inflammatory. Mediastinal, hilar, and axillary uptake are normal. Abdomen Prominent uptake is present within ill-defined soft tissue on the noncontrast CT in the body of the pancreas and probably extending into the proximal stomach and/or GE junction (SUV=5.7). Uptake in the spleen is mildly to moderately increased diffusely, although bone marrow uptake is normal. Uptake in the liver, adrenal glands, and kidneys is normal. There is no suspicious retroperitoneal or mesenteric lymph node uptake. Pelvis There is no suspicious pelvic or inguinal lymph node uptake. Marked uptake focally in the cecum and adjacent to the proximal sigmoid may both be due to small soft tissue masses, difficult to clearly see on the nondiagnostic quality CT images (SUV=7.2). Osseous Structures There is no suspicious osseous uptake. IMPRESSION: 1.Abnormal uptake is present in the body of the pancreas and extending into the adjacent stomach and/or GE junction, very suspicious for malignancy. 2.A couple of foci of marked uptake in the pelvis reside within the colon or immediately adjacent soft tissue. This is fairly suspicious for metastatic disease, but could represent physiological bowel uptake. 3.Diffusely increased uptake in the spleen is very unlikely to be due to metastatic disease, unless it is from lymphoma. In this patient, it is presumably infectious/inflammatory or possibly secondary to pharmacological bone marrow stimulating therapy. 4.New infiltrate/atelectasis with active inflammatory uptake in the left lower lobe. No suspicious pulmonary nodules. 5.Central line does not quite reach the SVC. [id number] Procedure Note Hm Interface, Radiology Results Incoming - 05/11/2018 2:50 PM CDT EXAMINATION: PET CT SKULL BASE TO MID THIGH CLINICAL HISTORY: Neoplasm pancreas rx monitor or follow up, lung nodules ; [facility] COMPARISON: No prior PET scans available for comparison. MRI abdomen yesterday , CT abdomen and pelvis 05/08/2018, outside CT chest 04/12/2018 TECHNIQUE: The patient received 10-15 mCi 18-FDG intravenously. 1 hour later, PET/CT scanning from the orbits to the mid thighs was performed. CT scanning was nondiagnostic and used for attenuation correction purposes and to aid in localization of any abnormal findings on the PET images. Automated dose exposure control was utilized. Blood vnwctkr=[id number]. FINDINGS: Head and Neck There is no suspicious lymph node uptake and is no evidence of malignancy in the visualized brain. Chest A small focus of injected radiotracer is incidentally noted in the distal aspect of the Port-A-Cath. The uptake is of no clinical significance, but the central line does not quite reach the SVC. Atelectasis and/or infiltrate posterior left lower lobe with mild uptake (SUV=4.2), new from outside chest CT. A few foci of uptake around the left chest represent radiotracer within tubing outside the body, of no clinical significance. One focus of mild uptake is present in the subcutaneous area/musculature in the posterior left upper chest, with no corresponding abnormality on CT (SUV=2.7), likely inflammatory. Mediastinal, hilar, and axillary uptake are normal. Abdomen Prominent uptake is present within ill-defined soft tissue on the noncontrast CT in the body of the pancreas and probably extending into the proximal stomach and/or GE junction (SUV=5.7). Uptake in the spleen is mildly to moderately increased diffusely, although bone marrow uptake is normal. Uptake in the liver, adrenal glands, and kidneys is normal. There is no suspicious retroperitoneal or mesenteric lymph node uptake. Pelvis There is no suspicious pelvic or inguinal lymph node uptake. Marked uptake focally in the cecum and adjacent to the proximal sigmoid may both be due to small soft tissue masses, difficult to clearly see on the nondiagnostic quality CT images (SUV=7.2). Osseous Structures There is no suspicious osseous uptake. IMPRESSION: 1. Abnormal uptake is present in the body of the pancreas and extending into the adjacent stomach and/or GE junction, very suspicious for malignancy. 2. A couple of foci of marked uptake in the pelvis reside within the colon or immediately adjacent soft tissue. This is fairly suspicious for metastatic disease, but could represent physiological bowel uptake. 3. Diffusely increased uptake in the spleen is very unlikely to be due to metastatic disease, unless it is from lymphoma. In this patient, it is presumably infectious/inflammatory or possibly secondary to pharmacological bone marrow stimulating therapy. 4. New infiltrate/atelectasis with active inflammatory uptake in the left lower lobe. No suspicious pulmonary nodules. 5. Central line does not quite reach the SVC. [facility]-[id number] Performing Organization Address [facility]/Zipcode Phone Number [facility] [address] [place] [address] XR Chest 2 Vw (05/10/2018 7:59 PM CDT) Specimen Narrative Performed At Examination: [facility] 2 [facility] Clinical history: Shortness of breath, eval for consolidation seen on MRI abdomen Comparison: May 07 Impression: 1. The heart and pulmonary vasculature are within normal limits. 2. Consolidation within the left posterior base demonstrated on the abdominal right performed this morning is not well demonstrated radiographically.. 3. There is no acute osseous pathology. 4. Portacatheter is stable. [id number] Procedure Note Interface, Radiology Results Incoming - 05/10/2018 9:45 PM CDT Examination: XR CHEST 2 VW Clinical history: Shortness of breath, eval for consolidation seen on MRI abdomen Comparison: May 07 Impression: 1. The heart and pulmonary vasculature are within normal limits. 2. Consolidation within the left posterior base demonstrated on the abdominal right performed this morning is not well demonstrated radiographically.. 3. There is no acute osseous pathology. 4. Portacatheter is stable. [facility]-[id number] Performing Organization Address [facility]/Zipcode Phone Number [facility] [address] [place] [address] Cortisol, 60 minutes (05/10/2018 6:00 PM CDT) Cortisol, 60 Min 25 ug/dL [facility] DEPARTMENT OF Comment: PATHOLOGY AND Normal response to 0.25 mg 1-24 ACTH (cosyntropin) is a peak [facility] cortisol concentration of greater than 14 ug/dL at either 30 minutes or 60 minutes post-stimulation. Specimen Plasma specimen Performing Organization Address City/[facility]/Zipcode Phone Number [facility] DEPARTMENT OF PATHOLOGY AND [address] [place] [address] GENOMIC MEDICINE Adrenocorticotropic hormone (05/10/2018 6:00 PM CDT)Only the most recent of3 resultswithin the time period is included. Adrenocorticotropic hormone 14.3 7.2 - 63.[address] [facility] DEPARTMENT OF pg/mL PATHOLOGY AND GENOMIC MEDICINE Specimen Blood Performing Organization Address City/[facility] Phone Number [facility] DEPARTMENT OF PATHOLOGY AND [address] [place] [phone] GENOMIC MEDICINE Cortisol, 30 minutes (05/10/2018 5:30 PM CDT) Cortisol, 30 min 19 ug/dL [facility] DEPARTMENT OF Comment: PATHOLOGY AND Normal response to 0.25 mg 1-24 ACTH (cosyntropin) is a peak GENOMIC MEDICINE cortisol concentration of greater than 14 ug/dL at either 30 minutes or 60 minutes post-stimulation. Specimen Plasma specimen Performing Organization Address City/[facility] Phone Number [facility] DEPARTMENT OF PATHOLOGY AND [address] [place] [phone] [facility] MRI Brain W Wo Contrast (05/10/2018 7:58 AM CDT) Specimen Narrative Performed At EXAMINATION:MRI BRAIN W WO CONTRAST [facility] CLINICAL HISTORY:Headachechronicnormal neuro exam, HApancreas cancer COMPARISON: MRI brain dated 08/15/2001. FINDINGS: There postcontrast MRI of the brain is interpreted. Diffusion imaging demonstrates no abnormal restricted diffusion. The brain is normal in morphology and in signal intensity. No abnormal parenchymal or leptomeningeal enhancement is seen. No extra-axial collection or mass effect is seen. No hemorrhage is identified. Major vascular flow-voids are preserved. IMPRESSION: Unremarkable MRI of the brain. No evidence of brain metastasis. [id number] Procedure Note Interface, Radiology Results Incoming - 05/10/2018 8:18 AM CDT EXAMINATION: MRI BRAIN W WO CONTRAST CLINICAL HISTORY: Headache chronic normal neuro exam, MAK pancreas cancer COMPARISON: MRI brain dated 08/15/2001. FINDINGS: There postcontrast MRI of the brain is interpreted. Diffusion imaging demonstrates no abnormal restricted diffusion. The brain is normal in morphology and in signal intensity. No abnormal parenchymal or leptomeningeal enhancement is seen. No extra-axial collection or mass effect is seen. No hemorrhage is identified. Major vascular flow-voids are preserved. IMPRESSION: Unremarkable MRI of the brain. No evidence of brain metastasis. [id number] Performing Organization Address [facility]/Zipcode Phone Number [facility] [address] [place] [id number] Cortisol, 00 minutes (05/09/2018 5:00 PM CDT) Cortisol, 00 8 ug/dL [facility] DEPARTMENT OF minutes Comment: PATHOLOGY AND Normal response to 0.25 mg 1-24 ACTH (cosyntropin) is a peak [facility] cortisol concentration of greater than 14 ug/dL at either 30 minutes or 60 minutes post-stimulation. Specimen Plasma specimen Performing Organization Address [facility] Centercode Phone Number [facility] DEPARTMENT OF PATHOLOGY AND [address] [place] [id number] [facility] Cortisol level, random (05/09/2018 4:00 AM CDT) Cortisol, random 8 ug/dL [facility] DEPARTMENT OF Comment: PATHOLOGY AND Reference Ranges are not established for non-timed Cortisol levels. [facility] Reference Range for Timed Cortisol: 6 - 10 AM 6 - 18 ug/dl 4 - 8PM 3 - 11 ug/dl Specimen Plasma specimen Narrative Performed At Add on YAHAIRA CRYSTAL per Dr. Yarbrough [facility] DEPARTMENT OF PATHOLOGY AND GENOMIC at106:19 [facility]. MEDICINE Performing Organization Address [facility] Centerc[facility]i Phone Number [facility] DEPARTMENT OF PATHOLOGY AND [address] [place] [phone] [facility] CT Abdomen Pelvis W Wo Contrast (05/08/2018 2:49 AM CDT) Specimen Narrative Performed At Examination:CT ABDOMEN PELVIS W WO CONTRAST [facility] Clinical History: Pancreatic cancersuspected upper GI bleeding Comparison: 10/13/2017 Findings: CT scans are performed using radiation dose reduction techniques.Technical factors are evaluated and adjusted to ensure appropriate moderation of exposure.Automated dose management technology is applied to adjust radiation exposure while achieving a diagnostic quality image. CT scan of the abdomen and pelvis was performed without and with intravenous contrast. The spleen, gallbladder, and left gland are unremarkable. There is a right adrenal nodule containing fat measuring up to 2.4 cm. This is unchanged. Hepatic cyst is noted measuring 1 cm. Remainder the liver is unremarkable. At the body of the pancreas there is a focus of contrast enhancement which follows the enhancement pattern of the blood pool. It measures approximately 1 cm. There is surrounding hypodensity noted which measures up to 1.7 cm. 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 The surrounding low density probably represents partial thrombosis. This is adjacent to and abuts the lesser curvature of the stomach. No definite blood product is seen within the lumen of the stomach on precontrast image. The kidneys are within normal limits without hydronephrosis. No bowel thickening is seen. No fat stranding is seen. No bowel distention is seen. The appendix is not visualized. No free air or fluid is seen. Urinary bladder is unremarkable. The visualized lung bases shows diffuse circumferential wall thickening of the distal esophagus. IMPRESSION: 1. 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 It is located in the region of the body of the pancreas. This is likely related to sequela of chronic pancreatitis. This abuts the lesser curvature of the stomach and thus erosion to the stomach cannot be excluded. 2. Circumferential wall thickening of the distal esophagus may represent inflammatory process. 3. Stable right adrenal nodule containing fat most consistent with myelolipoma. [facility]-[id number] Procedure Note [facility], Radiology Results Incoming - 05/08/2018 3:39 AM CDT Examination: CT ABDOMEN PELVIS W WO CONTRAST Clinical History: Pancreatic cancer suspected upper GI bleeding Comparison: 10/13/2017 Findings: CT scans are performed using radiation dose reduction techniques. Technical factors are evaluated and adjusted to ensure appropriate moderation of exposure. Automated dose management technology is applied to adjust radiation exposure while achieving a diagnostic quality image. CT scan of the abdomen and pelvis was performed without and with intravenous contrast. The spleen, gallbladder, and left gland are unremarkable. There is a right adrenal nodule containing fat measuring up to 2.4 cm. This is unchanged. Hepatic cyst is noted measuring 1 cm. Remainder the liver is unremarkable. At the body of the pancreas there is a focus of contrast enhancement which follows the enhancement pattern of the blood pool. It measures approximately 1 cm. There is surrounding hypodensity noted which measures up to 1.7 cm. 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 The surrounding low density probably represents partial thrombosis. This is adjacent to and abuts the lesser curvature of the stomach. No definite blood product is seen within the lumen of the stomach on precontrast image. The kidneys are within normal limits without hydronephrosis. No bowel thickening is seen. No fat stranding is seen. No bowel distention is seen. The appendix is not visualized. No free air or fluid is seen. Urinary bladder is unremarkable. The visualized lung bases shows diffuse circumferential wall thickening of the distal esophagus. IMPRESSION: 1. 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 It is located in the region of the body of the pancreas. This is likely related to sequela of chronic pancreatitis. This abuts the lesser curvature of the stomach and thus erosion to the stomach cannot be excluded. 2. Circumferential wall thickening of the distal esophagus may represent inflammatory process. 3. Stable right adrenal nodule containing fat most consistent with myelolipoma. [facility]-[id number] Performing Organization Address City/State/Zipcode Phone Number [facility] [address] [place] [address] Transfuse RBC (05/08/2018 1:33 AM CDT)Only the most recent of2 resultswithin the time period is included.CENTRAL LINE (05/07/2018 11:55 PM CDT) Narrative Performed At Krystal Luu MD 05/07/2018 11:57 PM Central Line Insertion Performed by: KRYSTAL LUU Authorized by: KRYSTAL LUU Consent: Consent obtained:Written Consent given by:Patient Risks discussed:Arterial puncture, bleeding, infection, incorrect placement and nerve damage Alternatives discussed:Delayed treatment Daisy protocol: Procedure explained and questions answered to patient or proxy's satisfaction: yes Relevant documents present and verified: yes Test results available and properly labeled: yes Imaging studies available: yes Required blood products, implants, devices, and special equipment available: yes Site/side marked: yes Immediately prior to procedure, a time out was called: yes Patient identity confirmed:Verbally with patient and arm band Pre-procedure details: Hand hygiene: Hand hygiene performed prior to insertion Sterile barrier technique: All elements of maximal sterile technique followed Skin preparation:ChloraPrep Skin preparation agent: Skin preparation agent completely dried prior to procedure Anesthesia (see MAR for exact dosages): Anesthesia method:Local infiltration Local anesthetic:Lidocaine 2% w/o epi Procedure details: Catheter type:Triple lumen Catheter size:7.5 Fr Catheter length (cm):20 cm Catheter site: femoral vein Catheter Site Laterality:Right Patient position:Flat Landmarks identified: yes Ultrasound guidance: yes Sterile ultrasound techniques: Sterile gel and sterile probe covers were used Number of attempts:1 Successful placement: yes Post-procedure details: Post-procedure:Dressing applied Assessment:Blood return through all ports and free fluid flow Patient tolerance of procedure:Tolerated well, no immediate complications Comments: R femoral CVC insertion, ultrasound guided, using Seldinger technique. Krystal Luu MD XR Chest 1 Vw Portable (05/07/2018 11:00 AM CDT) Specimen Narrative Performed At Study:XR CHEST 1 VW PORTABLE [facility] History: pancreatic cancerevaluate for metastasis COMPARISON: None. IMPRESSION: A single view of the chest. Left chest Port-A-Cath has its tip in the brachiocephalic junction.There is no focal consolidation, pleural effusion or pneumothorax.Cardiac silhouette is normal.Visualized osseous structures arewithout acute abnormality. [id number] Procedure Note Interface, Radiology Results Incoming - 05/07/2018 11:04 AM CDT Study:XR CHEST 1 VW PORTABLE History: pancreatic cancer evaluate for metastasis COMPARISON: None. IMPRESSION: A single view of the chest. Left chest Port-A-Cath has its tip in the brachiocephalic junction. There is no focal consolidation, pleural effusion or pneumothorax. Cardiac silhouette is normal. Visualized osseous structures are without acute abnormality. [id number] Performing Organization Address City/[facility] Centercode Phone Number [facility] [address] [place] [address] Carcinoembryonic antigen (CEA) (05/07/2018 10:45 AM CDT) CEA 4.0 (H) 0.0 - 3.[address] [facility] DEPARTMENT OF Comment: ng/mL PATHOLOGY AND Reference range for heavy smokers:0.0 - 5.5 ng/mL [employer] 8000 CEA immunoassay was used. Results obtained with different assay methods or kits should not be used interchangeably and may be different. Specimen Serum Performing Organization Address City/[facility]/Zipcode Phone Number [facility] DEPARTMENT OF PATHOLOGY AND [address] [place] [address] [employer] [place] Esophagram Complete (04/26/2018 9:57 AM CDT) Specimen Narrative Performed At EXAMINATION:[place] ESOPHAGRAM COMPLETE [facility] CLINICAL HISTORY:R13.10 Dysphagiaunspecified, DYSPHAGIA COMPARISON:None. [facility] DOSE: 14.920 mGy FINDINGS: The patient swallowed barium without difficulty. The esophagus demonstrates normal motility. No focal mucosal abnormality is identified. There is a tight distal esophageal stricture. There is no evidence of gastroesophageal reflux. IMPRESSION: Very tight distal esophageal stricture. [facility]-[id number] Procedure Note Interface, Radiology Results Incoming - 04/26/2018 10:26 AM CDT EXAMINATION: [place] ESOPHAGRAM COMPLETE CLINICAL HISTORY: R13.10 Dysphagia unspecified, DYSPHAGIA COMPARISON: None. [facility] DOSE: 14.920 mGy FINDINGS: The patient swallowed barium without difficulty. The esophagus demonstrates normal motility. No focal mucosal abnormality is identified. There is a tight distal esophageal stricture. There is no evidence of gastroesophageal reflux. IMPRESSION: Very tight distal esophageal stricture. [facility]-[id number] Performing Organization Address City/[facility] Phone Number [facility] [address] [place] [address] CT Chest External Study (04/12/2018 9:41 AM CDT) Specimen Narrative Performed At This exam was not acquired at a [facility] facility and has not been [facility] interpreted by a [facility] Provider.The exam was imported into our imaging system for comparisons purposes. Performing Organization Address [facility] Phone Number [facility] [address] [place] [address] after 12/27/2017 Advance Directives Patient has advance care planning documents, and code status on file. For more information, please contact:[address] [address] Code Status Date Activated Date Inactivated Comments DNR 12/24/2018 3:10 PM Does patient have decision-making capacity? No Is the patient's imminent? No Code Status decision reached by: Legal Surrogate Name of Surrogate: Saba Soto Surrogate Relation: 2. Spouse
[2018-12-28] MEDS ORDERED: SODIUM CHLORIDE 0.9% 10ML INJ IV PRN (20:55)
[2018-12-29] MEDS: HYDROMORPHONE HCL 1 MG/ML INJ IV PRN ×5 (01:34→22:08)
[2018-12-29] MEDS: LORazepam 2 MG/ML VIAL IV PRN ×3 (04:33→16:16)
[2018-12-29] MEDS ORDERED: SCOPOLAMINE HYDROBROMIDE PATCH TD PRN (09:36)
[2018-12-30] MEDS: HYDROMORPHONE HCL 1 MG/ML INJ IV PRN ×3 (04:08→19:29)
[2018-12-30] MEDS: LORazepam 2 MG/ML VIAL IV PRN ×2 (08:01→14:42)
[2018-12-30] MEDS: HYDROMORPHONE HCL 1 MG/ML INJ IV SCH ×2 (15:20→21:58)
[2018-12-31] MEDS: LORazepam 2 MG/ML VIAL IV PRN (02:19)
[2018-12-31] MEDS: HYDROMORPHONE HCL 1 MG/ML INJ IV PRN ×2 (02:34→14:12)
[2018-12-31] MEDS: HYDROMORPHONE HCL 1 MG/ML INJ IV SCH ×4 (05:26→21:49)
[2019-01-01] MEDS: HYDROMORPHONE HCL 1 MG/ML INJ IV PRN ×3 (00:46→14:15)
[2019-01-01] MEDS: HYDROMORPHONE HCL 1 MG/ML INJ IV SCH ×4 (03:06→22:19)
[2019-01-01] MEDS: LORazepam 2 MG/ML VIAL IV PRN ×4 (05:43→20:48)
[2019-01-02] MEDS: HYDROMORPHONE HCL 1 MG/ML INJ IV PRN ×2 (02:00→08:45)
[2019-01-02] MEDS: HYDROMORPHONE HCL 1 MG/ML INJ IV SCH ×3 (04:50→15:08)
[2019-01-02] MEDS: LORazepam 2 MG/ML VIAL IV PRN (17:46)
--- NOTE | 2019-01-04 12:39 | P.SSS ---
Patient History Date of Service: 01/04/19 Reason for admission: Inpatient Hospice History of Present Illness: 63 y/o M with Pmhx of metastatic Pancreatic Cancer admitted to the hospital for Inpatient hospice after being transferred from OSH Allergies codeine Adverse Reaction (Verified 12/28/18 20:14) Nausea/Vomiting Home Medications: Diphenhydramine [Benadryl*] 25 mg PO BEDTIME 12/28/18 Ketorolac Tromethamine 10 mg PO BEDTIME 12/28/18 Zolpidem Tartrate 10 mg PO BEDTIME 12/28/18 - Past Medical/Surgical History Has patient received pneumonia vaccine in the past: No Diabetic: No -: pancreatic cancer -: lyme disease -: brain aneurysm 1996 -: explor lap subtotal colectomy benjamin end ileostomy creation RLQ -: sigmoid mucus fistula LLQ -: port a cath -: Appendectomy -: elbow, knee arthroplasty -: laminectomy -: PEG -: U/S upper GI tract, endoscopic - Social History Smoking Status: Never smoker Alcohol use: No Place of Residence: Home Review of Systems 10-point ROS is otherwise unremarkable Physical Examination - Vital Signs Temperature: 98.1 F Blood Pressure: 110/69 Pulse: 104 Respirations: 17 Pulse Ox (%): 86 - Physical Exam General: Cachectic, Comatose Neck: Supple Respiratory: Clear to auscultation bilaterally, Normal air movement Cardiovascular: Regular rate/rhythm, Normal S1 S2 Gastrointestinal: Distended, Tenderness Neurological: Abnormal cranial nerve function, Abnormal reflexes - Diagnosis (Problem(s)) (1) Hospice care Status: Acute (2) Pancreatic cancer Status: Acute Qualifiers: Pancreatic malignancy location: unspecified Qualified Code(s): C25.9 - Malignant neoplasm of pancreas, unspecified Treatment Summary: Admitted for Inpatient Hospice and on Inpatient Hospice - Disposition Disposition:
== END 2019-01-02 20:55 | disposition expired | DRG 951 ==
LOC: 2ND 19:43
PROVIDERS: ADMIT Family Medicine; ATTEND Family Medicine
DX: Z51.5 Encounter for palliative care (principal); C25.9 Malignant neoplasm of pancreas, unspecified; C79.9 Secondary malignant neoplasm of unspecified site
CPT/HCPCS: J1170